=== PATIENT | male | born 1935 | race Caucasian/White ===

== ENCOUNTER 2016-07-07 08:45 | Inpatient (IN) ==
[2016-07-07] MEDS ORDERED: *HR* Morphine 2 MG/ML SYRINGE IVP ONE ×2 (09:14→23:54)
[2016-07-07] MEDS ORDERED: Ondansetron ODT 4 MG TAB.RAPDIS SL ONE (09:14)
[2016-07-07] MEDS ORDERED: 0.9 % Sodium Chloride 1,000 ML IVC ONE (09:14)
--- NOTE | 2016-07-07 09:22 | Emergency Department Note ---
Disposition Clinical Impression: Small bowel obstruction Disposition: Admitted As Inpatient Condition: Good Abdominal Pain HPI - General Chief Complaint: ED Abdominal Pain Stated Complaint: ABD pain Time Seen by Provider: 07/07/16 09:03 Source: patient Nursing Notes Reviewed: Yes Vital Signs Reviewed: Yes - History of Present Illness HPI Narrative: 81-year-old male history of coronary artery disease presents to emergency department with ongoing abdominal pain. He was discharged from the hospital 2 days ago after spending 2 days in the hospital for small bowel obstruction ileitis. This was his first bout of small bowel obstruction and denies any abdominal surgeries in the past. Over the last 24 hours he has eaten a small amount of food, pizza last night. He has been passing gas occasionally but has not had a bowel movement or the urge to have a bowel movement. He has had some nausea without vomiting. No fevers or chills. Pain is diffusely in the abdomen described as crampy and intermittent but does not radiate into his back. Denies any chest pain, lightheadedness, syncope, cough or shortness of breath Pain Scale: 6 - Related Data Home Medications Medication Instructions Recorded Confirmed Amlodipine Besylate [Norvasc] 10 mg PO DAILY 02/20/15 07/03/16 Aspirin Enteric Coated [Aspirin EC] 81 mg PO DAILY 02/20/15 07/03/16 Carvedilol [Coreg] 25 mg PO BID 02/20/15 07/03/16 Clopidogrel [Plavix] 75 mg PO DAILY 02/20/15 07/03/16 Lisinopril [Zestril] 20 mg PO DAILY 02/20/15 07/03/16 Pravastatin Sodium 20 mg PO DAILY 02/20/15 07/03/16 Tramadol HCl/Acetaminophen 1 tab PO Q6H PRN 02/20/15 07/03/16 [Tramadol-Acetaminophn 37.5-325] Zolpidem Tartrate [Edluar] 5 mg PO HS 06/25/16 07/03/16 Previous Rx's Medication Instructions Recorded Omeprazole [PriLOSEC] 20 mg PO BIDAC #30 cap 06/25/16 Ciprofloxacin [Cipro] 500 mg PO BID #16 tablet 07/05/16 Hydrocodone/Acetaminophen 1 each PO Q6H PRN #15 tablet 07/05/16 [Hydrocodon-Acetaminophen 5-325] MetroNIDAZOLE [Flagyl] 500 mg PO TID #24 tablet 07/05/16 Sennosides/Docusate Sodium [Senna 1 each PO BID #20 tablet 07/05/16 Plus] Allergies Allergy/AdvReac Type Severity Reaction Status Date / Time No Known Allergies Allergy Verified 07/03/16 11:34 All systems ED: reviewed and negative except as stated. Constitutional: Denies: fever Cardiovascular: Denies: chest pain, dyspnea on exertion Respiratory: Denies: cough, dyspnea Gastrointestinal: Reports: abdominal pain, nausea. Denies: vomiting, diarrhea, hematemesis, melena, hematochezia Genitourinary: Denies: dysuria Musculoskeletal: Denies: back pain Integumentary: Denies: rash Neurological: Denies: headache Abdominal Pain PMH - Past Medical History Medical history: Reports: cardiomyopathy, coronary artery disease, hypertension , myocardial infarction, other Male Surgical History: Reports: carotid endarterectomy Psychiatric history: Reports: no psych history - Social History Smoking status: Former smoker Alcohol use: Reports: none Drug use: Reports: none, other Physical Exam General: He appears comfortable, occasionally have an abdominal cramping, talkative, alert and oriented and appropriate Cardiovascular: Regular rate and rhythm. S1, S2. No murmurs, rubs or gallops. Respiratory: Mild expiratory rhonchi bilaterally without any respiratory distress, wheezing or rales. No coughing, speaking in full sentences. Abdomen: Soft with voluntary guarding throughout. Most of his tenderness is localized in the suprapubic area. No overlying signs of injury. Hyperactive bowel sounds. No palpable organomegaly. No hernias palpated. Eyes: Conjunctiva clear without scleral icterus HENT: No oral mucosal lesions, moist mucous membranes Neuro: Alert and oriented 3, moving all extremities appropriately Musculoskeletal: No joint tenderness or swelling Skin: No redness, swelling, edema or signs of DVT. No signs of infection. Psych: Appropriate - General Limitations: no limitations General appearance: alert, in no apparent distress Course Course Narrative: Presents to the emergency department with lower abdominal pain and nausea. He was admitted on 07/03/16 due to small bowel obstruction with ileitis. He spent 2 days in the hospital, was NPO, began tolerating fluids and was DC'd home. At home he had little appetite and ongoing nausea with no bowel movement. He is however passing gas still. No history of surgeries on the abdomen or previous bowel obstructions. On exam today his abdomen is tender mostly in the lower area, he is afebrile and appears well without any peritoneal signs. He was given pain medicine in the ER with good pain control. Repeat imaging today was performed and CAT scan shows ongoing small bowel obstruction with similar transition point with similar inflammatory changes of the bowel wall. It does demonstrate a mass in the same area that is concerning for malignancy. He also has a stable aortic dilation. We did not use contrast this patient bc he had reported history of renal insufficiency and last time he was here his creatinine was slightly elevated. Plan to admit for small bowel obstruction, partial versus complete an NG tube was not placed at this time but may be required during his stay. Discussed with the deposition reporter hospitalist Dr. Wayne who accepts for admission, no further orders at this time Vital Signs Temperature 99.3 F 07/07/16 08:48 Pulse Rate 79 07/07/16 08:48 Respiratory Rate 16 07/07/16 08:48 Blood Pressure 167/51 07/07/16 08:48 O2 Sat by Pulse Oximetry 97 07/07/16 08:48 Temperature 99.3 F 07/07/16 08:48 Pulse Rate 73 07/07/16 11:09 Respiratory Rate 15 07/07/16 11:09 Blood Pressure 134/90 07/07/16 11:09 O2 Sat by Pulse Oximetry 99 07/07/16 11:09 Oxygen Delivery Oxygen Delivery Room Air Abdominal Pain - Lab Data Result diagrams: 07/07/16 09:36 07/07/16 09:36 Lab Results 07/07/16 07/07/16 Range/Units 09:36 09:36 WBC 8.7 (4.3-11.1) K/mcL RBC 4.61 (4.19-5.50) M/mcL Hgb 13.0 D (12.9-16.9) g/dL Hct 39.6 (37.5-50.1) % MCV 85.9 (83.0-100.0) fL MCH 28.2 (28.0-33.3) pg MCHC 32.8 (31.6-35.5) g/dL RDW 12.9 (11.5-14.5) % Plt Count 208 (140-400) K/mcL MPV 10.4 (9.4-12.4) fL Immature Gran % 0.3 (0-4) % Seg Neutrophils % 81.3 % Lymphocytes % 8.6 % Monocytes % 8.9 % Eosinophils % 0.7 % Basophils % 0.2 % Neutrophils # 7.1 (1.6-8.9) K/mcL Lymphocytes # 0.8 (0.6-4.6) K/mcL Monocytes # 0.8 (0.0-1.3) K/mcL Eosinophils # 0.1 (0.0-0.6) K/mcL Basophils # 0.0 (0.0-0.2) K/mcL Sodium 142 (136-145) mEq/L Potassium 3.6 (3.5-4.5) mEq/L Chloride 108 (98-109) mEq/L Carbon Dioxide 27 (19-29) mEq/L BUN 14 D (8-26) mg/dL Creatinine 1.24 (0.72-1.25) mg/dL Est GFR ( Amer) > 60 (> 60) Est GFR (Non-Af Amer) 56 L (> 60) BUN/Creatinine Ratio 11 (6-26) Glucose 134 H (70-99) mg/dL Calculated Osmolality 296 (280-300) Calcium 8.9 (8.6-10.8) mg/dL
[2016-07-07 09:41] LABS: Basophils % 0.2 %; Eosinophils # 0.1 K/mcL (0.0-0.6); Eosinophils % 0.7 %; Hematocrit 39.6 % (37.5-50.1); Immature Granulocytes % 0.3 % (0-4); Lymphocytes # 0.8 K/mcL (0.6-4.6); Lymphocytes % 8.6 %; Mean Corpuscular HGB Conc 32.8 g/dL (31.6-35.5); Mean Corpuscular Hemoglobin 28.2 pg (28.0-33.3); Mean Corpuscular Volume 85.9 fL (83.0-100.0); Mean Platelet Volume 10.4 fL (9.4-12.4); Monocytes # 0.8 K/mcL (0.0-1.3); Monocytes % 8.9 %; Neutrophils # 7.1 K/mcL (1.6-8.9); Platelet Count 208 K/mcL (140-400); Red Blood Count 4.61 M/mcL (4.19-5.50); Red Cell Distribution Width 12.9 % (11.5-14.5); Segmented Neutrophils % 81.3 %
[2016-07-07 09:53] LABS: BUN/Creatinine Ratio 11 (6-26); Blood Urea Nitrogen 14 mg/dL (8-26); Calcium 8.9 mg/dL (8.6-10.8); Carbon Dioxide 27 mEq/L (19-29); Chloride 108 mEq/L (98-109); Glucose 134 mg/dL (70-99); Osmolality,Calculated 296 (280-300); Potassium 3.6 mEq/L (3.5-4.5); Sodium 142 mEq/L (136-145); eGFR For African Americans > 60 (> 60); eGFR For Non-African Americans 56 (> 60)
[2016-07-07] MEDS ORDERED: *HR* Morphine 2 MG/ML SYRINGE IV ONE (10:53)
--- NOTE | 2016-07-07 11:25 | Internal Med History&Physical ---
<Ketty Banuelos - Last Filed: 07/07/16 13:38> Date of Encounter: 07/07/16 Time of Encounter: 10:50 Assessment and Plan (1) Partial small bowel obstruction Current visit: No Status: Acute - Recurrent partial small bowel obstruction likely secondary to the 3 cm x 2.7 cm x 2.9 cm RLQ mass as seen on CT A/P. - NPO, IV NS and supportive care. - Will hold antibiotics for now given no sign of infection (leukocytosis or fever). - Pain control with prn IV morphine. - Will consider NG tube if it persists or aggravates. - Given the finding of mass likely causing recurrent SBO, general surgery is consulted for further evaluation and management. Appreciate surgery input. - Continue to monitor. (2) Abdominal aortic aneurysm Current visit: No Status: Chronic - CT A/P showed unchanged 4.6 cm x 4.6 cm infrarenal abdominal aneurysm. - Will have patient follow up with his PCP regarding monitoring. Qualifiers: Presence of rupture: without rupture Qualified Code(s): I71.4 - Abdominal aortic aneurysm, without rupture (3) Coronary artery disease Current visit: No Status: Chronic - History of CAD status s/p PCI to the LAD and right coronary arteries (2011 / [facility]) Qualifiers: Coronary Disease-Associated Artery/Lesion type: [place] artery [place] vs. transplanted heart: [place] heart Associated angina: angina presence unspecified Qualified Code(s): I25.10 - Atherosclerotic heart disease of [place] coronary artery without angina pectoris (4) Hypertension Current visit: No Status: Chronic - Given patient's SBO, will hold PO medications for now. Qualifiers: Hypertension type: essential hypertension Qualified Code(s): I10 - Essential (primary) hypertension (5) DVT prophylaxis Current visit: Yes Status: Acute - SQ heparin. Internal Medicine - H&P: HPI Chief complaint: Abdominal pain Admitted From: Home Plans for Post Hospital Care: Home History of present illness: Mr. Rivas is a 81 year old male with PMH of PUD, HTN, HLD, CAD s/p PCI to the LAD and right coronary arteries (2011 / [facility]), ischemic cardiomyopathy (Echo from 02/2014: EF 45%. Mildly dilated left ventricle. Moderate diastolic dysfunction). Patient was admitted four days ago for partial small bowel obstruction and possible ielitis and discharged two days ago with Cipro and Flagyl. Patient presented to ED today with abdominal pain starting last night. Patient describes it as intermittent sharp pain. Patient admits having some pizza after discharge. Patient still pass gas but last bowel movement was 3-4 days ago. Patient denies nausea, vomiting, fever, chills, dysuria, hematuria, chest pain, shortness of breath. Patient reports no known abdominal surgery or diagnosis of cancer. Patient states he never has EGD or colonoscopy before. Past Med Surg Social Fam HX - Past Medical History Medical history: cardiomyopathy, coronary artery disease, hypertension, myocardial infarction, other Psychiatric history: no psych history - Past Surgical History Surgical History: carotid endarterectomy - Social History Smoking Status: Former smoker Packs per day: 1 pack/day for 50 years. Quitted 14 years ago. Smokeless Tobacco Status: No Alcohol use: none Drug use: none, other - Family History Father Living Status: Hx Family Genitourinary Disorders: Yes (Kidney problem) Hx Family Medical Disorders: Yes (TB) Brother Hx Family Cardiac Disorders: Yes (heart disease) Hx Family Endocrine Disorder: Yes (DM) Internal Medicine - H&P: Meds Amlodipine Besylate [Norvasc] 10 mg PO DAILY 02/20/15 [History] Aspirin Enteric Coated [Aspirin EC] 81 mg PO DAILY 02/20/15 [History] Carvedilol [Coreg] 25 mg PO BID 02/20/15 [History] Clopidogrel [Plavix] 75 mg PO DAILY 02/20/15 [History] Lisinopril [Zestril] 20 mg PO DAILY 02/20/15 [History] Pravastatin Sodium 20 mg PO DAILY 02/20/15 [History] Tramadol HCl/Acetaminophen [Tramadol-Acetaminophn 37.5-325] 1 tab PO Q6H PRN [History] Zolpidem Tartrate [Edluar] 5 mg PO HS 06/25/16 [History] Sennosides/Docusate Sodium [Senna Plus] 1 each PO BID #20 tablet 07/05/16 [Rx] Omeprazole [PriLOSEC] 40 mg PO DAILY 07/07/16 [History] Allergies No Known Allergies Allergy (Verified 07/03/16 11:34) All Systems PM: A 10-system review of systems was performed and is negative for pertinent findings except as documented above in the HPI. - Constitutional Constitutional: no chills, no fever(s), no weight gain - EENT Eyes: no loss of vision Ears: no decreased hearing Nose, mouth and throat: no dysphagia, no odynophagia - Cardiovascular Cardiovascular ROS IM: no chest pain, no edema, no syncope - Respiratory Respiratory: no cough, no dyspnea, no hemoptysis - Gastrointestinal Gastrointestinal: as per HPI - Genitourinary Genitourinary ROS male: no difficulty urinating, no dysuria, no hematuria - Musculoskeletal Musculoskeletal ROS IM: no arthralgias, no myalgias - Integumentary Integumentary IM: no pruritus, no rash - Neurological Neurological ROS: no focal weakness, no numbness, no tingling - Hematologic/Lymphatic Hematologic/Lymphatic: no easy bleeding, no easy bruising - Constitutional Vitals: Temp Pulse Resp BP Pulse Ox 99.3 F 73 15 134/90 99 07/07/16 08:48 07/07/16 11:09 07/07/16 11:09 07/07/16 11:09 07/07/16 11:09 General appearance: Present: cooperative, A&O X 3, no acute distress, answers questions appropriately - Head Head exam: Present: atraumatic, normocephalic - Eye Eye exam: Present: PERRL, conjuntiva pink, sclera anicteric Pupils: Present: PERRL - Neck Neck exam general surgery: Present: supple, trachea midline. Absent: lymphadenopathy - Respiratory Respiratory exam: Present: CTAB. Absent: accessory muscle use, rales, rhonchi, wheezes - Cardiovascular Cardiovascular exam: Present: RRR, +S1, +S2. Absent: diastolic murmur, gallop, rubs, systolic murmur - GI/Abdominal GI/Abdominal exam: Present: normal bowel sounds, soft, tenderness (Some bilateral lower quadrant discomfort on deep palpation.), no peritoneal signs. Absent: distended, guarding - Extremities Exam Extremities exam: Present: warm, radial pulses palpable and symetrical. Absent : calf tenderness, cyanotic, pedal edema - Neurological Exam Neurological exam: Present: CN II-XII intact, oriented X3, no focal deficits. Absent: pronater drift, facial droop, speech deficit - Skin Skin exam: Present: dry, intact, warm Internal Med - H&P Results - Labs CBC & Chem 7: 07/07/16 09:36 07/07/16 09:36 Labs: Short CBC 07/07/16 Range/Units 09:36 WBC 8.7 (4.3-11.1) K/mcL Hgb 13.0 D (12.9-16.9) g/dL Hct 39.6 (37.5-50.1) % Plt Count 208 (140-400) K/mcL Neutrophils # 7.1 (1.6-8.9) K/mcL BMP 07/07/16 09:36 Sodium 142 Potassium 3.6 Chloride 108 Carbon Dioxide 27 BUN 14 D Creatinine 1.24 Glucose 134 H Calcium 8.9 - Impressions ITS Impressions Abdomen/Pelvis CT 07/07/16 09:15 IMPRESSION: 1. Persistent partial small bowel obstruction in the right lower quadrant. An unchanged transition point is associated with a subtle 3.0 cm x 2.8 cm x 2.9 cm mass with associated mesenteric tethering, suspicious for primary or secondary malignancy. Aggressive fibromatosis (desmoid) is an additional consideration. Tiny adjacent mesenteric lymph nodes may be metastatic or reactive. 2. Edematous small bowel with associated mesenteric edema proximal to the obstruction. Persistent trace free fluid is likely reactive. 3. Moderate gallbladder dilation with suggestion of layering hyperdensity, potentially biliary sludge or noncalcified gallstones. There are no associated findings of cholecystitis or biliary obstruction. No further evaluation is suggested in the absence of clinical findings of cholecystitis or cholestasis. 4. Moderate colonic diverticulosis without findings of acute diverticulitis. 5. Unchanged 4.6 cm x 4.6 cm infrarenal abdominal aortic aneurysm. 6. At least moderate coronary atherosclerotic calcifications. D/ / Teo Andersen MD / Teo Andersen MD Interpreting Provider: Teo Andersen MD <Sanjay Wayne - Last Filed: 07/07/16 14:01> Date of Encounter: 07/07/16 Internal Medicine - H&P: HPI History of present illness: Mr. Rivas is a 81 year old male All Systems PM: A 10-system review of systems was performed and is negative for pertinent findings except as documented above in the HPI. - Constitutional Vitals: Temp Pulse Resp BP Pulse Ox 97.9 F 74 18 131/82 95 07/07/16 12:06 07/07/16 12:06 07/07/16 12:06 07/07/16 12:06 07/07/16 12:06 Internal Med - H&P Results - Labs CBC & Chem 7: 07/07/16 09:36 07/07/16 09:36 - Attending Attestation I have seen and examined this patient independently. I have discussed the case with the expert medical writer, Dr. Pablo Banuelos. I agree with the data gathering in the HPI, physical examination findings, assessment and plan as documented by the resident. Patient will continue with close monitoring, iv fluids, will consult surgery for further management. The plan of care was discussed in detail with the patient, he expressed understanding.
--- NOTE | 2016-07-07 11:30 | Emergency Department Note ---
Disposition Clinical Impression: Small bowel obstruction Disposition: Admitted As Inpatient Condition: Good General Adult HPI - General Chief complaint: ED Abdominal Pain Stated complaint: ABD pain Time Seen by Provider: 07/07/16 09:03 Source: patient Limitations: no limitations - History of Present Illness Pain Scale: 6 - Related Data Home Medications Medication Instructions Recorded Confirmed Amlodipine Besylate [Norvasc] 10 mg PO DAILY 02/20/15 07/03/16 Aspirin Enteric Coated [Aspirin EC] 81 mg PO DAILY 02/20/15 07/03/16 Carvedilol [Coreg] 25 mg PO BID 02/20/15 07/03/16 Clopidogrel [Plavix] 75 mg PO DAILY 02/20/15 07/03/16 Lisinopril [Zestril] 20 mg PO DAILY 02/20/15 07/03/16 Pravastatin Sodium 20 mg PO DAILY 02/20/15 07/03/16 Tramadol HCl/Acetaminophen 1 tab PO Q6H PRN 02/20/15 07/03/16 [Tramadol-Acetaminophn 37.5-325] Zolpidem Tartrate [Edluar] 5 mg PO HS 06/25/16 07/03/16 Previous Rx's Medication Instructions Recorded Omeprazole [PriLOSEC] 20 mg PO BIDAC #30 cap 06/25/16 Ciprofloxacin [Cipro] 500 mg PO BID #16 tablet 07/05/16 Hydrocodone/Acetaminophen 1 each PO Q6H PRN #15 tablet 07/05/16 [Hydrocodon-Acetaminophen 5-325] MetroNIDAZOLE [Flagyl] 500 mg PO TID #24 tablet 07/05/16 Sennosides/Docusate Sodium [Senna 1 each PO BID #20 tablet 07/05/16 Plus] Allergies Allergy/AdvReac Type Severity Reaction Status Date / Time No Known Allergies Allergy Verified 07/03/16 11:34 Constitutional: Denies: fever Cardiovascular: Denies: chest pain, dyspnea on exertion Respiratory: Denies: cough, dyspnea Gastrointestinal: Reports: abdominal pain, nausea. Denies: vomiting, diarrhea, hematemesis, melena, hematochezia Genitourinary: Denies: dysuria Musculoskeletal: Denies: back pain Integumentary: Denies: rash Neurological: Denies: headache Past Medical History - Past Medical History Medical history: Reports: cardiomyopathy, coronary artery disease, hypertension , myocardial infarction, other Surgical history: Reports: other Psychiatric history: Reports: no psych history - Social History Smoking Status: Former smoker Smokeless Tobacco Status: No Alcohol use: Reports: none Drug use: Reports: none, other Physical Exam - General Limitations: no limitations General appearance: alert, in no apparent distress Course - Reevaluation(s) Reevaluation #1: I saw the patient with the resident, Dr. Abel. Patient presents with abdominal discomfort and nausea and vomiting and no bowel movement for several days. He was recently discharged for a significant partial small bowel obstruction. Since being home all of his symptoms have returned. He has evidence of high-grade obstruction on the CAT scan. Patient is to be admitted to the hospital again. He is nontoxic in appearance. Time: 11:30 Vital Signs Temperature 99.3 F 07/07/16 08:48 Pulse Rate 79 07/07/16 08:48 Respiratory Rate 16 07/07/16 08:48 Blood Pressure 167/51 07/07/16 08:48 O2 Sat by Pulse Oximetry 97 07/07/16 08:48 Temperature 99.3 F 07/07/16 08:48 Pulse Rate 73 07/07/16 11:09 Respiratory Rate 15 07/07/16 11:09 Blood Pressure 134/90 07/07/16 11:09 O2 Sat by Pulse Oximetry 99 07/07/16 11:09 Oxygen Delivery Oxygen Delivery Room Air Medical Decision Making - Lab Data Result diagrams: 07/07/16 09:36 07/07/16 09:36 Lab Results 07/07/16 07/07/16 Range/Units 09:36 09:36 WBC 8.7 (4.3-11.1) K/mcL RBC 4.61 (4.19-5.50) M/mcL Hgb 13.0 D (12.9-16.9) g/dL Hct 39.6 (37.5-50.1) % MCV 85.9 (83.0-100.0) fL MCH 28.2 (28.0-33.3) pg MCHC 32.8 (31.6-35.5) g/dL RDW 12.9 (11.5-14.5) % Plt Count 208 (140-400) K/mcL MPV 10.4 (9.4-12.4) fL Immature Gran % 0.3 (0-4) % Seg Neutrophils % 81.3 % Lymphocytes % 8.6 % Monocytes % 8.9 % Eosinophils % 0.7 % Basophils % 0.2 % Neutrophils # 7.1 (1.6-8.9) K/mcL Lymphocytes # 0.8 (0.6-4.6) K/mcL Monocytes # 0.8 (0.0-1.3) K/mcL Eosinophils # 0.1 (0.0-0.6) K/mcL Basophils # 0.0 (0.0-0.2) K/mcL Sodium 142 (136-145) mEq/L Potassium 3.6 (3.5-4.5) mEq/L Chloride 108 (98-109) mEq/L Carbon Dioxide 27 (19-29) mEq/L BUN 14 D (8-26) mg/dL Creatinine 1.24 (0.72-1.25) mg/dL Est GFR ( Amer) > 60 (> 60) Est GFR (Non-Af Amer) 56 L (> 60) BUN/Creatinine Ratio 11 (6-26) Glucose 134 H (70-99) mg/dL Calculated Osmolality 296 (280-300) Calcium 8.9 (8.6-10.8) mg/dL Attestation Statement - Attestation Attestation: I, Dr. Valdes, examined this patient [id number] and my medical decision- making was reviewed with Dr. Abel, Resident Physician. I agree with the documented findings, disposition and treatment plan as described except to the extent set forth below. Please see my progress note for details.
[2016-07-07] MEDS ORDERED: Ondansetron 4 MG/2 ML VIAL IVP PRN (11:38)
[2016-07-07] MEDS ORDERED: Acetaminophen 325 MG TABLET PO PRN (11:38)
[2016-07-07] MEDS ORDERED: Naloxone 0.4 MG/ML INJ IVP PRN (11:38)
[2016-07-07] MEDS ORDERED: 0.9 % Sodium Chloride 1,000 ML IVC SCH (11:45)
--- NOTE | 2016-07-07 14:38 | General Surgery Consult Note ---
Date of Encounter: 07/07/16 Time of Encounter: 14:36 Assessment and Plan (1) Partial small bowel obstruction Current Visit: No Status: Acute recurrent partial small bowel obstruction most likely secondary to 3 x 2.7 x 2.9 cm right lower quadrant mass IV fluids Pain control colonoscopy tomorrow (2) Coronary artery disease Current Visit: No Status: Chronic nothing by mouth at this point in time Home meds include aspirin, Plavix, lisinopril, carvedilol, amlodipine, and pravastatin. Qualifiers: Coronary Disease-Associated Artery/Lesion type: [place] artery [place] vs. transplanted heart: [place] heart Associated angina: angina presence unspecified Qualified Code(s): I25.10 - Atherosclerotic heart disease of [place] coronary artery without angina pectoris (3) Hypertension Current Visit: No Status: Chronic see plan for coronary artery disease Management by medicine team Qualifiers: Hypertension type: essential hypertension Qualified Code(s): I10 - Essential (primary) hypertension (4) DVT prophylaxis Current Visit: Yes Status: Acute subcutaneous heparin Past Med Surg Social Fam HX - Past Medical History Medical history: cardiomyopathy, coronary artery disease, hypertension, myocardial infarction, other Psychiatric history: no psych history - Past Surgical History Surgical History: carotid endarterectomy - Social History Smoking Status: Former smoker Packs per day: 1 pack/day for 50 years. Quitted 14 years ago. Smokeless Tobacco Status: No Alcohol use: none Drug use: none, other - Family History Father Living Status: Hx Family Genitourinary Disorders: Yes (Kidney problem) Hx Family Medical Disorders: Yes (TB) Brother Hx Family Cardiac Disorders: Yes (heart disease) Hx Family Endocrine Disorder: Yes (DM) Medications and Allergies Amlodipine Besylate [Norvasc] 10 mg PO DAILY 02/20/15 [History] Aspirin Enteric Coated [Aspirin EC] 81 mg PO DAILY 02/20/15 [History] Carvedilol [Coreg] 25 mg PO BID 02/20/15 [History] Clopidogrel [Plavix] 75 mg PO DAILY 02/20/15 [History] Lisinopril [Zestril] 20 mg PO DAILY 02/20/15 [History] Pravastatin Sodium 20 mg PO DAILY 02/20/15 [History] Tramadol HCl/Acetaminophen [Tramadol-Acetaminophn 37.5-325] 1 tab PO Q6H PRN [History] Zolpidem Tartrate [Edluar] 5 mg PO HS 06/25/16 [History] Sennosides/Docusate Sodium [Senna Plus] 1 each PO BID #20 tablet 07/05/16 [Rx] Omeprazole [PriLOSEC] 40 mg PO DAILY 07/07/16 [History] Allergies No Known Allergies Allergy (Verified 07/03/16 11:34) Review of Systems All systems PM: A 10-system review of systems was performed and is negative for pertinent findings except as documented above in the HPI. - Constitutional weight loss, no anorexia, no chills, no fatigue, no fever(s) - Cardiovascular no chest pain - Respiratory no dyspnea - Gastrointestinal abdominal pain, change in bowel habits, constipation, no nausea, no vomiting - Genitourinary no dysuria, no urinary frequency, no urinary hesitancy, no urinary urgency General Surgery Exam Initial Vital Signs Temp Pulse Resp BP Pulse Ox 99.3 F 79 16 167/51 97 07/07/16 08:48 07/07/16 08:48 07/07/16 08:48 07/07/16 08:48 07/07/16 08:48 Exam Initial Vital Signs Temp Pulse Resp BP Pulse Ox 99.3 F 79 16 167/51 97 07/07/16 08:48 07/07/16 08:48 07/07/16 08:48 07/07/16 08:48 07/07/16 08:48 - General physical appearance well developed, well nourished, no distress - Eyes PERRL - ENT normal pinna, normal nares, normal mucosa - Neck trachea midline - Respiratory normal respiratory effort, clear to auscultation - Abdomen Abdomen: soft, tender, bowel sounds - Integumentary no rash - Neurologic CN 2-12 grossly intact - Psychiatric oriented to time, oriented to person, oriented to place, speech is normal Results - Labs 07/07/16 09:36 07/07/16 09:36 Abnormal lab results Est GFR (Non-Af Amer) 56 (> 60) L 07/07/16 09:36 Glucose 134 mg/dL (70-99) H 07/07/16 09:36 All other labs normal. Consult Discharge Plan - Plan Referrals: Tamera Portillo, MOBILE HOME SET UP PERSON [Primary Care Provider] -
[2016-07-07] MEDS ORDERED: Polyethylene Glycol 3350 255 GM POWDER PO ONE (15:48)
[2016-07-07] MEDS ORDERED: MetroNIDAZOLE 500 MG/100 ML 500 MG/100 ML BAG IVPB SCH (16:00)
[2016-07-07] MEDS: *HR* Heparin 5,000 UNIT/ML VIAL SQ SCH (17:26)
[2016-07-07] MEDS: *HR* Morphine 2 MG/ML SYRINGE IVP PRN ×2 (18:28→22:24)
[2016-07-07] MEDS: 0.9 % Sodium Chloride 1,000 ML IVC SCH (18:32)
[2016-07-07] MEDS: *HR* Metoprolol 5 MG/5 ML VIAL IVP SCH (20:26)
[2016-07-08] MEDS: *HR* Heparin 5,000 UNIT/ML VIAL SQ SCH ×4 (00:15→17:26)
[2016-07-08] MEDS: *HR* Morphine 2 MG/ML SYRINGE IVP PRN ×2 (02:38→08:17)
[2016-07-08] MEDS ORDERED: *HR* Morphine 2 MG/ML SYRINGE IVP ONE (04:39)
[2016-07-08 04:52] LABS: Basophils % 0.5 %; Eosinophils # 0.2 K/mcL (0.0-0.6); Eosinophils % 2.5 %; Hematocrit 34.8 % (37.5-50.1); Immature Granulocytes % 0.4 % (0-4); Lymphocytes # 0.8 K/mcL (0.6-4.6); Lymphocytes % 9.6 %; Mean Corpuscular HGB Conc 32.8 g/dL (31.6-35.5); Mean Corpuscular Hemoglobin 28.9 pg (28.0-33.3); Mean Corpuscular Volume 88.3 fL (83.0-100.0); Mean Platelet Volume 10.7 fL (9.4-12.4); Monocytes # 0.8 K/mcL (0.0-1.3); Monocytes % 10.2 %; Neutrophils # 6.1 K/mcL (1.6-8.9); Platelet Count 194 K/mcL (140-400); Red Blood Count 3.94 M/mcL (4.19-5.50); Segmented Neutrophils % 76.8 %
[2016-07-08] MEDS: 0.9 % Sodium Chloride 1,000 ML IVC SCH ×2 (04:55→17:24)
[2016-07-08 05:00] LABS: Hemoglobin 11.4 g/dL (12.9-16.9)
[2016-07-08 05:12] LABS: Alanine Aminotransferase 12 Units/L (0-55); Albumin 2.9 g/dL (3.5-5.0); Albumin/Globulin Ratio 0.9 (1.1-2.2); Alkaline Phosphatase 64 Units/L (38-126); Aspartate Amino Transferase 20 Units/L (5-34); BUN/Creatinine Ratio 10 (6-26); Bilirubin,Total 0.5 mg/dL (0.2-1.2); Blood Urea Nitrogen 11 mg/dL (8-26); Calcium 8.5 mg/dL (8.6-10.8); Carbon Dioxide 26 mEq/L (19-29); Chloride 109 mEq/L (98-109); Globulin 3.2 g/dL (2.4-3.5); Glucose 119 mg/dL (70-99); Osmolality,Calculated 293 (280-300); Potassium 3.6 mEq/L (3.5-4.5); Sodium 141 mEq/L (136-145); Total Protein 6.1 g/dL (6.0-8.3); eGFR For African Americans > 60 (> 60); eGFR For Non-African Americans > 60 (> 60)
[2016-07-08] MEDS: *HR* Metoprolol 5 MG/5 ML VIAL IVP SCH ×2 (08:05→21:31)
[2016-07-08] MEDS ORDERED: Ondansetron 4 MG/2 ML VIAL IVP PRN (08:44)
--- NOTE | 2016-07-08 09:33 | Event Note ---
Date of Encounter: 07/08/16 Time of Encounter: 08:45 I examined this patient and my medical decision-making was reviewed with Dr. Valle. I agree with the documented findings, disposition and treatment plan as described except to the extent set forth below. 81 yo male presented with abdominal pain and found to have partial SBO. Has recurrent SBO. States he hasn't had a bowel movement since going home 4 days ago. Has been taking solid food. Past medical, surgical, social, family and review of systems reviewed from admission document 07/07/16 and no change. Exam reveals patient in a chair in mild to moderate distress. Clear to auscultation bilaterally. Posterior second heart sounds are present. Regular rate and rhythm. Feeble bowel sounds present. Tenderness to palpation diffusely over the abdomen. 1. Partial small bowel obstruction-admit to inpatient status. High risk due to risk of possible need for surgical intervention if he does not resolved with conservative measures. Nothing by mouth. Surgery consulted. Will follow recommendations. Intravenous fluids. Proton inhibitor IV. Expect the patient to stay in the hospital at least 2 midnights. Expected discharge disposition is to home. 2. Abdominal aortic aneurysm 3. Coronary artery disease 4. Hypertension Abner Blanton MD
[2016-07-08] MEDS: Pantoprazole 40 MG VIAL IVP SCH (09:51)
--- NOTE | 2016-07-08 10:41 | Internal Med Progress Note ---
Date of Encounter: 07/08/16 Time of Encounter: 09:00 - Assessment and plan (1) Abdominal mass, RLQ (right lower quadrant) Current Visit: Yes Status: Acute Assessment and plan: Surgery is on board. He is planned for exploratory laparoscopy with possible conversion to exploratory laparotomy. ZOfran PRN nausea. IV protonix for GI prophylaxis. (2) DVT prophylaxis Current Visit: Yes Status: Acute Assessment and plan: Heparin SQ (3) Small bowel obstruction Current Visit: Yes Status: Acute Assessment and plan: Patient tried gatorade bowel prep and miralax without success. Plan as above. (4) Coronary artery disease Current Visit: No Status: Chronic Assessment and plan: hx of CAD. s/p PCi with 3 stents. Plavix and aspirin with held due to surgery. Continue statin and b-aury. Qualifiers: Coronary Disease-Associated Artery/Lesion type: [place] artery [place] vs. transplanted heart: [place] heart Associated angina: angina presence unspecified Qualified Code(s): I25.10 - Atherosclerotic heart disease of [place] coronary artery without angina pectoris (5) Hypertension Current Visit: No Status: Chronic Assessment and plan: BP elevated at 150/80s. Start home lisinopril. Qualifiers: Hypertension type: essential hypertension Qualified Code(s): I10 - Essential (primary) hypertension - Subjective Interval history: 81y/o M hx of CAD s/p PCi x3 stents, HTN, GERd, stable AAA presented with cc of band like lower abdominal pain. He denies BM for last four days. CT Scan indicated an obstructive mass in RLQ. Surgery was on board and prepped pateint for colonsocopy. However, after prep patient did not have bowel movement. He then under went CT with iv and oral contrast which found acute sbo in RLQ due to mesenteric mass. Patient continues to have RLQ sharp pains intermittently. He denies CP, SOB, vomiting. He admits to passing gas. - Constitutional Vitals: Temp Pulse Resp BP Pulse Ox 99.0 F 76 15 160/85 94 L 07/08/16 06:57 07/08/16 06:57 07/08/16 06:57 07/08/16 06:57 07/08/16 06:57 General appearance: Present: cooperative, A&O X 3, no acute distress, answers questions appropriately - Eye Eye exam: Present: sclera anicteric - Respiratory Respiratory exam: Present: CTAB. Absent: rales, rhonchi, wheezes - GI/Abdominal GI/Abdominal exam: Present: normal bowel sounds, soft, tenderness (mild RLQ). Absent: distended - Extremities Exam Extremities exam: Present: warm, radial pulses palpable and symetrical. Absent : pedal edema, tenderness - Neurological Exam Neurological exam: Present: CN II-XII intact, oriented X3, no focal deficits. Absent: pronater drift, facial droop, speech deficit - Skin Skin exam: Present: dry, intact Internal Medicine: Result - Labs CBC & Chem 7: 07/08/16 04:15 07/08/16 04:15 - Diagnostic Studies CT scan - abdomen Status: image reviewed by me Consult Discharge Plan - Plan Referrals: Tamera Portillo, DIRECTOR SMB SALES [Primary Care Provider] -
--- NOTE | 2016-07-08 10:43 | General Surgery Progress Note ---
<Sandi Taylor - Last Filed: 07/08/16 10:41> Date of Encounter: 07/08/16 Time of Encounter: 08:15 Subjective Patient reports: still having pain, voiding w/o difficulty, no flatus, no bowel movement, nausea (did have nausea with the bowel prep last night but none currently), afebrile, other (Patient completed the Miralax and Gatorade bowel prep and did not have a bowel movement) Objective - General physical appearance well developed, well nourished, no distress, moderate pain - Eyes normal ocular movement - ENT normal mucosa, atraumatic, normocephalic - Neck Neck exam: trachea midline - Respiratory normal respiratory effort, clear to auscultation - Cardiovascular Cardiovascular exam: Present: RRR - Abdomen Abdomen: Present: bowel sounds present (minimal, hypoactive), soft, distended ( mildly) - Integumentary no rash - Neurologic CN 2-12 grossly intact - Musculoskeletal normal gait, normal posture - Psychiatric oriented to time, oriented to person, oriented to place, speech is normal, memory intact - Labs 07/08/16 04:15 07/08/16 04:15 Consult Discharge Plan - Plan Referrals: Tamera Portillo, DIRECTOR OF PROGRAMMING [Primary Care Provider] - <Curt Becker E - Last Filed: 07/08/16 12:29> Date of Encounter: 07/08/16 Time of Encounter: 12:28 - Assessment and Plan (1) Small bowel obstruction Current Visit: Yes Status: Acute I had a discussion with the patient regarding the right lower quadrant mass. This could be related to a GIST tumor or lymphadenopathy. There could also be other types of tumors associated in this area. However, he will require some sort of exploration. In going to attempt this with laparoscopy, if unsuccessful we will plan for exploratory laparotomy and resection of the affected area. Objective - Labs 07/08/16 04:15 07/08/16 04:15
[2016-07-08] MEDS: *HR* HYDROmorphone (PF) 1 MG/ML SYRINGE IVP PRN ×2 (13:41→19:39)
[2016-07-09] MEDS: *HR* Heparin 5,000 UNIT/ML VIAL SQ SCH ×3 (00:51→15:18)
[2016-07-09 06:38] LABS: Basophils # 0.1 K/mcL (0.0-0.2); Basophils % 0.8 %; Eosinophils # 0.4 K/mcL (0.0-0.6); Eosinophils % 4.9 %; Hematocrit 38.6 % (37.5-50.1); Hemoglobin 12.5 g/dL (12.9-16.9); Immature Granulocytes % 0.5 % (0-4); Lymphocytes # 0.9 K/mcL (0.6-4.6); Lymphocytes % 10.7 %; Mean Corpuscular HGB Conc 32.4 g/dL (31.6-35.5); Mean Corpuscular Hemoglobin 28.8 pg (28.0-33.3); Mean Corpuscular Volume 88.9 fL (83.0-100.0); Mean Platelet Volume 10.9 fL (9.4-12.4); Monocytes # 0.9 K/mcL (0.0-1.3); Monocytes % 9.8 %; Neutrophils # 6.5 K/mcL (1.6-8.9); Platelet Count 215 K/mcL (140-400); Red Blood Count 4.34 M/mcL (4.19-5.50); Segmented Neutrophils % 73.3 %
[2016-07-09 06:44] LABS: BUN/Creatinine Ratio 10 (6-26); Blood Urea Nitrogen 11 mg/dL (8-26); Calcium 8.7 mg/dL (8.6-10.8); Carbon Dioxide 23 mEq/L (19-29); Chloride 108 mEq/L (98-109); Glucose 90 mg/dL (70-99); Magnesium 1.7 mg/dL (1.6-2.6); Osmolality,Calculated 287 (280-300); Potassium 3.7 mEq/L (3.5-4.5); Sodium 139 mEq/L (136-145); eGFR For African Americans > 60 (> 60); eGFR For Non-African Americans > 60 (> 60)
[2016-07-09] MEDS ORDERED: cefOXitin 2,000 MG in D5% in Water (Mini-Bag+) 100 ML IVPB ONE (08:00)
[2016-07-09] MEDS: 0.9 % Sodium Chloride 1,000 ML IVC SCH ×2 (08:07→20:43)
[2016-07-09] MEDS: Pantoprazole 40 MG VIAL IVP SCH (08:07)
[2016-07-09] MEDS: *HR* Metoprolol 5 MG/5 ML VIAL IVP SCH ×2 (08:08→20:43)
[2016-07-09] MEDS: *HR* HYDROmorphone (PF) 1 MG/ML SYRINGE IVP PRN ×5 (08:08→22:18)
[2016-07-09] MEDS ORDERED: Lisinopril 20 MG TABLET PO SCH (09:00)
--- NOTE | 2016-07-09 10:11 | Event Note ---
Date of Encounter: 07/09/16 Time of Encounter: 10:00 I examined this patient and my medical decision-making was reviewed with Dr. Carbajal. I agree with the documented findings, disposition and treatment plan as described except to the extent set forth below. Patient had a massive BM today AM. Feels much better. BS + on exam and not tender to palpation. 1. SBO - Resolved with Bowel movement today. For exploratory laparoscopy with possible laparotomy today @ 1900. Willl follow up results. Appreciate surgery input and assistance. High risk due to need for surgical intervention. Abner Blanton MD
--- NOTE | 2016-07-09 10:16 | ECHO - Doppler Report ---
Echocardiogram Name: Delbert Rivas Date of Study: 07/08/2016 Date: 1935 Ht: 74.0 in Medical Record#: [id number] Age: 81 Wt: 220.0 lb Gender: Male BSA: 2.26 Order #: [id number] Location: [facility] Room #: [facility] Reading Physician: Denton Rolon DO, MIGUEL, ОЛЬГА VALLE Heel Seat Pounder: Chloe Grajeda Ordering Physician: Abner Blanton MD Primary Physician: Tamera Portillo CNP Indications: Coronary artery disease Impressions: LVEF 60%. Normal LV chamber size, wall thickness and function. Asymmetric hypertrophy of the basal septum. No LVOT obstruction identified. Mild left ventricular diastolic dysfunction. Atypical septal motion consistent with paced rhythm. Normal right ventricular structure and function. Unable to estimate RVSP due to lack of TR jet. A device lead was visualized in the right atrium and right ventricle. No obvious significant valvular dysfunction. Compared to prior report from 2014, LVEF appears improved. Left Ventricular Wall Motion: Rest Echo Findings All wall segments showed normal motion. Findings: Study Quality * Technically sub-optimal due to poor echocardiographic windows. ECG Findings * Paced rhythm. Left Ventricle * LVEF 60%. * Normal LV chamber size, wall thickness and function. * Asymmetric hypertrophy of the basal septum. No LVOT obstruction identified. * Mild left ventricular diastolic dysfunction. * Atypical septal motion consistent with paced rhythm. Right Ventricle * Normal right ventricular structure and function. Left Atrium * Mildly dilated left atrium. Right Atrium * Normal right atrial size. Interatrial Septum * Interatrial septum not well evaluated. Aortic Valve * Aortic valve not well visualized. * Grossly, there is calcification of the aortic valve leaflets. * No aortic regurgitation. * No aortic stenosis. Mitral Valve * Normal mitral valve structure and function. * No mitral stenosis. * No mitral regurgitation. Tricuspid Valve * Normal tricuspid valve structure and function. * No tricuspid regurgitation. * Unable to estimate RVSP due to lack of TR jet. Pulmonic Valve * Pulmonic valve not well visualized. Aorta * Normally sized aortic root. Pericardium * The pericardium appears normal. IVC * The IVC is not well evaluated. Device lead * A device lead was visualized in the right atrium and right ventricle. Pulmonary Artery * Normal visualized portions of the main pulmonary artery. History Hypertension Hypercholesteremia History of CAD/PTCA Myocardial Infarction Pacer/ICD Implant 02/08/2014 a Previous Echo was performed. Measurements: BP: 129/ 72 2D Normal Values RVIDd: 3.30 cm <2.7 cm IVSd: 1.70 cm 0.6 - 1.0 cm LVIDd: 4.80 cm 3.7 - 5.6 cm LVPWd: 1.30 cm 0.6 - 1.1 cm LVIDs: 2.80 cm 1.5 - 3.6 cm AO: 3.00 cm < 4.0 cm LA: 5.10 cm 2.0 - 4.0cm %FS: 41.70 cm >25 % LA volume: 47 Mitral Valve Peak E:.62 m/sec Peak A:.97 m/sec E/A Ratio:0.6 Peak E' Lat [place]:11.2 cm/s Peak E' Med [place]:6.34 cm/s E/E' Lat Ratio:5.6 E/E' Med Ratio:9.8 Tricuspid Valve TV Regurg Peak Grad: 7.00mmHg TV Regurg Peak Nem[place]: 1.28m/sec Updated by Denton Rolon DO, FACC, LEONARD, ОЛЬГА on 07/09/2016 10:03:40 AM electronically signed on 07/09/2016 10:11:09 AM with status of Final Wall Motion [place]: 1=Normal, 2=Hypokinesis, 3=Akinesis, 4=Dyskinesis, 5=Aneurysmal, 6=Hyperkinetic, X=Not Visualized (Blank)=Missing
--- NOTE | 2016-07-09 11:37 | Electrocardiograph Report ---
[facility] Test Date: 2016-07-08 Pat Name: JANIS FELICIANO Department: 114 Room: [facility] Gender: M Fly Fishing Guide: [place] : 1935 Requested By: Abner Blanton Order Number: [id number] Reading MD: Cricket Loomis Measurements Intervals [place] Rate: 78 P: 54 MO: 151 QRS: -66 QRSD: 158 T: 92 QT: 435 QTc: 468 Interpretive Statements ELECTRONIC VENTRICULAR PACEMAKER Electronically Signed On 07-09-16 11:36:04 EST by Cricket Loomis
--- NOTE | 2016-07-09 12:22 | Internal Med Progress Note ---
Date of Encounter: 07/09/16 Time of Encounter: 09:00 - Assessment and plan (1) Abdominal mass, RLQ (right lower quadrant) Current Visit: Yes Status: Acute Assessment and plan: Surgery is on board. He is planned for exploratory laparoscopy with possible conversion to exploratory laparotomy. ZOfran PRN nausea. IV protonix for GI prophylaxis. NPO diet (2) DVT prophylaxis Current Visit: Yes Status: Acute Assessment and plan: Heparin SQ (3) Small bowel obstruction Current Visit: Yes Status: Acute Assessment and plan: Resolved. (4) Coronary artery disease Current Visit: No Status: Chronic Assessment and plan: hx of CAD. s/p PCi with 3 stents. Denies CP. Plavix and aspirin with held due to surgery. Continue statin and b-aury. Qualifiers: Coronary Disease-Associated Artery/Lesion type: [place] artery [place] vs. transplanted heart: [place] heart Associated angina: angina presence unspecified Qualified Code(s): I25.10 - Atherosclerotic heart disease of [place] coronary artery without angina pectoris (5) Hypertension Current Visit: No Status: Chronic Assessment and plan: Controlled. Start home lisinopril. Qualifiers: Hypertension type: essential hypertension Qualified Code(s): I10 - Essential (primary) hypertension - Subjective Interval history: Patient had BM today. His RLQ abdominal pain is reduced from yesterday. He denies any overnight issues. Patient will undergo exploratory laparotomy. - Constitutional Vitals: Temp Pulse Resp BP Pulse Ox 98.3 F 74 16 142/73 96 07/09/16 11:25 07/09/16 11:25 07/09/16 11:25 07/09/16 11:25 07/09/16 11:25 General appearance: Present: cooperative, A&O X 3, no acute distress, answers questions appropriately - Respiratory Respiratory exam: Present: CTAB. Absent: rales, rhonchi, wheezes - Cardiovascular Cardiovascular exam: Present: RRR, +S1, +S2 - GI/Abdominal GI/Abdominal exam: Present: normal bowel sounds (RLQ), soft, tenderness. Absent : distended Internal Medicine: Result - Labs CBC & Chem 7: 07/09/16 05:59 07/09/16 05:59 Labs: Short CBC 07/09/16 Range/Units 05:59 WBC 8.8 (4.3-11.1) K/mcL Hgb 12.5 L (12.9-16.9) g/dL Hct 38.6 (37.5-50.1) % Plt Count 215 (140-400) K/mcL Neutrophils # 6.5 (1.6-8.9) K/mcL BMP 07/09/16 05:59 Sodium 139 Potassium 3.7 Chloride 108 Carbon Dioxide 23 BUN 11 Creatinine 1.15 Glucose 90 Calcium 8.7 Consult Discharge Plan - Plan Referrals: Tamera Portillo, GROUNDS MANAGER [Primary Care Provider] -
[2016-07-09] MEDS ORDERED: *HR* Propofol 200 MG/20 ML VIAL IVP ONE (14:54)
[2016-07-09] MEDS ORDERED: Ondansetron 4 MG/2 ML VIAL ONE (14:55)
[2016-07-09] MEDS ORDERED: *HR* FentaNYL (PF) 100 MCG/2 ML VIAL ONE ×3 (14:55→16:40)
[2016-07-09] MEDS ORDERED: *HR* Rocuronium Bromide 50 MG/5 ML VIAL ONE (14:55)
[2016-07-09] MEDS ORDERED: *HR* Succinylcholine 200 MG/10 ML VIAL IVP ONE (14:55)
[2016-07-09] MEDS ORDERED: Lidocaine -MPF 2% 2 ML VIAL ONE (14:55)
[2016-07-09] MEDS ORDERED: Dexamethasone 4 MG/ML VIAL ONE (14:55)
[2016-07-09] MEDS ORDERED: Lidocaine -MPF 4% 5 ML AMPUL ONE (15:17)
--- NOTE | 2016-07-09 15:22 | Anesthesia Evaluation PreOp ---
Date of Encounter: 07/09/16 Time of Encounter: 15:22 - Past History Planned Operation: Dx Laparoscopy re: SBO Cardiac History: CT, CHF, HTN (maintained on Norvasc, Coreg, Zestril), Hyperlipidemia (maintained on Pravastatin), Cardiac Stent (maintained on Plavix , ASA), Pacemaker/ICD (SR w'complete Heart Block, Pacemaker dependent, DDDR. Requires magnet for surgery), Other (PVD. ECHO 07/08/2016 - LVEF 60%, cardiomyopathy, hypertrophic basal septum without LVOT.) Pulmonary History: Former smoker (1ppd x 50yrs, quit 14 years ago) Other Medical History: Renal (CRI), GERD (maintained on Prilosec), Other ( REcurrent partial small bowel obstruction re: RLQ mass 3 x 2.7cm x 2.9cm) Anesthesia History: No Prior Anesthetic Complications, Past Anesthesia (CEA 2014) Alcohol Use: none Drug use: none, other Medications and Allergies Amlodipine Besylate [Norvasc] 10 mg PO DAILY 02/20/15 [History] Aspirin Enteric Coated [Aspirin EC] 81 mg PO DAILY 02/20/15 [History] Carvedilol [Coreg] 25 mg PO BID 02/20/15 [History] Clopidogrel [Plavix] 75 mg PO DAILY 02/20/15 [History] Lisinopril [Zestril] 20 mg PO DAILY 02/20/15 [History] Pravastatin Sodium 20 mg PO DAILY 02/20/15 [History] Tramadol HCl/Acetaminophen [Tramadol-Acetaminophn 37.5-325] 1 tab PO Q6H PRN [History] Zolpidem Tartrate [Edluar] 5 mg PO HS 06/25/16 [History] Sennosides/Docusate Sodium [Senna Plus] 1 each PO BID #20 tablet 07/05/16 [Rx] Omeprazole [PriLOSEC] 40 mg PO DAILY 07/07/16 [History] Allergies No Known Allergies Allergy (Verified 07/03/16 11:34) - Meds/Allergy Pre-op Review Medications Reviewed: Yes Allergies Reviewed: Yes Beta Blockers on Current Med List: Yes (Metoprolol) If Beta Blockers taken, Date/Time (Last Dose taken): 07/09/16 @ 0808 Anesthesia Results - Labs 07/09/16 05:59 07/09/16 05:59 Laboratory Results Impressions Abdomen/Pelvis CT 07/08/16 10:00 IMPRESSION: Findings of acute small bowel obstruction. Transition point is seen in the right lower quadrant where a. Dominant mesenteric mass is seen with additional smaller masses, most likely enlarged mesenteric nodes. Abdominal aortic aneurysm with dilatation of the iliac arteries Diverticulosis D/ / Cong Neves MD / Cong Neves MD Interpreting Provider: Cong Neves MD - Imaging EKG: image reviewed Anesthesia Exam Vital Signs Temp Pulse Resp BP Pulse Ox 07/09/16 11:25 98.3 F 74 16 142/73 96 07/09/16 08:04 77 16 114/72 96 07/09/16 06:56 98.4 F 98 16 101/63 96 07/09/16 04:00 98.2 F 71 18 121/74 97 07/09/16 00:00 98.1 F 66 16 124/74 97 07/08/16 20:00 98.7 F 68 18 129/72 96 07/08/16 19:44 71 132/69 07/08/16 16:41 98.7 F 68 18 134/77 96 Intake and Output 07/08/16 07/09/16 07/09/16 23:59 07:59 15:59 Intake Total 0 / 0 1000 / 1000 0 / 0 Output Total 600 / 600 Balance -600 / -600 1000 / 1000 0 / 0 Intake: IV Fluids 1000 / 1000 0.9 % Sodium Chloride 1, 1000 / 1000 000 ML @ 100 mls/hr IVC . Q10H [facility] Rx#:[id number] Oral 0 / 0 0 / 0 0 / 0 Output: Urine 600 / 600 Other: Meal NPO Percent of Meal Consumed 0% Stool Size Small Stool Consistency loose Stool Color Brown # Voids 1 Blood Glucose* 82 Height: 6'2" Weight: 220# NPO (# of Hours): MNOC - HEENT Pupil (Motor): Pupils equal, EOMI Mallampati: II Teeth: Poor dentition Oral Opening: Greater than 3 - TEACHER SELECTION SPECIALIST LOC: Oriented TEACHER SELECTION SPECIALIST Motor: Normal RUE, Normal LUE, Normal RLE, Normal LLE, Normal Face TEACHER SELECTION SPECIALIST Sensory: Normal: RUE, LUE, RLE, LLE, Face - Cardiac Rhythm: Regular Murmur: None - Pulmonary Breath Sounds: bilateral Clear Respiratory Effort: Symmetrical Anesthesia Assess/Plan ASA Score: 3 (CAD, PVD, HTN, Pacemaker/AICD, GERD) Anes Supervising Prov Stmt: PT seen/evaluated, R&B Discussed, questions answered and consent obtained. Johnny Leung MD
[2016-07-09] MEDS ORDERED: Albumin Human 5% 0 GM/0 ML VIAL ONE (15:36)
[2016-07-09] MEDS ORDERED: Acetaminophen IV 1,000 MG/100 ML INFUS..BTL ONE (15:36)
[2016-07-09] MEDS ORDERED: CefOXitin 2,000 MG VIAL IVPB ONE (15:57)
[2016-07-09] MEDS ORDERED: Neostigmine Methylsulfate 3 MG/3 ML SYRINGE ONE (17:07)
--- NOTE | 2016-07-09 17:14 | Operative Note ---
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 After adequate sedation anesthesia that was prepped and draped. Midline incision was made by approximately 15 cm. Dissection is carried down to the linea Jenna and the abdomen was entered. Palpation right lower quadrant revealed a mass that incorporated several loops of small bowel as well as the mesentery. Once this area was brought into view it was apparent that this was in the terminal ileum. This area was skeletonized the ileum was transected with the JELENA 75 mm stapler. Then the right colon was delivered in the field after the white line of T[place]t was taken down with blunt dissection electrocautery. The transverse colon was transected with a JELENA 75 mm stapler. The ileum and transverse colon were anastomosed in a side to side functional end in fashion with a JELENA 75 mm stapler followed by a TA 60 stapler. The anastomosis was oversewn with 2 individual 3-0 silk sutures. All the mesentery was secured with Izabella clamps and 0 silk suture proximally and distally. The abdomen was palpated and there are multiple stones identified throughout the mesenteric peritoneal surface. I did not palpate any lesions in the right or left lobe of the liver. Stomach appeared to be normal. The spleen appeared to be normal. The abdomen was closed with loop PDS suture. Skin was closed cuong.
[2016-07-09] MEDS ORDERED: *HR* HYDROmorphone 2 MG/ML SYRINGE ONE ×2 (17:23→17:45)
[2016-07-09] MEDS: *HR* Labetalol 100 MG/20 ML MDV IVP PRN ×2 (17:48→17:58)
[2016-07-09] MEDS ORDERED: CloNIDine Patch 0.1 MG PATCH (WEEKLY) TD STA (18:20)
[2016-07-09] MEDS ORDERED: Ketorolac 30 MG/ML VIAL IVP ONE (18:48)
--- NOTE | 2016-07-09 19:08 | Anesthesia Evaluation Post Op ---
Date of Encounter: 07/09/16 Time of Encounter: 19:06 - Vital Signs Vital Signs: Vital Signs Temp Pulse Resp BP Pulse Ox 07/09/16 18:57 97.9 F 62 13 116/52 96 07/09/16 18:47 63 16 118/65 98 07/09/16 18:37 62 20 150/66 97 07/09/16 18:27 97.7 F 63 18 153/84 97 07/09/16 18:17 60 10 176/79 98 07/09/16 18:07 60 10 185/93 99 07/09/16 17:57 97.9 F 66 12 182/110 97 07/09/16 17:47 71 20 188/99 96 07/09/16 17:37 69 20 180/112 99 07/09/16 17:27 98.6 F 64 20 162/87 100 07/09/16 11:25 98.3 F 74 16 142/73 96 07/09/16 08:04 77 16 114/72 96 07/09/16 06:56 98.4 F 98 16 101/63 96 07/09/16 04:00 98.2 F 71 18 121/74 97 07/09/16 00:00 98.1 F 66 16 124/74 97 07/08/16 20:00 98.7 F 68 18 129/72 96 07/08/16 19:44 71 132/69 Intake and Output 07/09/16 07/09/16 07/09/16 07:59 15:59 23:59 Intake Total 1000 / 1000 0 / 0 Balance 1000 / 1000 0 / 0 Intake: IV Fluids 1000 / 1000 0.9 % Sodium Chloride 1, 1000 / 1000 000 ML @ 100 mls/hr IVC . Q10H [facility] Rx#:[id number] Oral 0 / 0 0 / 0 Other: Meal NPO Percent of Meal Consumed 0% # Voids 1 Blood Glucose* 82 - Lungs Lungs: Clear Ascult./Percussion - Airway Airway: Non-obstructed - Cardiovascular Regular Rate - Mental Status Mental Status: Alert & Oriented, Answers Appropriately - Pain Pain Scale: 8 (sleeping but) Pain Scale used: Numeric (1 - 10) - Nausea Vomiting Nausea Vomiting: Not Present - Hydration Hydration: NPO, Espinal catheter - Discharge PostOp Status: Discharge Patient to home Anes Supervising Prov Stmt: Pt seen/evaluated, VSS and pt has met criteria for discharge to floor. Johnny Leung MD
[2016-07-09] MEDS ORDERED: Naloxone 0.4 MG/ML INJ IVP PRN (19:34)
[2016-07-09] MEDS ORDERED: Ondansetron 4 MG/2 ML VIAL IVP PRN (19:34)
[2016-07-10] MEDS: *HR* Heparin 5,000 UNIT/ML VIAL SQ SCH ×4 (00:40→23:51)
[2016-07-10] MEDS: *HR* HYDROmorphone (PF) 1 MG/ML SYRINGE IVP PRN ×4 (01:18→12:07)
[2016-07-10 05:12] LABS: Basophils % 0.2 %; Hematocrit 37.3 % (37.5-50.1); Hemoglobin 11.7 g/dL (12.9-16.9); Immature Granulocytes % 0.4 % (0-4); Lymphocytes # 0.4 K/mcL (0.6-4.6); Lymphocytes % 1.8 %; Mean Corpuscular HGB Conc 31.4 g/dL (31.6-35.5); Mean Corpuscular Hemoglobin 28.3 pg (28.0-33.3); Mean Corpuscular Volume 90.1 fL (83.0-100.0); Mean Platelet Volume 10.9 fL (9.4-12.4); Monocytes # 1.1 K/mcL (0.0-1.3); Monocytes % 5.2 %; Neutrophils # 19.6 K/mcL (1.6-8.9); Platelet Count 222 K/mcL (140-400); Red Blood Count 4.14 M/mcL (4.19-5.50); Segmented Neutrophils % 92.4 %
[2016-07-10 05:27] LABS: BUN/Creatinine Ratio 13 (6-26); Blood Urea Nitrogen 16 mg/dL (8-26); Calcium 8.3 mg/dL (8.6-10.8); Carbon Dioxide 17 mEq/L (19-29); Chloride 110 mEq/L (98-109); Glucose 124 mg/dL (70-99); Magnesium 1.7 mg/dL (1.6-2.6); Osmolality,Calculated 291 (280-300); Potassium 4.3 mEq/L (3.5-4.5); Sodium 139 mEq/L (136-145); eGFR For African Americans > 60 (> 60); eGFR For Non-African Americans 55 (> 60)
[2016-07-10] MEDS: *HR* Metoprolol 5 MG/5 ML VIAL IVP SCH ×2 (07:47→21:16)
[2016-07-10] MEDS: Pantoprazole 40 MG VIAL IVP SCH (07:47)
[2016-07-10] MEDS ORDERED: Lisinopril 20 MG TABLET PO SCH (09:00)
[2016-07-10] MEDS ORDERED: Chloraseptic Spray 177 ML BOTTLE MM PRN (09:41)
--- NOTE | 2016-07-10 09:45 | Internal Med Progress Note ---
Date of Encounter: 07/10/16 Time of Encounter: 09:43 - Assessment and plan (1) Abdominal mass, RLQ (right lower quadrant) Current Visit: Yes Status: Acute Assessment and plan: Surgery is on board. s/p expl. laparotomy with resection of the mass with anastomosis of small bowel to transverse colon NG to suction for now Diet when okay per surgery (2) Small bowel obstruction Current Visit: Yes Status: Acute Assessment and plan: NG suction now Diet when okay per surgery (3) Abdominal aortic aneurysm Current Visit: No Status: Chronic Assessment and plan: Out pt. follow up Qualifiers: Presence of rupture: without rupture Qualified Code(s): I71.4 - Abdominal aortic aneurysm, without rupture (4) Chronic kidney disease, stage 3 Current Visit: Yes Status: Chronic Assessment and plan: Pt. has [place] on CKD-3 today Continue IV fluids Avoid nephrotoxic agents and hypotension (5) Hypertension Current Visit: Yes Status: Chronic Assessment and plan: Controlled. Hold ACEI/ARB due to [place] Qualifiers: Hypertension type: essential hypertension Qualified Code(s): I10 - Essential (primary) hypertension - Subjective Interval history: Patient had surgery yesterday. States he has 5/10 pain in his abdomen but the pain medications are helping him. He is complaining of pain in his throat. No N/ V. No SOB or cough or CP. - Constitutional Vitals: Temp Pulse Resp BP Pulse Ox 98.3 F 83 16 137/74 97 07/10/16 07:58 07/10/16 07:58 07/10/16 07:58 07/10/16 07:58 07/10/16 07:59 General appearance: Present: cooperative, A&O X 3, no acute distress, answers questions appropriately Exam: Gen.: Lying in bed. No acute distress. NG tube in place connected to suction. Chest: Clear to auscultation bilaterally. No adventitious sounds present. CVS: First and second heart sounds present. No murmurs, rubs or gallops. Abdomen: Soft, Midline dressing present. Internal Medicine: Result - Labs CBC & Chem 7: 07/10/16 04:34 07/10/16 04:34 Labs: Short CBC 07/10/16 Range/Units 04:34 WBC 21.2 H D (4.3-11.1) K/mcL Hgb 11.7 L (12.9-16.9) g/dL Hct 37.3 L (37.5-50.1) % Plt Count 222 (140-400) K/mcL Neutrophils # 19.6 H (1.6-8.9) K/mcL BMP 07/10/16 04:34 Sodium 139 Potassium 4.3 Chloride 110 H Carbon Dioxide 17 L BUN 16 Creatinine 1.26 H Glucose 124 H Calcium 8.3 L - Diagnostic Studies Other Images Additional comments: ECHO - 60% EF - VTE Documentation of Mechanical Device: Intermittent pneumatic compression device Consult Discharge Plan - Plan Referrals: Tamera Portillo, SENIOR JAVA ENGINEER [Primary Care Provider] -
--- NOTE | 2016-07-10 10:02 | General Surgery Progress Note ---
<Joie Austin - Last Filed: 07/10/16 10:00> Date of Encounter: 07/10/16 Time of Encounter: 10:00 - Assessment and Plan (1) Abdominal mass, RLQ (right lower quadrant) Current Visit: Yes Status: Acute POD #1 exploratory laparotomy with small bowel resection/Right colectomy NPO, may have ice chips IVF pain control supportive care (2) Small bowel obstruction Current Visit: Yes Status: Resolved due to mass in RLQ - removed in surgery 07/08/2016 (3) Coronary artery disease Current Visit: No Status: Chronic nothing by mouth at this point in time Home meds include aspirin, Plavix, lisinopril, carvedilol, amlodipine, and pravastatin. Qualifiers: Coronary Disease-Associated Artery/Lesion type: [place] artery [place] vs. transplanted heart: [place] heart Associated angina: angina presence unspecified Qualified Code(s): I25.10 - Atherosclerotic heart disease of [place] coronary artery without angina pectoris (4) Hypertension Current Visit: Yes Status: Chronic nothing by mouth at this point in time Home meds include aspirin, Plavix, lisinopril, carvedilol, amlodipine, and pravastatin. Management by medicine team Qualifiers: Hypertension type: essential hypertension Qualified Code(s): I10 - Essential (primary) hypertension (5) DVT prophylaxis Current Visit: Yes Status: Acute subcutaneous heparin 5,000 units for DVT prophylaxis Subjective Patient reports: no flatus, no bowel movement, afebrile, other (patient was straight cathed this AM due to inability to void and bladder scan showing 655) Objective Vital Signs - Last 8 Hours Temp Pulse Resp BP Pulse Ox 07/10/16 07:59 97 07/10/16 07:58 98.3 F 83 16 137/74 96 07/10/16 03:36 98.0 F 81 14 135/75 97 Intake and Output 07/09/16 07/10/16 07/10/16 23:59 07:59 15:59 Output Total 800 / 800 Balance -800 / -800 Output: Urine 0 / 0 Straight Cath 800 / 800 Other: Blood Glucose* 125 - General physical appearance well developed, well nourished, no distress - Eyes PERRL, normal ocular movement - ENT normal pinna, normal nares, normal mucosa - Neck Neck exam: trachea midline - Respiratory normal respiratory effort, clear to auscultation - Cardiovascular Cardiovascular exam: Present: RRR - Abdomen Abdomen: Present: bowel sounds present, soft, tender (expected post-op) - Integumentary no rash - Neurologic CN 2-12 grossly intact - Psychiatric oriented to time, oriented to person, oriented to place, speech is normal - Labs 07/10/16 04:34 07/10/16 04:34 Diabetes panel 07/10/16 Range/Units 04:34 Sodium 139 (136-145) mEq/L Potassium 4.3 (3.5-4.5) mEq/L Chloride 110 H (98-109) mEq/L Carbon Dioxide 17 L (19-29) mEq/L BUN 16 (8-26) mg/dL Creatinine 1.26 H (0.72-1.25) mg/dL Glucose 124 H (70-99) mg/dL Calcium 8.3 L (8.6-10.8) mg/dL Calcium panel 07/10/16 Range/Units 04:34 Calcium 8.3 L (8.6-10.8) mg/dL Pituitary panel 07/10/16 Range/Units 04:34 Sodium 139 (136-145) mEq/L Potassium 4.3 (3.5-4.5) mEq/L Chloride 110 H (98-109) mEq/L Carbon Dioxide 17 L (19-29) mEq/L BUN 16 (8-26) mg/dL Creatinine 1.26 H (0.72-1.25) mg/dL Glucose 124 H (70-99) mg/dL Calcium 8.3 L (8.6-10.8) mg/dL Adrenal panel 07/10/16 Range/Units 04:34 Sodium 139 (136-145) mEq/L Potassium 4.3 (3.5-4.5) mEq/L Chloride 110 H (98-109) mEq/L Carbon Dioxide 17 L (19-29) mEq/L BUN 16 (8-26) mg/dL Creatinine 1.26 H (0.72-1.25) mg/dL Glucose 124 H (70-99) mg/dL Calcium 8.3 L (8.6-10.8) mg/dL - VTE Documentation of Mechanical Device: Intermittent pneumatic compression device Consult Discharge Plan - Plan Referrals: Tamera Portillo, FINE CHEMICALS OPERATOR [Primary Care Provider] - <Karolyn Vang - Last Filed: 07/10/16 13:39> Time of Encounter: 11:00 - Assessment and Plan (1) S/P right colectomy Current Visit: Yes Status: Acute continue npo, ngt decompression, no bowel sounds ok ice chips OOB to chair was straight cathed overnight, may need delvalle if cannot urinate will start OPEN HEARTH WORKER for pain control gi/dvt prophylaxis (2) Carcinomatosis Current Visit: Yes Status: Acute (3) Leukocytosis Current Visit: Yes Status: Acute likely due to surgery, no bandemia, no tacchycardia, will follow Qualifiers: Leukocytosis type: unspecified Qualified Code(s): D72.829 - Elevated white blood cell count, unspecified (4) Abdominal mass, RLQ (right lower quadrant) Current Visit: Yes Status: Acute (5) DVT prophylaxis Current Visit: Yes Status: Acute (6) Chronic kidney disease, stage 3 Current Visit: Yes Status: Chronic (7) Hypertension Current Visit: Yes Status: Chronic normotensive, will monitor Qualifiers: Hypertension type: essential hypertension Qualified Code(s): I10 - Essential (primary) hypertension (8) Urinary retention Current Visit: Yes Status: Acute place delvalle Subjective Narrative: complaining his pain isnt controlled no flatus or bm has been OOB to chair already Objective Vital Signs - Last 8 Hours Temp Pulse Resp BP Pulse Ox 07/10/16 11:33 98.7 F 76 17 135/70 96 07/10/16 07:59 97 07/10/16 07:58 98.3 F 83 16 137/74 96 Intake and Output 07/09/16 07/10/16 07/10/16 23:59 07:59 15:59 Intake Total 500 / 500 Output Total 800 / 800 0 / 0 Balance -800 / -800 500 / 500 Intake: IV Fluids 500 / 500 0.9 % Sodium Chloride 1, 500 / 500 000 ML @ 100 mls/hr IVC . Q10H [facility] Rx#:[id number] Output: Urine 0 / 0 0 / 0 Straight Cath 800 / 800 Other: Blood Glucose* 125 121 - General physical appearance well developed, well nourished, moderate distress - Eyes PERRL, normal ocular movement - ENT dry mucosa, atraumatic, normocephalic - Neck Neck exam: trachea midline - Respiratory normal expansion, clear to auscultation - Cardiovascular Cardiovascular exam: Present: RRR - Abdomen Abdomen: Present: soft, tender. Absent: bowel sounds present - Integumentary no rash, no growths - Neurologic CN 2-12 grossly intact - Musculoskeletal normal posture - Psychiatric oriented to time, oriented to person, oriented to place, speech is normal, memory intact - Labs 07/10/16 04:34 07/10/16 04:34 Vital Signs Temp Pulse Resp BP Pulse Ox 07/10/16 11:33 98.7 F 76 17 135/70 96 07/10/16 07:59 97 07/10/16 07:58 98.3 F 83 16 137/74 96 07/10/16 03:36 98.0 F 81 14 135/75 97 07/09/16 22:45 97.9 F 73 12 151/83 94 L 07/09/16 21:45 97.9 F 64 14 158/74 98 07/09/16 20:45 97.8 F 71 12 153/83 97 07/09/16 20:15 97.7 F 73 14 136/74 97 07/09/16 19:45 98.4 F 69 12 127/72 97 07/09/16 19:12 98.2 F 64 14 118/59 95 07/09/16 18:57 97.9 F 62 13 116/52 96 07/09/16 18:47 63 16 118/65 98 07/09/16 18:37 62 20 150/66 97 07/09/16 18:27 97.7 F 63 18 153/84 97 07/09/16 18:17 60 10 176/79 98 07/09/16 18:07 60 10 185/93 99 07/09/16 17:57 97.9 F 66 12 182/110 97 07/09/16 17:47 71 20 188/99 96 07/09/16 17:37 69 20 180/112 99 07/09/16 17:27 98.6 F 64 20 162/87 100 Intake and Output 07/09/16 07/10/16 07/10/16 23:59 07:59 15:59 Intake Total 500 / 500 Output Total 800 / 800 0 / 0 Balance -800 / -800 500 / 500 Intake: IV Fluids 500 / 500 0.9 % Sodium Chloride 1, 500 / 500 000 ML @ 100 mls/hr IVC . Q10H [facility] Rx#:[id number] Output: Urine 0 / 0 0 / 0 Straight Cath 800 / 800 Other: Blood Glucose* 125 121 All Lab Results (24 Hours) 07/10/16 07/10/16 07/10/16 Range/Units 00:47 04:34 04:34 WBC 21.2 H D (4.3-11.1) K/mcL RBC 4.14 L (4.19-5.50) M/mcL Hgb 11.7 L (12.9-16.9) g/dL Hct 37.3 L (37.5-50.1) % MCV 90.1 (83.0-100.0) fL MCH 28.3 (28.0-33.3) pg MCHC 31.4 L (31.6-35.5) g/dL RDW 13.0 (11.5-14.5) % Plt Count 222 (140-400) K/mcL MPV 10.9 (9.4-12.4) fL Immature Gran % 0.4 (0-4) % Seg Neutrophils % 92.4 % Lymphocytes % 1.8 % Monocytes % 5.2 % Eosinophils % 0.0 % Basophils % 0.2 % Neutrophils # 19.6 H (1.6-8.9) K/mcL Lymphocytes # 0.4 L (0.6-4.6) K/mcL Monocytes # 1.1 (0.0-1.3) K/mcL Eosinophils # 0.0 (0.0-0.6) K/mcL Basophils # 0.0 (0.0-0.2) K/mcL Sodium 139 (136-145) mEq/L Potassium 4.3 (3.5-4.5) mEq/L Chloride 110 H (98-109) mEq/L Carbon Dioxide 17 L (19-29) mEq/L BUN 16 (8-26) mg/dL Creatinine 1.26 H (0.72-1.25) mg/dL Est GFR ( Amer) > 60 (> 60) Est GFR (Non-Af Amer) 55 L (> 60) BUN/Creatinine Ratio 13 (6-26) Glucose 124 H (70-99) mg/dL POC Glucose 110 H (58-89) Calculated Osmolality 291 (280-300) Calcium 8.3 L (8.6-10.8) mg/dL Magnesium 1.7 (1.6-2.6) mg/dL 07/10/16 07/10/16 Range/Units 05:12 11:31 WBC (4.3-11.1) K/mcL RBC (4.19-5.50) M/mcL Hgb (12.9-16.9) g/dL Hct (37.5-50.1) % MCV (83.0-100.0) fL MCH (28.0-33.3) pg MCHC (31.6-35.5) g/dL RDW (11.5-14.5) % Plt Count (140-400) K/mcL MPV (9.4-12.4) fL Immature Gran % (0-4) % Seg Neutrophils % % Lymphocytes % % Monocytes % % Eosinophils % % Basophils % % Neutrophils # (1.6-8.9) K/mcL Lymphocytes # (0.6-4.6) K/mcL Monocytes # (0.0-1.3) K/mcL Eosinophils # (0.0-0.6) K/mcL Basophils # (0.0-0.2) K/mcL Sodium (136-145) mEq/L Potassium (3.5-4.5) mEq/L Chloride (98-109) mEq/L Carbon Dioxide (19-29) mEq/L BUN (8-26) mg/dL Creatinine (0.72-1.25) mg/dL Est GFR ( Amer) (> 60) Est GFR (Non-Af Amer) (> 60) BUN/Creatinine Ratio (6-26) Glucose (70-99) mg/dL POC Glucose 125 H 121 H (58-89) Calculated Osmolality (280-300) Calcium (8.6-10.8) mg/dL Magnesium (1.6-2.6) mg/dL
[2016-07-10] MEDS: *HR* HYDROmorphone 20 MG/20 ML PCA IVC PRN (13:56)
[2016-07-10] MEDS: 0.9 % Sodium Chloride 1,000 ML IVC SCH (15:23)
[2016-07-11] MEDS: 0.9 % Sodium Chloride 1,000 ML IVC SCH ×6 (02:21→23:48)
[2016-07-11 03:54] LABS: Basophils % 0.2 %; Eosinophils % 0.2 %; Hematocrit 33.1 % (37.5-50.1); Hemoglobin 10.5 g/dL (12.9-16.9); Immature Granulocytes % 0.6 % (0-4); Lymphocytes # 0.7 K/mcL (0.6-4.6); Lymphocytes % 5.3 %; Mean Corpuscular HGB Conc 31.7 g/dL (31.6-35.5); Mean Corpuscular Hemoglobin 28.1 pg (28.0-33.3); Mean Corpuscular Volume 88.5 fL (83.0-100.0); Mean Platelet Volume 11.8 fL (9.4-12.4); Monocytes # 1.2 K/mcL (0.0-1.3); Monocytes % 9.3 %; Platelet Count 155 K/mcL (140-400); Red Blood Count 3.74 M/mcL (4.19-5.50); Red Cell Distribution Width 13.2 % (11.5-14.5); Segmented Neutrophils % 84.4 %
[2016-07-11 04:09] LABS: BUN/Creatinine Ratio 17 (6-26); Blood Urea Nitrogen 18 mg/dL (8-26); Carbon Dioxide 20 mEq/L (19-29); Chloride 113 mEq/L (98-109); Glucose 95 mg/dL (70-99); Magnesium 2.3 mg/dL (1.6-2.6); Osmolality,Calculated 296 (280-300); Sodium 142 mEq/L (136-145); eGFR For African Americans > 60 (> 60); eGFR For Non-African Americans > 60 (> 60)
[2016-07-11 04:12] LABS: Potassium 4.6 mEq/L (3.5-4.5)
[2016-07-11 05:40] LABS: Platelet Estimate Normal (Normal)
[2016-07-11] MEDS: Pantoprazole 40 MG VIAL IVP SCH (07:22)
[2016-07-11] MEDS: *HR* Heparin 5,000 UNIT/ML VIAL SQ SCH ×2 (07:22→16:12)
[2016-07-11] MEDS: *HR* Metoprolol 5 MG/5 ML VIAL IVP SCH ×3 (07:22→19:53)
--- NOTE | 2016-07-11 07:30 | General Surgery Progress Note ---
<Joie Austin - Last Filed: 07/11/16 07:27> Date of Encounter: 07/11/16 Time of Encounter: 07:28 - Assessment and Plan (1) Abdominal mass, RLQ (right lower quadrant) Current Visit: Yes Status: Acute POD #2 exploratory laparotomy with small bowel resection/Right colectomy NPO, may have ice chips IVF pain control supportive care (2) Small bowel obstruction Current Visit: Yes Status: Resolved due to mass in RLQ - removed in surgery 07/08/2016 (3) Coronary artery disease Current Visit: No Status: Chronic nothing by mouth at this point in time Home meds include aspirin, Plavix, lisinopril, carvedilol, amlodipine, and pravastatin. Qualifiers: Coronary Disease-Associated Artery/Lesion type: [place] artery [place] vs. transplanted heart: [place] heart Associated angina: angina presence unspecified Qualified Code(s): I25.10 - Atherosclerotic heart disease of [place] coronary artery without angina pectoris (4) Hypertension Current Visit: Yes Status: Chronic nothing by mouth at this point in time Home meds include aspirin, Plavix, lisinopril, carvedilol, amlodipine, and pravastatin. Management by medicine team lopressor 2.5 mg IV q12 Qualifiers: Hypertension type: essential hypertension Qualified Code(s): I10 - Essential (primary) hypertension (5) DVT prophylaxis Current Visit: Yes Status: Acute subcutaneous heparin 5,000 units for DVT prophylaxis Subjective Patient reports: feels better, pain is less, flatus, no bowel movement, afebrile , other (delvalle was placed yesterday evening due to patient inability to void; he was straight cathed in the AM and had no urine in 8 hrs) Objective Vital Signs - Last 8 Hours Temp Pulse Resp BP Pulse Ox 07/11/16 04:41 98.3 F 101 18 158/83 91 L 07/10/16 23:52 99.8 F H 91 16 160/83 95 Intake and Output 07/10/16 07/10/16 07/11/16 15:59 23:59 07:59 Intake Total 1000 / 1000 196 / 196 1254 / 1254 Output Total 300 / 300 800 / 800 500 / 500 Balance 700 / 700 -604 / -604 754 / 754 Intake: IV Fluids 1000 / 1000 196 / 196 1254 / 1254 0.9 % Sodium Chloride 1, 1000 / 1000 1254 / 1254 000 ML @ 100 mls/hr IVC . Q10H [facility] Rx#:[id number] Oral 0 / 0 0 / 0 Output: Urine 300 / 300 Urethral (Delvalle) 300 / 300 Catheter 400 / 400 500 / 500 Gastric Drainage 400 / 400 0 / 0 Other: Blood Glucose* 121 105 85 - General physical appearance well developed, well nourished, no distress - Eyes PERRL, normal ocular movement - ENT atraumatic, normocephalic - Neck Neck exam: trachea midline - Respiratory normal respiratory effort, clear to auscultation - Cardiovascular Cardiovascular exam: Present: RRR - Abdomen Abdomen: Present: bowel sounds present, soft, tender (mild, diffuse) - Incision Incision: Present: clean and dry, intact - Genitourinary other (delvalle catheter (uop 500 ml since midnight)) - Labs 07/11/16 03:36 07/11/16 03:36 Diabetes panel 07/11/16 Range/Units 03:36 Sodium 142 (136-145) mEq/L Potassium 4.6 H (3.5-4.5) mEq/L Chloride 113 H (98-109) mEq/L Carbon Dioxide 20 (19-29) mEq/L BUN 18 (8-26) mg/dL Creatinine 1.09 (0.72-1.25) mg/dL Glucose 95 (70-99) mg/dL Calcium 8.0 L (8.6-10.8) mg/dL Calcium panel 07/11/16 Range/Units 03:36 Calcium 8.0 L (8.6-10.8) mg/dL Pituitary panel 07/11/16 Range/Units 03:36 Sodium 142 (136-145) mEq/L Potassium 4.6 H (3.5-4.5) mEq/L Chloride 113 H (98-109) mEq/L Carbon Dioxide 20 (19-29) mEq/L BUN 18 (8-26) mg/dL Creatinine 1.09 (0.72-1.25) mg/dL Glucose 95 (70-99) mg/dL Calcium 8.0 L (8.6-10.8) mg/dL Adrenal panel 07/11/16 Range/Units 03:36 Sodium 142 (136-145) mEq/L Potassium 4.6 H (3.5-4.5) mEq/L Chloride 113 H (98-109) mEq/L Carbon Dioxide 20 (19-29) mEq/L BUN 18 (8-26) mg/dL Creatinine 1.09 (0.72-1.25) mg/dL Glucose 95 (70-99) mg/dL Calcium 8.0 L (8.6-10.8) mg/dL - VTE Documentation of Mechanical Device: Intermittent pneumatic compression device Consult Discharge Plan - Plan Referrals: Tamera Portillo, THIRD GRADE TEACHER [Primary Care Provider] - <Karolyn Vang - Last Filed: 07/11/16 10:43> - Assessment and Plan (1) S/P right colectomy Current Visit: Yes Status: Acute patient currently w/o any bowel sounds, no flatus ok ice chips and popcicles OOB to chair, ok to clamp ngt to walk in halls (2) Carcinomatosis Current Visit: Yes Status: Acute pathology pending (3) Leukocytosis Current Visit: Yes Status: Acute significantly improved overnight, continue to monitor most likely secondary to surgery Qualifiers: Leukocytosis type: unspecified Qualified Code(s): D72.829 - Elevated white blood cell count, unspecified (4) Abdominal mass, RLQ (right lower quadrant) Current Visit: Yes Status: Acute (5) DVT prophylaxis Current Visit: Yes Status: Acute (6) Chronic kidney disease, stage 3 Current Visit: Yes Status: Chronic (7) Hypertension Current Visit: Yes Status: Chronic BP's a little elevated, will change lopressor to 5 mg IV q 12 Qualifiers: Hypertension type: essential hypertension Qualified Code(s): I10 - Essential (primary) hypertension (8) Urinary retention Current Visit: Yes Status: Acute continue delvalle, once taking po intake will start flomax Subjective Narrative: pain better controlled on cnc manager denies nausea except for yday no flatus or bm was oob into chair yday per patient, states would like to walk Objective Vital Signs - Last 8 Hours Temp Pulse Resp BP Pulse Ox 07/11/16 10:12 98.5 F 88 15 155/81 93 L 07/11/16 08:06 98.9 F 86 16 156/69 93 L 07/11/16 04:41 98.3 F 101 18 158/83 91 L Intake and Output 07/10/16 07/11/16 07/11/16 23:59 07:59 15:59 Intake Total 1254 / 1254 Output Total 800 / 800 1000 / 1000 450 / 450 Balance -604 / -604 254 / 254 -450 / -450 Intake: IV Fluids 1254 / 1254 0.9 % Sodium Chloride 1, 1254 / 1254 000 ML @ 100 mls/hr IVC . Q10H [facility] Rx#:[id number] Oral 0 / 0 0 / 0 Output: Catheter 400 / 400 500 / 500 450 / 450 Gastric Drainage 400 / 400 500 / 500 Right Nare 500 / 500 Other: Meal NPO for Breakfast Blood Glucose* 105 85 - General physical appearance well developed, well nourished, no distress - Eyes PERRL, normal ocular movement - ENT dry mucosa, atraumatic, normocephalic - Neck Neck exam: trachea midline - Respiratory normal expansion, clear to auscultation - Cardiovascular Cardiovascular exam: Present: RRR, no murmurs/rubs/gallops - Abdomen Abdomen: Present: soft, tender (appropriate postop tenderness, incision C/D/I). Absent: bowel sounds present - Genitourinary other - Integumentary no rash, no growths - Neurologic CN 2-12 grossly intact - Musculoskeletal normal posture - Psychiatric oriented to time, oriented to person, memory intact - Labs 07/11/16 03:36 07/11/16 03:36 All Lab Results (24 Hours) 07/10/16 07/10/16 07/10/16 Range/Units 11:31 17:19 23:50 WBC (4.3-11.1) K/mcL RBC (4.19-5.50) M/mcL Hgb (12.9-16.9) g/dL Hct (37.5-50.1) % MCV (83.0-100.0) fL MCH (28.0-33.3) pg MCHC (31.6-35.5) g/dL RDW (11.5-14.5) % Plt Count (140-400) K/mcL MPV (9.4-12.4) fL Immature Gran % (0-4) % Seg Neutrophils % % Lymphocytes % % Monocytes % % Eosinophils % % Basophils % % Neutrophils # (1.6-8.9) K/mcL Lymphocytes # (0.6-4.6) K/mcL Monocytes # (0.0-1.3) K/mcL Eosinophils # (0.0-0.6) K/mcL Basophils # (0.0-0.2) K/mcL Platelet Estimate (Normal) Sodium (136-145) mEq/L Potassium (3.5-4.5) mEq/L Chloride (98-109) mEq/L Carbon Dioxide (19-29) mEq/L BUN (8-26) mg/dL Creatinine (0.72-1.25) mg/dL Est GFR ( Amer) (> 60) Est GFR (Non-Af Amer) (> 60) BUN/Creatinine Ratio (6-26) Glucose (70-99) mg/dL POC Glucose 121 H 114 H 105 H (58-89) Calculated Osmolality (280-300) Calcium (8.6-10.8) mg/dL Magnesium (1.6-2.6) mg/dL 07/11/16 07/11/16 07/11/16 Range/Units 03:36 03:36 05:29 WBC 13.1 H (4.3-11.1) K/mcL RBC 3.74 L (4.19-5.50) M/mcL Hgb 10.5 L (12.9-16.9) g/dL Hct 33.1 L (37.5-50.1) % MCV 88.5 (83.0-100.0) fL MCH 28.1 (28.0-33.3) pg MCHC 31.7 (31.6-35.5) g/dL RDW 13.2 (11.5-14.5) % Plt Count 155 (140-400) K/mcL MPV 11.8 (9.4-12.4) fL Immature Gran % 0.6 (0-4) % Seg Neutrophils % 84.4 % Lymphocytes % 5.3 % Monocytes % 9.3 % Eosinophils % 0.2 % Basophils % 0.2 % Neutrophils # 11.0 H (1.6-8.9) K/mcL Lymphocytes # 0.7 (0.6-4.6) K/mcL Monocytes # 1.2 (0.0-1.3) K/mcL Eosinophils # 0.0 (0.0-0.6) K/mcL Basophils # 0.0 (0.0-0.2) K/mcL Platelet Estimate Normal (Normal) Sodium 142 (136-145) mEq/L Potassium 4.6 H (3.5-4.5) mEq/L Chloride 113 H (98-109) mEq/L Carbon Dioxide 20 (19-29) mEq/L BUN 18 (8-26) mg/dL Creatinine 1.09 (0.72-1.25) mg/dL Est GFR ( Amer) > 60 (> 60) Est GFR (Non-Af Amer) > 60 (> 60) BUN/Creatinine Ratio 17 (6-26) Glucose 95 (70-99) mg/dL POC Glucose 85 (58-89) Calculated Osmolality 296 (280-300) Calcium 8.0 L (8.6-10.8) mg/dL Magnesium 2.3 (1.6-2.6) mg/dL Vital Signs Temp Pulse Resp BP Pulse Ox 07/11/16 10:12 98.5 F 88 15 155/81 93 L 07/11/16 08:06 98.9 F 86 16 156/69 93 L 07/11/16 04:41 98.3 F 101 18 158/83 91 L 07/10/16 23:52 99.8 F H 91 16 160/83 95 07/10/16 20:56 99.5 F 88 18 122/70 94 L 07/10/16 16:22 99.2 F 91 16 127/71 92 L 07/10/16 11:33 98.7 F 76 17 135/70 96 Intake and Output 07/10/16 07/11/16 07/11/16 23:59 07:59 15:59 Intake Total 1254 / 1254 Output Total 800 / 800 1000 / 1000 450 / 450 Balance -604 / -604 254 / 254 -450 / -450 Intake: IV Fluids 1254 / 1254 0.9 % Sodium Chloride 1 1254 / 1254 000 ML @ 100 mls/hr IVC . Q10H [facility] Rx#:[id number] Oral 0 / 0 0 / 0 Output: Catheter 400 / 400 500 / 500 450 / 450 Gastric Drainage 400 / 400 500 / 500 Right Nare 500 / 500 Other: Meal NPO for Breakfast Blood Glucose* 105 85 - Attending Attestation I examined this patient and my medical decision-making was reviewed with the DRAWBRIDGE TENDER/PA/Advanced Practice Nurse/Resident Physician. I agree with the documented findings, disposition and treatment plan as described except to the extent set forth below.
--- NOTE | 2016-07-11 14:16 | Internal Med Progress Note ---
Date of Encounter: 07/11/16 Time of Encounter: 09:00 - Assessment and plan (1) Abdominal mass, RLQ (right lower quadrant) Current Visit: Yes Status: Acute Assessment and plan: Surgery is on board. s/p expl. laparotomy with resection of the mass with anastomosis of small bowel to transverse colon NG to suction for now Diet when okay per surgery (2) Chronic kidney disease, stage 3 Current Visit: Yes Status: Chronic Assessment and plan: Pt. has [place] on CKD-3 Continue IV fluids Avoid nephrotoxic agents and hypotension Renal function improved (3) Hypertension Current Visit: Yes Status: Chronic Assessment and plan: Controlled. Hold ACEI/ARB due to [place] Qualifiers: Hypertension type: essential hypertension Qualified Code(s): I10 - Essential (primary) hypertension (4) Small bowel obstruction Current Visit: Yes Status: Resolved Assessment and plan: S/P surgery. NG suction now Diet when okay per surgery (5) Abdominal aortic aneurysm Current Visit: No Status: Chronic Assessment and plan: Out pt. follow up Qualifiers: Presence of rupture: without rupture Qualified Code(s): I71.4 - Abdominal aortic aneurysm, without rupture (6) Coronary artery disease Current Visit: No Status: Chronic Assessment and plan: hx of CAD. s/p PCi with 3 stents. Denies CP. Plavix and aspirin with held due to surgery. Will resume home medication when diet is started. Qualifiers: Coronary Disease-Associated Artery/Lesion type: [place] artery [place] vs. transplanted heart: [place] heart Associated angina: angina presence unspecified Qualified Code(s): I25.10 - Atherosclerotic heart disease of [place] coronary artery without angina pectoris (7) DVT prophylaxis Current Visit: Yes Status: Acute Assessment and plan: Heparin SQ - Subjective Interval history: Patient is a 81-year-old male admitted for abdominal mass and a partial small bowel obstruction. His past medical history is significant for cardiomyopathy, CAD, hypertension. Patient had the surgery on July 09, 2016. Patient was seen and examined. He is awake alert, oriented 3. No fever. Vitals are stable. Surgical follow-up appreciated. Recommendation will be followed. - Constitutional Vitals: Temp Pulse Resp BP Pulse Ox 98.5 F 88 15 155/81 93 L 07/11/16 10:12 07/11/16 10:12 07/11/16 10:12 07/11/16 10:12 07/11/16 10:12 General appearance: Present: cooperative, A&O X 3, no acute distress, answers questions appropriately - Head Head exam: Present: atraumatic, normocephalic - Eye Eye exam: Present: PERRL, conjuntiva pink, sclera anicteric Pupils: Present: PERRL - Neck Neck exam general surgery: Present: supple, trachea midline. Absent: lymphadenopathy - Respiratory Respiratory exam: Present: CTAB. Absent: accessory muscle use, rales, rhonchi, wheezes - Cardiovascular Cardiovascular exam: Present: RRR, +S1, +S2. Absent: diastolic murmur, gallop, rubs, systolic murmur - GI/Abdominal GI/Abdominal exam: Present: normal bowel sounds, soft, no peritoneal signs. Absent: distended, tenderness Additional comments: Abdominal incision is well-dressed, without infiltrate - Extremities Exam Extremities exam: Present: warm, radial pulses palpable and symetrical. Absent : calf tenderness, cyanotic, pedal edema - Neurological Exam Neurological exam: Present: CN II-XII intact, oriented X3, no focal deficits. Absent: pronater drift, facial droop, speech deficit - Skin Skin exam: Present: dry, intact Internal Medicine: Result - Labs CBC & Chem 7: 07/11/16 03:36 07/11/16 03:36 Labs: Short CBC 07/11/16 Range/Units 03:36 WBC 13.1 H (4.3-11.1) K/mcL Hgb 10.5 L (12.9-16.9) g/dL Hct 33.1 L (37.5-50.1) % Plt Count 155 (140-400) K/mcL Neutrophils # 11.0 H (1.6-8.9) K/mcL BMP 07/11/16 03:36 Sodium 142 Potassium 4.6 H Chloride 113 H Carbon Dioxide 20 BUN 18 Creatinine 1.09 Glucose 95 Calcium 8.0 L - VTE Documentation of Mechanical Device: Intermittent pneumatic compression device Consult Discharge Plan - Plan Referrals: Tamera Portillo, BANKING MANAGER [Primary Care Provider] -
[2016-07-12] MEDS: *HR* HYDROmorphone 20 MG/20 ML PCA IVC PRN (00:42)
[2016-07-12] MEDS: *HR* Heparin 5,000 UNIT/ML VIAL SQ SCH ×3 (00:46→15:44)
[2016-07-12 05:54] LABS: BUN/Creatinine Ratio 17 (6-26); Blood Urea Nitrogen 19 mg/dL (8-26); Calcium 8.1 mg/dL (8.6-10.8); Carbon Dioxide 17 mEq/L (19-29); Chloride 110 mEq/L (98-109); Glucose 79 mg/dL (70-99); Osmolality,Calculated 287 (280-300); Sodium 138 mEq/L (136-145); eGFR For African Americans > 60 (> 60); eGFR For Non-African Americans > 60 (> 60)
[2016-07-12 06:21] LABS: Basophils % 0.3 %; Eosinophils # 0.1 K/mcL (0.0-0.6); Eosinophils % 0.7 %; Hematocrit 28.4 % (37.5-50.1); Hemoglobin 9.2 g/dL (12.9-16.9); Immature Granulocytes % 0.4 % (0-4); Lymphocytes # 0.7 K/mcL (0.6-4.6); Lymphocytes % 7.7 %; Mean Corpuscular HGB Conc 32.4 g/dL (31.6-35.5); Mean Corpuscular Hemoglobin 28.9 pg (28.0-33.3); Mean Corpuscular Volume 89.3 fL (83.0-100.0); Mean Platelet Volume 11.9 fL (9.4-12.4); Monocytes # 0.9 K/mcL (0.0-1.3); Monocytes % 9.9 %; Neutrophils # 7.6 K/mcL (1.6-8.9); Platelet Count 175 K/mcL (140-400); Red Blood Count 3.18 M/mcL (4.19-5.50); Red Cell Distribution Width 13.3 % (11.5-14.5)
[2016-07-12 08:02] LABS: Platelet Estimate Normal (Normal)
[2016-07-12] MEDS: Pantoprazole 40 MG VIAL IVP SCH (08:12)
[2016-07-12] MEDS: *HR* Metoprolol 5 MG/5 ML VIAL IVP SCH ×2 (08:12→18:00)
--- NOTE | 2016-07-12 09:22 | General Surgery Progress Note ---
Date of Encounter: 07/12/16 Time of Encounter: 09:20 - Assessment and Plan (1) S/P right colectomy Current Visit: Yes Status: Acute POD #3 exploratory laparotomy with small bowel resection/Right colectomy ice chips, sips of clear fluids, and popsicles IVF pain control OOB to chair, encourage ambulation supportive care (2) Carcinomatosis Current Visit: Yes Status: Acute pathology pending (3) Abdominal mass, RLQ (right lower quadrant) Current Visit: Yes Status: Acute (4) Leukocytosis Current Visit: Yes Status: Acute resolved 21.2>13.1>9.4 Qualifiers: Leukocytosis type: unspecified Qualified Code(s): D72.829 - Elevated white blood cell count, unspecified (5) Small bowel obstruction Current Visit: Yes Status: Resolved due to mass in RLQ - removed in surgery 07/08/2016 (6) Urinary retention Current Visit: Yes Status: Acute d/c delvalle this AM start flomax (7) Hypertension Current Visit: Yes Status: Chronic lopressor 5 mg IV q12 Qualifiers: Hypertension type: essential hypertension Qualified Code(s): I10 - Essential (primary) hypertension (8) DVT prophylaxis Current Visit: Yes Status: Acute subcutaneous heparin 5,000 units for DVT prophylaxis (9) Chronic kidney disease, stage 3 Current Visit: Yes Status: Chronic (10) Coronary artery disease Current Visit: No Status: Chronic Qualifiers: Coronary Disease-Associated Artery/Lesion type: [place] artery [place] vs. transplanted heart: [place] heart Associated angina: angina presence unspecified Qualified Code(s): I25.10 - Atherosclerotic heart disease of [place] coronary artery without angina pectoris Subjective Patient reports: flatus, no bowel movement, afebrile, other (confused this morning) Objective Vital Signs - Last 8 Hours Temp Pulse Resp BP Pulse Ox 07/12/16 05:51 98.2 F 88 18 120/52 93 L Intake and Output 07/11/16 07/12/16 07/12/16 23:59 07:59 15:59 Intake Total 0 / 0 0 / 0 700 / 700 Output Total 450 / 450 450 / 450 200 / 200 Balance -450 / -450 -450 / -450 500 / 500 Intake: IV Fluids 700 / 700 0.9 % Sodium Chloride 1, 700 / 700 000 ML @ 100 mls/hr IVC . Q10H [facility] Rx#:[id number] Oral 0 / 0 0 / 0 Output: Urine 350 / 350 200 / 200 Urethral (Delvalle) 200 / 200 Catheter 100 / 100 450 / 450 Other: Meal NPO Percent of Meal Consumed 0% Blood Glucose* 86 86 - General physical appearance well developed, well nourished - Eyes normal ocular movement - ENT normal mucosa, atraumatic, normocephalic - Neck Neck exam: trachea midline - Respiratory normal respiratory effort, clear to auscultation - Cardiovascular Cardiovascular exam: Present: RRR - Abdomen Abdomen: Present: bowel sounds present, soft, tender (mild) - Integumentary no rash - Psychiatric other (confused, upset) - Labs 07/12/16 05:30 07/12/16 04:45 Diabetes panel 07/12/16 Range/Units 04:45 Sodium 138 (136-145) mEq/L Potassium 5.0 H (3.5-4.5) mEq/L Chloride 110 H (98-109) mEq/L Carbon Dioxide 17 L (19-29) mEq/L BUN 19 (8-26) mg/dL Creatinine 1.15 (0.72-1.25) mg/dL Glucose 79 (70-99) mg/dL Calcium 8.1 L (8.6-10.8) mg/dL Calcium panel 07/12/16 Range/Units 04:45 Calcium 8.1 L (8.6-10.8) mg/dL Pituitary panel 07/12/16 Range/Units 04:45 Sodium 138 (136-145) mEq/L Potassium 5.0 H (3.5-4.5) mEq/L Chloride 110 H (98-109) mEq/L Carbon Dioxide 17 L (19-29) mEq/L BUN 19 (8-26) mg/dL Creatinine 1.15 (0.72-1.25) mg/dL Glucose 79 (70-99) mg/dL Calcium 8.1 L (8.6-10.8) mg/dL Adrenal panel 07/12/16 Range/Units 04:45 Sodium 138 (136-145) mEq/L Potassium 5.0 H (3.5-4.5) mEq/L Chloride 110 H (98-109) mEq/L Carbon Dioxide 17 L (19-29) mEq/L BUN 19 (8-26) mg/dL Creatinine 1.15 (0.72-1.25) mg/dL Glucose 79 (70-99) mg/dL Calcium 8.1 L (8.6-10.8) mg/dL - VTE Documentation of Mechanical Device: Intermittent pneumatic compression device Consult Discharge Plan - Plan Referrals: Tamera Portillo, CREDIT PRODUCTS OFFICER [Primary Care Provider] -
--- NOTE | 2016-07-12 12:48 | Internal Med Progress Note ---
Date of Encounter: 07/12/16 Time of Encounter: 09:00 - Assessment and plan (1) Abdominal mass, RLQ (right lower quadrant) Current Visit: Yes Status: Acute Assessment and plan: Surgery is on board. s/p expl. laparotomy with resection of the mass with anastomosis of small bowel to transverse colon Diet advanced per surgery Patient is at high risk because he has abdominal mass and small bowel obstruction, which need surgical intervention. (2) Chronic kidney disease, stage 3 Current Visit: Yes Status: Chronic Assessment and plan: Pt. has [place] on CKD-3 Continue IV fluids Avoid nephrotoxic agents and hypotension Renal function improved (3) Hypertension Current Visit: Yes Status: Chronic Assessment and plan: Controlled. Hold ACEI/ARB due to [place] Qualifiers: Hypertension type: essential hypertension Qualified Code(s): I10 - Essential (primary) hypertension (4) Small bowel obstruction Current Visit: Yes Status: Resolved Assessment and plan: S/P surgery. Diet when okay per surgery (5) Abdominal aortic aneurysm Current Visit: No Status: Chronic Assessment and plan: Out pt. follow up Qualifiers: Presence of rupture: without rupture Qualified Code(s): I71.4 - Abdominal aortic aneurysm, without rupture (6) Coronary artery disease Current Visit: No Status: Chronic Assessment and plan: hx of CAD. s/p PCi with 3 stents. Denies CP. Plavix and aspirin with held due to surgery. Will resume home medication when diet is started. Qualifiers: Coronary Disease-Associated Artery/Lesion type: [place] artery [place] vs. transplanted heart: [place] heart Associated angina: angina presence unspecified Qualified Code(s): I25.10 - Atherosclerotic heart disease of [place] coronary artery without angina pectoris (7) DVT prophylaxis Current Visit: Yes Status: Acute Assessment and plan: Heparin SQ - Time Spent With Patient Greater than 35 minutes - Subjective Interval history: Patient is a 81-year-old male admitted for abdominal mass and a partial small bowel obstruction. His past medical history is significant for cardiomyopathy, CAD, hypertension. Patient had the surgery on July 09, 2016. Patient was seen and examined. He is awake alert, oriented 3. No fever. Vitals are stable. Mild pain. Surgical follow-up appreciated. Recommendation will be followed. - Constitutional Vitals: Temp Pulse Resp BP Pulse Ox 98.4 F 102 16 171/90 95 07/12/16 10:26 07/12/16 10:26 07/12/16 10:26 07/12/16 10:26 07/12/16 10:26 General appearance: Present: cooperative, A&O X 3, no acute distress, answers questions appropriately - Head Head exam: Present: atraumatic, normocephalic - Eye Eye exam: Present: PERRL, conjuntiva pink, sclera anicteric Pupils: Present: PERRL - Neck Neck exam general surgery: Present: supple, trachea midline. Absent: lymphadenopathy - Respiratory Respiratory exam: Present: CTAB. Absent: accessory muscle use, rales, rhonchi, wheezes - Cardiovascular Cardiovascular exam: Present: RRR, +S1, +S2. Absent: diastolic murmur, gallop, rubs, systolic murmur - GI/Abdominal GI/Abdominal exam: Present: normal bowel sounds, soft, tenderness (Mild incision tenderness), no peritoneal signs. Absent: distended - Extremities Exam Extremities exam: Present: warm, radial pulses palpable and symetrical. Absent : calf tenderness, cyanotic, pedal edema - Neurological Exam Neurological exam: Present: CN II-XII intact, oriented X3, no focal deficits. Absent: pronater drift, facial droop, speech deficit - Skin Skin exam: Present: dry, intact Internal Medicine: Result - Labs CBC & Chem 7: 07/12/16 05:30 07/12/16 04:45 Labs: Short CBC 07/12/16 Range/Units 05:30 WBC 9.4 (4.3-11.1) K/mcL Hgb 9.2 L (12.9-16.9) g/dL Hct 28.4 L (37.5-50.1) % Plt Count 175 (140-400) K/mcL Neutrophils # 7.6 (1.6-8.9) K/mcL BMP 07/12/16 04:45 Sodium 138 Potassium 5.0 H Chloride 110 H Carbon Dioxide 17 L BUN 19 Creatinine 1.15 Glucose 79 Calcium 8.1 L - Impressions Impressions KUB X-Ray 07/11/16 20:20 IMPRESSION: The nasogastric tube is not visualized. D/ / 07/11/2016 21:07:46 Cirilo Hill MD / Neeru Gaines Interpreting Provider: Cirilo Hill MD - VTE Documentation of Mechanical Device: Intermittent pneumatic compression device Consult Discharge Plan - Plan Referrals: Tamera Portillo, ASIC DESIGN ENGINEER [Primary Care Provider] -
[2016-07-12] MEDS: *HR* HYDROmorphone (PF) 1 MG/ML SYRINGE IVP PRN ×2 (13:17→15:43)
[2016-07-12] MEDS: Acetaminophen 325 MG TABLET PO PRN (20:28)
[2016-07-12] MEDS: 0.9 % Sodium Chloride 1,000 ML IVC SCH (21:10)
[2016-07-13] MEDS: *HR* Heparin 5,000 UNIT/ML VIAL SQ SCH ×3 (00:07→16:00)
[2016-07-13] MEDS: *HR* Metoprolol 5 MG/5 ML VIAL IVP SCH (05:15)
[2016-07-13 06:16] LABS: Basophils % 0.3 %; Eosinophils # 0.1 K/mcL (0.0-0.6); Eosinophils % 0.5 %; Hematocrit 32.5 % (37.5-50.1); Hemoglobin 10.5 g/dL (12.9-16.9); Immature Granulocytes % 0.6 % (0-4); Lymphocytes # 0.7 K/mcL (0.6-4.6); Lymphocytes % 6.3 %; Mean Corpuscular HGB Conc 32.3 g/dL (31.6-35.5); Mean Corpuscular Hemoglobin 28.3 pg (28.0-33.3); Mean Corpuscular Volume 87.6 fL (83.0-100.0); Mean Platelet Volume 11.1 fL (9.4-12.4); Monocytes # 1.4 K/mcL (0.0-1.3); Monocytes % 13.5 %; Neutrophils # 8.1 K/mcL (1.6-8.9); Platelet Count 243 K/mcL (140-400); Red Blood Count 3.71 M/mcL (4.19-5.50); Red Cell Distribution Width 13.3 % (11.5-14.5); Segmented Neutrophils % 78.8 %
[2016-07-13 06:28] LABS: BUN/Creatinine Ratio 20 (6-26); Blood Urea Nitrogen 24 mg/dL (8-26); Calcium 8.2 mg/dL (8.6-10.8); Carbon Dioxide 19 mEq/L (19-29); Chloride 110 mEq/L (98-109); Glucose 102 mg/dL (70-99); Osmolality,Calculated 294 (280-300); Sodium 140 mEq/L (136-145); eGFR For African Americans > 60 (> 60); eGFR For Non-African Americans 58 (> 60)
[2016-07-13 06:34] LABS: Potassium 3.4 mEq/L (3.5-4.5)
[2016-07-13 06:50] LABS: Carcinoembryonic Antigen 1.3 ng/mL (0-5.0)
[2016-07-13] MEDS: Pantoprazole 40 MG VIAL IVP SCH (08:14)
[2016-07-13] MEDS: *HR* HYDROmorphone (PF) 1 MG/ML SYRINGE IVP PRN ×2 (09:38→16:00)
--- NOTE | 2016-07-13 11:42 | General Surgery Progress Note ---
Date of Encounter: 07/13/16 Time of Encounter: 11:40 - Assessment and Plan (1) S/P right colectomy Current Visit: Yes Status: Acute POD #4 exploratory laparotomy with small bowel resection/Right colectomy clear fluids IVF pain control encourage ambulation supportive care (2) Carcinomatosis Current Visit: Yes Status: Acute pathology pending (3) Abdominal mass, RLQ (right lower quadrant) Current Visit: Yes Status: Acute (4) Leukocytosis Current Visit: Yes Status: Acute resolved Qualifiers: Leukocytosis type: unspecified Qualified Code(s): D72.829 - Elevated white blood cell count, unspecified (5) Small bowel obstruction Current Visit: Yes Status: Resolved due to mass in RLQ - removed in surgery 07/08/2016 (6) Urinary retention Current Visit: Yes Status: Acute delvalle due to inability to urinate flomax (7) Hypertension Current Visit: Yes Status: Chronic controlled lopressor 5 mg IV q12 Qualifiers: Hypertension type: essential hypertension Qualified Code(s): I10 - Essential (primary) hypertension (8) DVT prophylaxis Current Visit: Yes Status: Acute subcutaneous heparin 5,000 units for DVT prophylaxis (9) Chronic kidney disease, stage 3 Current Visit: Yes Status: Chronic (10) Coronary artery disease Current Visit: No Status: Chronic Qualifiers: Coronary Disease-Associated Artery/Lesion type: [place] artery [place] vs. transplanted heart: [place] heart Associated angina: angina presence unspecified Qualified Code(s): I25.10 - Atherosclerotic heart disease of [place] coronary artery without angina pectoris Subjective Patient reports: no new complaints, flatus, bowel movement, afebrile Objective Vital Signs - Last 8 Hours Temp Pulse Resp BP Pulse Ox 07/13/16 10:00 97.5 F L 86 14 134/72 94 L 07/13/16 07:04 97.8 F 84 18 144/75 97 07/13/16 03:53 97.9 F 90 15 103/58 94 L Intake and Output 07/12/16 07/13/16 07/13/16 23:59 07:59 15:59 Intake Total 300 / 300 582 / 582 702 / 702 Output Total 900 / 900 250 / 250 300 / 300 Balance -600 / -600 332 / 332 402 / 402 Intake: IV Fluids 300 / 300 582 / 582 222 / 222 0.9 % Sodium Chloride 1, 300 / 300 582 / 582 222 / 222 000 ML @ 75 mls/hr IVC . [id number] [facility] Rx#: [id number] Oral 0 / 0 0 / 0 480 / 480 Output: Urine 350 / 350 100 / 100 Urethral ([place]) 350 / 350 Catheter 550 / 550 150 / 150 300 / 300 Other: Meal REFUSED Stool Size Moderate Stool Consistency loose Stool Color Brown # Bowel Movements 1 Weight 99.79 kg Patient Weight 07/13/16 23:59 Weight 99.79 kg - General physical appearance well developed, well nourished, no distress - Eyes normal ocular movement - ENT normal mucosa, atraumatic, normocephalic - Neck Neck exam: trachea midline - Respiratory normal respiratory effort, clear to auscultation - Cardiovascular Cardiovascular exam: Present: RRR - Abdomen Abdomen: Present: bowel sounds present, soft, tender (minimally) - Integumentary no rash - Neurologic CN 2-12 grossly intact - Psychiatric oriented to time, oriented to person, oriented to place, speech is normal - Labs 07/13/16 04:55 07/13/16 04:55 Diabetes panel 07/13/16 Range/Units 04:55 Sodium 140 (136-145) mEq/L Potassium 3.4 L D (3.5-4.5) mEq/L Chloride 110 H (98-109) mEq/L Carbon Dioxide 19 (19-29) mEq/L BUN 24 (8-26) mg/dL Creatinine 1.20 (0.72-1.25) mg/dL Glucose 102 H (70-99) mg/dL Calcium 8.2 L (8.6-10.8) mg/dL Calcium panel 07/13/16 Range/Units 04:55 Calcium 8.2 L (8.6-10.8) mg/dL Pituitary panel 07/13/16 Range/Units 04:55 Sodium 140 (136-145) mEq/L Potassium 3.4 L D (3.5-4.5) mEq/L Chloride 110 H (98-109) mEq/L Carbon Dioxide 19 (19-29) mEq/L BUN 24 (8-26) mg/dL Creatinine 1.20 (0.72-1.25) mg/dL Glucose 102 H (70-99) mg/dL Calcium 8.2 L (8.6-10.8) mg/dL Adrenal panel 07/13/16 Range/Units 04:55 Sodium 140 (136-145) mEq/L Potassium 3.4 L D (3.5-4.5) mEq/L Chloride 110 H (98-109) mEq/L Carbon Dioxide 19 (19-29) mEq/L BUN 24 (8-26) mg/dL Creatinine 1.20 (0.72-1.25) mg/dL Glucose 102 H (70-99) mg/dL Calcium 8.2 L (8.6-10.8) mg/dL - VTE Documentation of Mechanical Device: Intermittent pneumatic compression device Consult Discharge Plan - Plan Referrals: Tamera Portillo, CAUSTIC PLANT WORKER [Primary Care Provider] -
--- NOTE | 2016-07-13 14:41 | Internal Med Progress Note ---
Date of Encounter: 07/13/16 Time of Encounter: 11:45 - Assessment and plan (1) Abdominal mass, RLQ (right lower quadrant) Current Visit: Yes Status: Acute Assessment and plan: Patient doing well post-exploratory laparotomy with resection of mass with anastomosis of small bowel to transverse colon. On clear liquid diet. Diet being managed by surgery. (2) DVT prophylaxis Current Visit: Yes Status: Acute Assessment and plan: With subcutaneous heparin (3) Chronic kidney disease, stage 3 Current Visit: Yes Status: Chronic Assessment and plan: Acute kidney injury resolved. Patient's creatinine at baseline. (4) Hypertension Current Visit: Yes Status: Chronic Assessment and plan: Well-controlled. Continue metoprolol. As patient is on a diet, will change medication back to oral meds. Qualifiers: Hypertension type: essential hypertension Qualified Code(s): I10 - Essential (primary) hypertension (5) Small bowel obstruction Current Visit: Yes Status: Resolved Assessment and plan: Status post exploratory laparotomy. (6) Coronary artery disease Current Visit: No Status: Chronic Assessment and plan: Resume home medications. Qualifiers: Coronary Disease-Associated Artery/Lesion type: [place] artery [place] vs. transplanted heart: tribe heart Associated angina: angina presence unspecified Qualified Code(s): I25.10 - Atherosclerotic heart disease of tribe coronary artery without angina pectoris - Subjective Interval history: Patient just received intravenous narcotic pain medication and is resting. Denies any new complaints at this time. Pain has improved after his received IV pain medication. Tolerating clear liquid diet - Constitutional Vitals: Temp Pulse Resp BP Pulse Ox 97.5 F L 86 14 134/72 94 L 07/13/16 10:00 07/13/16 10:00 07/13/16 10:00 07/13/16 10:07/13/16 10:00 General appearance: Present: cooperative, A&O X 3, no acute distress, answers questions appropriately - Respiratory Respiratory exam: Present: CTAB. Absent: accessory muscle use, rales, rhonchi, wheezes - Cardiovascular Cardiovascular exam: Present: RRR, +S1, +S2. Absent: diastolic murmur, gallop, rubs, systolic murmur - GI/Abdominal GI/Abdominal exam: Present: normal bowel sounds, soft, no peritoneal signs. Absent: distended, tenderness - Extremities Exam Extremities exam: Present: warm, radial pulses palpable and symetrical. Absent : calf tenderness, cyanotic, pedal edema - Neurological Exam Neurological exam: Present: oriented X3, no focal deficits. Absent: facial droop, speech deficit - Skin Skin exam: Present: dry, intact Internal Medicine: Result - Labs CBC & Chem 7: 07/13/16 04:55 07/13/16 04:55 Labs: Short CBC 07/13/16 Range/Units 04:55 WBC 10.3 (4.3-11.1) K/mcL Hgb 10.5 L (12.9-16.9) g/dL Hct 32.5 L (37.5-50.1) % Plt Count 243 (140-400) K/mcL Neutrophils # 8.1 (1.6-8.9) K/mcL BMP 07/13/16 04:55 Sodium 140 Potassium 3.4 L D Chloride 110 H Carbon Dioxide 19 BUN 24 Creatinine 1.20 Glucose 102 H Calcium 8.2 L - VTE Documentation of Mechanical Device: Intermittent pneumatic compression device Consult Discharge Plan - Plan Referrals: Tamera Portillo, REGIONAL PROGRAM MANAGER [Primary Care Provider] - - Attending Attestation This document has been at least partially created by [employer] recognition technology by Dr. Rouse. Errors in grammar, wording or other phrases may exist. If errors are found after the documentation is signed, they will be addressed individually in the addendum section of this document when appropriate. Medical Decision Making - MDM Narrative Medical decision making narrative: Moderate risk for complications - Medical Records Medical records reviewed: Yes I reviewed the patient's medical records. - Lab Data Lab results reviewed: Yes I reviewed the patient's lab results. Result diagrams: 07/13/16 04:55 07/13/16 04:55 Lab Results 07/09/16 07/09/16 07/09/16 Range/Units 04:08 05:59 05:59 WBC 8.8 (4.3-11.1) K/mcL RBC 4.34 (4.19-5.50) M/mcL Hgb 12.5 L (12.9-16.9) g/dL Hct 38.6 (37.5-50.1) % MCV 88.9 (83.0-100.0) fL MCH 28.8 (28.0-33.3) pg MCHC 32.4 (31.6-35.5) g/dL RDW 13.0 (11.5-14.5) % Plt Count 215 (140-400) K/mcL MPV 10.9 (9.4-12.4) fL Immature Gran % 0.5 (0-4) % Seg Neutrophils % 73.3 % Lymphocytes % 10.7 % Monocytes % 9.8 % Eosinophils % 4.9 % Basophils % 0.8 % Neutrophils # 6.5 (1.6-8.9) K/mcL Lymphocytes # 0.9 (0.6-4.6) K/mcL Monocytes # 0.9 (0.0-1.3) K/mcL Eosinophils # 0.4 (0.0-0.6) K/mcL Basophils # 0.1 (0.0-0.2) K/mcL Platelet Estimate (Normal) Sodium 139 (136-145) mEq/L Potassium 3.7 (3.5-4.5) mEq/L Chloride 108 (98-109) mEq/L Carbon Dioxide 23 (19-29) mEq/L BUN 11 (8-26) mg/dL Creatinine 1.15 (0.72-1.25) mg/dL Est GFR ( Amer) > 60 (> 60) Est GFR (Non-Af Amer) > 60 (> 60) BUN/Creatinine Ratio 10 (6-26) Glucose 90 (70-99) mg/dL POC Glucose 82 (58-89) Calculated Osmolality 287 (280-300) Calcium 8.7 (8.6-10.8) mg/dL Magnesium 1.7 (1.6-2.6) mg/dL Carcinoembryonic Ag (0-5.0) ng/mL 07/10/16 07/10/16 07/10/16 Range/Units 00:47 04:34 04:34 WBC 21.2 H D (4.3-11.1) K/mcL RBC 4.14 L (4.19-5.50) M/mcL Hgb 11.7 L (12.9-16.9) g/dL Hct 37.3 L (37.5-50.1) % MCV 90.1 (83.0-100.0) fL MCH 28.3 (28.0-33.3) pg MCHC 31.4 L (31.6-35.5) g/dL RDW 13.0 (11.5-14.5) % Plt Count 222 (140-400) K/mcL MPV 10.9 (9.4-12.4) fL Immature Gran % 0.4 (0-4) % Seg Neutrophils % 92.4 % Lymphocytes % 1.8 % Monocytes % 5.2 % Eosinophils % 0.0 % Basophils % 0.2 % Neutrophils # 19.6 H (1.6-8.9) K/mcL Lymphocytes # 0.4 L (0.6-4.6) K/mcL Monocytes # 1.1 (0.0-1.3) K/mcL Eosinophils # 0.0 (0.0-0.6) K/mcL Basophils # 0.0 (0.0-0.2) K/mcL Platelet Estimate (Normal) Sodium 139 (136-145) mEq/L Potassium 4.3 (3.5-4.5) mEq/L Chloride 110 H (98-109) mEq/L Carbon Dioxide 17 L (19-29) mEq/L BUN 16 (8-26) mg/dL Creatinine 1.26 H (0.72-1.25) mg/dL Est GFR ( Amer) > 60 (> 60) Est GFR (Non-Af Amer) 55 L (> 60) BUN/Creatinine Ratio 13 (6-26) Glucose 124 H (70-99) mg/dL POC Glucose 110 H (58-89) Calculated Osmolality 291 (280-300) Calcium 8.3 L (8.6-10.8) mg/dL Magnesium 1.7 (1.6-2.6) mg/dL Carcinoembryonic Ag (0-5.0) ng/mL 07/10/16 07/10/16 07/10/16 Range/Units 05:12 11:31 17:19 WBC (4.3-11.1) K/mcL RBC (4.19-5.50) M/mcL Hgb (12.9-16.9) g/dL Hct (37.5-50.1) % MCV (83.0-100.0) fL MCH (28.0-33.3) pg MCHC (31.6-35.5) g/dL RDW (11.5-14.5) % Plt Count (140-400) K/mcL MPV (9.4-12.4) fL Immature Gran % (0-4) % Seg Neutrophils % % Lymphocytes % % Monocytes % % Eosinophils % % Basophils % % Neutrophils # (1.6-8.9) K/mcL Lymphocytes # (0.6-4.6) K/mcL Monocytes # (0.0-1.3) K/mcL Eosinophils # (0.0-0.6) K/mcL Basophils # (0.0-0.2) K/mcL Platelet Estimate (Normal) Sodium (136-145) mEq/L Potassium (3.5-4.5) mEq/L Chloride (98-109) mEq/L Carbon Dioxide (19-29) mEq/L BUN (8-26) mg/dL Creatinine (0.72-1.25) mg/dL Est GFR ( Amer) (> 60) Est GFR (Non-Af Amer) (> 60) BUN/Creatinine Ratio (6-26) Glucose (70-99) mg/dL POC Glucose 125 H 121 H 114 H (58-89) Calculated Osmolality (280-300) Calcium (8.6-10.8) mg/dL Magnesium (1.6-2.6) mg/dL Carcinoembryonic Ag (0-5.0) ng/mL 07/10/16 07/11/16 07/11/16 Range/Units 23:50 03:36 03:36 WBC 13.1 H (4.3-11.1) K/mcL RBC 3.74 L (4.19-5.50) M/mcL Hgb 10.5 L (12.9-16.9) g/dL Hct 33.1 L (37.5-50.1) % MCV 88.5 (83.0-100.0) fL MCH 28.1 (28.0-33.3) pg MCHC 31.7 (31.6-35.5) g/dL RDW 13.2 (11.5-14.5) % Plt Count 155 (140-400) K/mcL MPV 11.8 (9.4-12.4) fL Immature Gran % 0.6 (0-4) % Seg Neutrophils % 84.4 % Lymphocytes % 5.3 % Monocytes % 9.3 % Eosinophils % 0.2 % Basophils % 0.2 % Neutrophils # 11.0 H (1.6-8.9) K/mcL Lymphocytes # 0.7 (0.6-4.6) K/mcL Monocytes # 1.2 (0.0-1.3) K/mcL Eosinophils # 0.0 (0.0-0.6) K/mcL Basophils # 0.0 (0.0-0.2) K/mcL Platelet Estimate Normal (Normal) Sodium 142 (136-145) mEq/L Potassium 4.6 H (3.5-4.5) mEq/L Chloride 113 H (98-109) mEq/L Carbon Dioxide 20 (19-29) mEq/L BUN 18 (8-26) mg/dL Creatinine 1.09 (0.72-1.25) mg/dL Est GFR ( Amer) > 60 (> 60) Est GFR (Non-Af Amer) > 60 (> 60) BUN/Creatinine Ratio 17 (6-26) Glucose 95 (70-99) mg/dL POC Glucose 105 H (58-89) Calculated Osmolality 296 (280-300) Calcium 8.0 L (8.6-10.8) mg/dL Magnesium 2.3 (1.6-2.6) mg/dL Carcinoembryonic Ag (0-5.0) ng/mL 07/11/16 07/12/16 07/12/16 Range/Units 05:29 00:02 04:45 WBC (4.3-11.1) K/mcL RBC (4.19-5.50) M/mcL Hgb (12.9-16.9) g/dL Hct (37.5-50.1) % MCV (83.0-100.0) fL MCH (28.0-33.3) pg MCHC (31.6-35.5) g/dL RDW (11.5-14.5) % Plt Count (140-400) K/mcL MPV (9.4-12.4) fL Immature Gran % (0-4) % Seg Neutrophils % % Lymphocytes % % Monocytes % % Eosinophils % % Basophils % % Neutrophils # (1.6-8.9) K/mcL Lymphocytes # (0.6-4.6) K/mcL Monocytes # (0.0-1.3) K/mcL Eosinophils # (0.0-0.6) K/mcL Basophils # (0.0-0.2) K/mcL Platelet Estimate (Normal) Sodium 138 (136-145) mEq/L Potassium 5.0 H (3.5-4.5) mEq/L Chloride 110 H (98-109) mEq/L Carbon Dioxide 17 L (19-29) mEq/L BUN 19 (8-26) mg/dL Creatinine 1.15 (0.72-1.25) mg/dL Est GFR ( Amer) > 60 (> 60) Est GFR (Non-Af Amer) > 60 (> 60) BUN/Creatinine Ratio 17 (6-26) Glucose 79 (70-99) mg/dL POC Glucose 85 86 (58-89) Calculated Osmolality 287 (280-300) Calcium 8.1 L (8.6-10.8) mg/dL Magnesium (1.6-2.6) mg/dL Carcinoembryonic Ag (0-5.0) ng/mL 07/12/16 07/12/16 07/12/16 Range/Units 05:04 05:30 11:36 WBC 9.4 (4.3-11.1) K/mcL RBC 3.18 L (4.19-5.50) M/mcL Hgb 9.2 L (12.9-16.9) g/dL Hct 28.4 L (37.5-50.1) % MCV 89.3 (83.0-100.0) fL MCH 28.9 (28.0-33.3) pg MCHC 32.4 (31.6-35.5) g/dL RDW 13.3 (11.5-14.5) % Plt Count 175 (140-400) K/mcL MPV 11.9 (9.4-12.4) fL Immature Gran % 0.4 (0-4) % Seg Neutrophils % 81.0 % Lymphocytes % 7.7 % Monocytes % 9.9 % Eosinophils % 0.7 % Basophils % 0.3 % Neutrophils # 7.6 (1.6-8.9) K/mcL Lymphocytes # 0.7 (0.6-4.6) K/mcL Monocytes # 0.9 (0.0-1.3) K/mcL Eosinophils # 0.1 (0.0-0.6) K/mcL Basophils # 0.0 (0.0-0.2) K/mcL Platelet Estimate Normal (Normal) Sodium (136-145) mEq/L Potassium (3.5-4.5) mEq/L Chloride (98-109) mEq/L Carbon Dioxide (19-29) mEq/L BUN (8-26) mg/dL Creatinine (0.72-1.25) mg/dL Est GFR ( Amer) (> 60) Est GFR (Non-Af Amer) (> 60) BUN/Creatinine Ratio (6-26) Glucose (70-99) mg/dL POC Glucose 86 93 H (58-89) Calculated Osmolality (280-300) Calcium (8.6-10.8) mg/dL Magnesium (1.6-2.6) mg/dL Carcinoembryonic Ag (0-5.0) ng/mL 07/13/16 07/13/16 Range/Units 04:55 04:55 WBC 10.3 (4.3-11.1) K/mcL RBC 3.71 L (4.19-5.50) M/mcL Hgb 10.5 L (12.9-16.9) g/dL Hct 32.5 L (37.5-50.1) % MCV 87.6 (83.0-100.0) fL MCH 28.3 (28.0-33.3) pg MCHC 32.3 (31.6-35.5) g/dL RDW 13.3 (11.5-14.5) % Plt Count 243 (140-400) K/mcL MPV 11.1 (9.4-12.4) fL Immature Gran % 0.6 (0-4) % Seg Neutrophils % 78.8 % Lymphocytes % 6.3 % Monocytes % 13.5 % Eosinophils % 0.5 % Basophils % 0.3 % Neutrophils # 8.1 (1.6-8.9) K/mcL Lymphocytes # 0.7 (0.6-4.6) K/mcL Monocytes # 1.4 H (0.0-1.3) K/mcL Eosinophils # 0.1 (0.0-0.6) K/mcL Basophils # 0.0 (0.0-0.2) K/mcL Platelet Estimate (Normal) Sodium 140 (136-145) mEq/L Potassium 3.4 L D (3.5-4.5) mEq/L Chloride 110 H (98-109) mEq/L Carbon Dioxide 19 (19-29) mEq/L BUN 24 (8-26) mg/dL Creatinine 1.20 (0.72-1.25) mg/dL Est GFR ( Amer) > 60 (> 60) Est GFR (Non-Af Amer) 58 L (> 60) BUN/Creatinine Ratio 20 (6-26) Glucose 102 H (70-99) mg/dL POC Glucose (58-89) Calculated Osmolality 294 (280-300) Calcium 8.2 L (8.6-10.8) mg/dL Magnesium (1.6-2.6) mg/dL Carcinoembryonic Ag 1.3 (0-5.0) ng/mL
[2016-07-13] MEDS ORDERED: Sennosides/Docusate Sodium TABLET PO PRN (14:47)
[2016-07-13] MEDS: 0.9 % Sodium Chloride 1,000 ML IVC SCH (18:30)
[2016-07-13] MEDS: *HR* OxyCODONE/APAP 5/325 TABLET PO PRN (19:35)
[2016-07-14] MEDS: *HR* Heparin 5,000 UNIT/ML VIAL SQ SCH ×4 (00:26→23:27)
[2016-07-14 06:45] LABS: Basophils % 0.4 %; Eosinophils # 0.2 K/mcL (0.0-0.6); Eosinophils % 2.5 %; Hematocrit 28.4 % (37.5-50.1); Hemoglobin 9.2 g/dL (12.9-16.9); Immature Granulocytes % 0.8 % (0-4); Lymphocytes # 0.6 K/mcL (0.6-4.6); Lymphocytes % 7.5 %; Mean Corpuscular HGB Conc 32.4 g/dL (31.6-35.5); Mean Corpuscular Volume 86.6 fL (83.0-100.0); Mean Platelet Volume 10.9 fL (9.4-12.4); Monocytes % 12.9 %; Neutrophils # 6.1 K/mcL (1.6-8.9); Platelet Count 227 K/mcL (140-400); Red Blood Count 3.28 M/mcL (4.19-5.50); Red Cell Distribution Width 13.3 % (11.5-14.5); Segmented Neutrophils % 75.9 %
[2016-07-14 07:02] LABS: BUN/Creatinine Ratio 16 (6-26); Blood Urea Nitrogen 18 mg/dL (8-26); Calcium 8.1 mg/dL (8.6-10.8); Carbon Dioxide 24 mEq/L (19-29); Chloride 110 mEq/L (98-109); Glucose 110 mg/dL (70-99); Osmolality,Calculated 295 (280-300); Potassium 3.1 mEq/L (3.5-4.5); Sodium 141 mEq/L (136-145); eGFR For African Americans > 60 (> 60); eGFR For Non-African Americans > 60 (> 60)
[2016-07-14] MEDS: Aspirin Enteric Coated 81 MG Tablet PO SCH (08:41)
[2016-07-14] MEDS: Potassium Chloride Elixir 20 MEQ/15 ML UDC PO SCH (08:41)
[2016-07-14] MEDS: amLODIPine 5 MG TABLET PO SCH (08:41)
--- NOTE | 2016-07-14 11:14 | General Surgery Progress Note ---
Date of Encounter: 07/14/16 Time of Encounter: 11:12 - Assessment and Plan (1) S/P right colectomy Current Visit: Yes Status: Acute POD #5 exploratory laparotomy with small bowel resection/Right colectomy with Dr. Becker Advance to soft diet Pathology pending Supportive care and pain control Increase activity as tolerated (2) Carcinomatosis Current Visit: Yes Status: Acute POD #5 exploratory laparotomy with small bowel resection/Right colectomy Pathology pending (3) Hypokalemia Current Visit: Yes Status: Acute replaced per medicine service (4) DVT prophylaxis Current Visit: Yes Status: Acute Continue heparin 5,000 units SQ twice daily for DVT prophylaxis Subjective Patient reports: no new complaints, feels better, still having pain, pain is less, voiding w/o difficulty, flatus, bowel movement, afebrile Objective Vital Signs - Last 8 Hours Temp Pulse Resp BP Pulse Ox 07/14/16 11:04 97.9 F 70 14 122/68 97 07/14/16 06:32 98.0 F 73 14 134/73 96 Intake and Output 07/13/16 07/14/16 07/14/16 23:59 07:59 15:59 Intake Total 196 / 196 557 / 557 Output Total 0 / 0 0 / 0 0 / 0 Balance 196 / 196 0 / 0 557 / 557 Intake: IV Fluids 196 / 196 557 / 557 0.9 % Sodium Chloride 1, 196 / 196 557 / 557 000 ML @ 75 mls/hr IVC . [id number] [facility] Rx#: [id number] Oral 0 / 0 Output: Urine 0 / 0 0 / 0 0 / 0 Other: Meal Dinner Percent of Meal Consumed 0% Stool Size Large Stool Consistency loose Stool Color Brown # Voids 1 - General physical appearance well developed, well nourished, no distress - Eyes normal ocular movement - ENT normal mucosa, atraumatic, normocephalic - Neck Neck exam: trachea midline - Respiratory normal respiratory effort, clear to auscultation - Cardiovascular Cardiovascular exam: Present: RRR - Abdomen Abdomen: Present: bowel sounds present (hypoactive), soft, non tender - Incision Incision: Present: clean and dry, intact - Integumentary no rash - Neurologic CN 2-12 grossly intact - Psychiatric oriented to time, oriented to person, oriented to place, speech is normal, memory intact - Labs 01/04/17 06:04 07/14/16 06:04 Diabetes panel 07/14/16 Range/Units 06:04 Sodium 141 (136-145) mEq/L Potassium 3.1 L (3.5-4.5) mEq/L Chloride 110 H (98-109) mEq/L Carbon Dioxide 24 (19-29) mEq/L BUN 18 (8-26) mg/dL Creatinine 1.12 (0.72-1.25) mg/dL Glucose 110 H (70-99) mg/dL Calcium 8.1 L (8.6-10.8) mg/dL Calcium panel 07/14/16 Range/Units 06:04 Calcium 8.1 L (8.6-10.8) mg/dL Pituitary panel 07/14/16 Range/Units 06:04 Sodium 141 (136-145) mEq/L Potassium 3.1 L (3.5-4.5) mEq/L Chloride 110 H (98-109) mEq/L Carbon Dioxide 24 (19-29) mEq/L BUN 18 (8-26) mg/dL Creatinine 1.12 (0.72-1.25) mg/dL Glucose 110 H (70-99) mg/dL Calcium 8.1 L (8.6-10.8) mg/dL Adrenal panel 07/14/16 Range/Units 06:04 Sodium 141 (136-145) mEq/L Potassium 3.1 L (3.5-4.5) mEq/L Chloride 110 H (98-109) mEq/L Carbon Dioxide 24 (19-29) mEq/L BUN 18 (8-26) mg/dL Creatinine 1.12 (0.72-1.25) mg/dL Glucose 110 H (70-99) mg/dL Calcium 8.1 L (8.6-10.8) mg/dL - VTE Documentation of Mechanical Device: Intermittent pneumatic compression device Consult Discharge Plan - Plan Referrals: Tamera Portillo, RAMP FLIGHT ATTENDANT [Primary Care Provider] - - Attending Attestation I examined this patient and my medical decision-making was reviewed with the OCCUPANCY SPECIALIST/PA/Advanced Practice Nurse/Resident Physician. I agree with the documented findings, disposition and treatment plan as described except to the extent set forth below.
[2016-07-14] MEDS: *HR* OxyCODONE/APAP 5/325 TABLET PO PRN (12:06)
[2016-07-14] MEDS: *HR* HYDROmorphone (PF) 1 MG/ML SYRINGE IVP PRN ×3 (14:14→23:27)
[2016-07-14] MEDS ORDERED: D5% in 0.45% NACL 1,000 ML IVC SCH (16:30)
--- NOTE | 2016-07-14 16:33 | Internal Med Progress Note ---
Date of Encounter: 07/14/16 Time of Encounter: 16:31 - Assessment and plan (1) Abdominal mass, RLQ (right lower quadrant) Current Visit: Yes Status: Acute Assessment and plan: Status post exploratory laparotomy with resection of mass and anastomosis of small bowel to transverse colon. Advancing diet to soft per surgery recommendations. Tolerating well. We will also change IV fluids to D5 half and less. (2) Chronic kidney disease, stage 3 Current Visit: Yes Status: Chronic Assessment and plan: Stable. Hypokalemia persists. Will order oral potassium replacement. (3) Hypertension Current Visit: Yes Status: Chronic Assessment and plan: Well-controlled Qualifiers: Hypertension type: essential hypertension Qualified Code(s): I10 - Essential (primary) hypertension (4) Small bowel obstruction Current Visit: Yes Status: Resolved Assessment and plan: Resolved with surgery (5) Coronary artery disease Current Visit: No Status: Chronic Assessment and plan: On aspirin, Plavix, carvedilol Qualifiers: Coronary Disease-Associated Artery/Lesion type: [place] artery [place] vs. transplanted heart: [place] heart Associated angina: angina presence unspecified Qualified Code(s): I25.10 - Atherosclerotic heart disease of [place] coronary artery without angina pectoris (6) DVT prophylaxis Current Visit: Yes Status: Acute Assessment and plan: With subcutaneous heparin - Subjective Interval history: Patient feels better currently. Pain is well controlled and his abdomen. Denies any new complaints at this time. Tolerating oral diet. Has been transitioned to a soft diet today. - Constitutional Vitals: Temp Pulse Resp BP Pulse Ox 97.9 F 70 14 122/68 97 07/14/16 11:04 07/14/16 14:01 07/14/16 14:01 07/14/16 14:01 07/14/16 14:01 General appearance: Present: cooperative, A&O X 3, no acute distress, answers questions appropriately - Neck Neck exam general surgery: Present: supple, trachea midline. Absent: lymphadenopathy - Respiratory Respiratory exam: Present: CTAB. Absent: accessory muscle use, rales, rhonchi, wheezes - Cardiovascular Cardiovascular exam: Present: RRR, +S1, +S2. Absent: diastolic murmur, gallop, rubs, systolic murmur - GI/Abdominal GI/Abdominal exam: Present: normal bowel sounds, soft, no peritoneal signs. Absent: distended, tenderness - Extremities Exam Extremities exam: Present: pedal edema, warm, radial pulses palpable and symetrical. Absent: calf tenderness, cyanotic - Skin Skin exam: Present: dry, intact Internal Medicine: Result - Labs CBC & Chem 7: 07/14/16 06:04 07/14/16 06:04 Labs: Short CBC 07/14/16 Range/Units 06:04 WBC 8.0 (4.3-11.1) K/mcL Hgb 9.2 L (12.9-16.9) g/dL Hct 28.4 L (37.5-50.1) % Plt Count 227 (140-400) K/mcL Neutrophils # 6.1 (1.6-8.9) K/mcL BMP 07/14/16 06:04 Sodium 141 Potassium 3.1 L Chloride 110 H Carbon Dioxide 24 BUN 18 Creatinine 1.12 Glucose 110 H Calcium 8.1 L - VTE Documentation of Mechanical Device: Intermittent pneumatic compression device Consult Discharge Plan - Plan Referrals: Tamera Portillo, DELIVERY LEAD [Primary Care Provider] -
[2016-07-15] MEDS: *HR* HYDROmorphone (PF) 1 MG/ML SYRINGE IVP PRN (04:23)
[2016-07-15 05:21] LABS: BUN/Creatinine Ratio 16 (6-26); Blood Urea Nitrogen 17 mg/dL (8-26); Calcium 8.1 mg/dL (8.6-10.8); Carbon Dioxide 22 mEq/L (19-29); Chloride 112 mEq/L (98-109); Glucose 120 mg/dL (70-99); Osmolality,Calculated 297 (280-300); Potassium 3.2 mEq/L (3.5-4.5); Sodium 142 mEq/L (136-145); eGFR For African Americans > 60 (> 60); eGFR For Non-African Americans > 60 (> 60)
[2016-07-15] MEDS: *HR* OxyCODONE/APAP 5/325 TABLET PO PRN ×2 (06:17→12:13)
[2016-07-15] MEDS: amLODIPine 5 MG TABLET PO SCH (09:12)
[2016-07-15] MEDS: Aspirin Enteric Coated 81 MG Tablet PO SCH (09:12)
[2016-07-15] MEDS: Potassium Chloride Elixir 20 MEQ/15 ML UDC PO SCH (09:13)
[2016-07-15] MEDS: *HR* Heparin 5,000 UNIT/ML VIAL SQ SCH (09:13)
[2016-07-15] MEDS: Acetaminophen 325 MG TABLET PO PRN (09:18)
[2016-07-15 12:40] VITALS: BP 137/75
--- NOTE | 2016-07-15 12:41 | General Surgery Progress Note ---
Date of Encounter: 07/15/16 Time of Encounter: 12:41 - Assessment and Plan (1) S/P right colectomy Current Visit: Yes Status: Acute POD #6 exploratory laparotomy with small bowel resection/Right colectomy soft diet, advance to regular diet pain control encourage ambulation supportive care Surgery will sign off at this time, thank you for involving us in this patient s care, please feel free to contact us with any questions. 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 Bauer, oncology, to see patient today before discharge (3) Hypokalemia Current Visit: Yes Status: Acute replaced per medicine team (4) Urinary retention Current Visit: Yes Status: Acute bladder scan ordered, straight cath before discharge if residual (5) Abdominal mass, RLQ (right lower quadrant) Current Visit: Yes Status: Acute (6) Leukocytosis Current Visit: Yes Status: Resolved resolved Qualifiers: Leukocytosis type: unspecified Qualified Code(s): D72.829 - Elevated white blood cell count, unspecified (7) Small bowel obstruction Current Visit: Yes Status: Resolved due to mass in RLQ - removed in surgery 07/08/2016 (8) Hypertension Current Visit: Yes Status: Chronic controlled Qualifiers: Hypertension type: essential hypertension Qualified Code(s): I10 - Essential (primary) hypertension (9) DVT prophylaxis Current Visit: Yes Status: Acute subcutaneous heparin 5,000 units for DVT prophylaxis (10) Chronic kidney disease, stage 3 Current Visit: Yes Status: Chronic (11) Coronary artery disease Current Visit: No Status: Chronic Qualifiers: Coronary Disease-Associated Artery/Lesion type: [place] artery [place] vs. transplanted heart: [place] heart Associated angina: angina presence unspecified Qualified Code(s): I25.10 - Atherosclerotic heart disease of [place] coronary artery without angina pectoris Subjective Patient reports: no new complaints, tolerating a regular diet, flatus, bowel movement, afebrile, other (states only urinating a small amount) Objective Vital Signs - Last 8 Hours Temp Pulse Resp BP Pulse Ox 07/15/16 07:43 98 F 79 16 110/68 95 07/15/16 04:56 97.8 F 63 18 120/65 96 Intake and Output 01/04/17 01/05/17 01/05/17 23:59 07:59 15:59 Intake Total 0 / 0 0 / 0 240 / 240 Output Total 0 / 0 0 / 0 Balance 0 / 0 0 / 0 240 / 240 Intake: Oral 0 / 0 0 / 0 240 / 240 Output: Urine 0 / 0 0 / 0 Other: Meal Breakfast Percent of Meal Consumed 100% # Voids 1 - General physical appearance well developed, well nourished, no distress - Eyes normal ocular movement - ENT normal mucosa, atraumatic, normocephalic - Neck Neck exam: trachea midline - Respiratory normal respiratory effort, clear to auscultation - Cardiovascular Cardiovascular exam: Present: RRR - Abdomen Abdomen: Present: bowel sounds present, soft, non tender - Integumentary no rash - Neurologic CN 2-12 grossly intact - Psychiatric oriented to time, oriented to person, oriented to place, speech is normal, memory intact - Labs 07/14/16 06:04 07/15/16 04:02 Diabetes panel 07/15/16 Range/Units 04:02 Sodium 142 (136-145) mEq/L Potassium 3.2 L (3.5-4.5) mEq/L Chloride 112 H (98-109) mEq/L Carbon Dioxide 22 (19-29) mEq/L BUN 17 (8-26) mg/dL Creatinine 1.09 (0.72-1.25) mg/dL Glucose 120 H (70-99) mg/dL Calcium 8.1 L (8.6-10.8) mg/dL Calcium panel 07/15/16 Range/Units 04:02 Calcium 8.1 L (8.6-10.8) mg/dL Pituitary panel 07/15/16 Range/Units 04:02 Sodium 142 (136-145) mEq/L Potassium 3.2 L (3.5-4.5) mEq/L Chloride 112 H (98-109) mEq/L Carbon Dioxide 22 (19-29) mEq/L BUN 17 (8-26) mg/dL Creatinine 1.09 (0.72-1.25) mg/dL Glucose 120 H (70-99) mg/dL Calcium 8.1 L (8.6-10.8) mg/dL Adrenal panel 07/15/16 Range/Units 04:02 Sodium 142 (136-145) mEq/L Potassium 3.2 L (3.5-4.5) mEq/L Chloride 112 H (98-109) mEq/L Carbon Dioxide 22 (19-29) mEq/L BUN 17 (8-26) mg/dL Creatinine 1.09 (0.72-1.25) mg/dL Glucose 120 H (70-99) mg/dL Calcium 8.1 L (8.6-10.8) mg/dL - VTE Documentation of Mechanical Device: Intermittent pneumatic compression device Consult Discharge Plan - Plan Referrals: Tamera Portillo, CRISELDA [Primary Care Provider] - Curt Becker DO [Partnered Physician] - 07/27/16 1:50 pm
--- NOTE | 2016-07-15 13:09 | Discharge Summary ---
<Britt Rouse - Last Filed: 07/15/16 13:04> Date of Encounter: 07/15/16 Time of Encounter: 11:35 - Discharge Diagnosis (1) Abdominal mass, RLQ (right lower quadrant) Priority: Primary Status: Acute Comments: s/p colectomy with small bowel resection and right colectomy (2) Carcinoid tumor Priority: Secondary Status: Acute (3) Chronic kidney disease, stage 3 Priority: Secondary Status: Chronic (4) Hypertension Priority: Secondary Status: Chronic Qualifiers: Hypertension type: essential hypertension Qualified Code(s): I10 - Essential (primary) hypertension (5) Small bowel obstruction Priority: Secondary Status: Resolved (6) Coronary artery disease Priority: Secondary Status: Chronic Qualifiers: Coronary Disease-Associated Artery/Lesion type: [place] artery [place] vs. transplanted heart: [place] heart Associated angina: angina presence unspecified Qualified Code(s): I25.10 - Atherosclerotic heart disease of [place] coronary artery without angina pectoris (7) DVT prophylaxis Priority: Secondary Status: Acute - Discharge Medications Prescriptions: OxyCODONE/APAP 5/325 [Percocet 5/325 MG] 1 each PO Q6HR PRN #29 tablet PRN Reason: Pain Docusate [Colace] 100 mg PO BID #28 capsule Home Medications: Amlodipine Besylate [Norvasc] 10 mg PO DAILY 02/20/15 [History] Aspirin Enteric Coated [Aspirin EC] 81 mg PO DAILY 02/20/15 [History] Carvedilol [Coreg] 25 mg PO BID 02/20/15 [History] Clopidogrel [Plavix] 75 mg PO DAILY 02/20/15 [History] Lisinopril [Zestril] 20 mg PO DAILY 02/20/15 [History] Pravastatin Sodium 20 mg PO DAILY 02/20/15 [History] Zolpidem Tartrate [Edluar] 5 mg PO HS 06/25/16 [History] Sennosides/Docusate Sodium [Senna Plus] 1 each PO BID #20 tablet 07/05/16 [Rx] Omeprazole [PriLOSEC] 40 mg PO DAILY 07/07/16 [History] Docusate [Colace] 100 mg PO BID #28 capsule 07/15/16 [Rx] OxyCODONE/APAP 5/325 [Percocet 5/325 MG] 1 each PO Q6HR PRN #29 tablet 07/15/16 [Rx] Allergies/Adverse Reactions: Allergies No Known Allergies Allergy (Verified 07/03/16 11:34) Date of admission: 07/08/16 09:48 Primary care physician: Tamera Portillo CNP Consults: 07/13/16 07:39 Consult to Merchandise Marker [CONS] Routine Reason for SW Consult: discharge planning 07/13/16 13:18 Consult to Occupational Therapy [CONS] Routine Comment: Evaluate, develop and implement POC Consult to Physical Therapy [CONS] Routine Comment: Evaluate, develop and implement POC Discharging clinician: Britt Rouse Anticipated date of discharge: 07/15/16 - Patient Status Disposition: Home, Self-Care Condition: Good - Discharge Instructions Follow Up With: Curt Becker DO [Partnered Physician] - 07/27/16 1:50 pm Tamera Portillo CNP [Primary Care Provider] - Additional Instructions: #1 May shower, no tub bath X 2 weeks #2 Wash incisions with soap and water and pat dry daily #3 No lifting/pushing/pulling greater than 15 lb. X 4 weeks #4 No driving until off narcotics and able to safely react in the car #5 May climb stairs Hospital course: Mr. Rivas is a 81 year old male istory of hypertension, coronary artery disease, who was admitted here for small bowel obstruction. He was managed conservatively initially kept nothing by mouth, given intravenous fluids and surgery was consulted. Initial CT scan showed a possible mass causing his small bowel obstruction. Patient then underwent exploratory laparotomy with right colectomy times partial small bowel resection with anastomosis of small bowel and transverse colon. The patient was then placed on TPN and slowly transitioned to clear liquid diet. He is now tolerating regular diet well without any complaints. 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 Oncology was consulted. They will also follow up with the patient after discharge. Patient was recommended home health by physical therapy but patient does not wish for any home health or physical therapy. He just wants to go home and has his son to care for him. - Time Spent with Patient Total time spent providing and/or coordinating discharge services: Greater than 30 minutes (40 min) - Constitutional Vitals: Temp Pulse Resp BP Pulse Ox 97.6 F 74 16 137/75 97 07/15/16 12:38 07/15/16 12:38 07/15/16 12:38 07/15/16 12:38 07/15/16 12:38 General appearance: Present: cooperative, A&O X 3, no acute distress, answers questions appropriately - VTE Documentation of Mechanical Device: Intermittent pneumatic compression device <ClaudiaSandi Maritza - Last Filed: 07/15/16 14:11> - Discharge Diagnosis (1) S/P right colectomy Status: Acute (2) Carcinomatosis Status: Acute (3) Hypokalemia Status: Acute (4) DVT prophylaxis Status: Acute Date of admission: 07/08/16 09:48 Primary care physician: Tamera Portillo CNP Consults: 07/13/16 07:39 Consult to Merchandise Marker [CONS] Routine Reason for SW Consult: discharge planning 07/13/16 13:18 Consult to Occupational Therapy [CONS] Routine Comment: Evaluate, develop and implement POC Consult to Physical Therapy [CONS] Routine Comment: Evaluate, develop and implement POC Hospital course: Mr. Rivas is a 81 year old male - Time Spent with Patient Total time spent providing and/or coordinating discharge services: - Constitutional Vitals: Temp Pulse Resp BP Pulse Ox 97.6 F 74 16 137/75 97 07/15/16 12:38 07/15/16 12:38 07/15/16 12:38 07/15/16 12:38 07/15/16 12:38 <Joie Austin - Last Filed: 07/15/16 15:00> - Discharge Diagnosis (1) S/P right colectomy Status: Acute (2) Carcinomatosis Status: Acute (3) Hypokalemia Status: Acute (4) Urinary retention Status: Acute (5) Abdominal mass, RLQ (right lower quadrant) Status: Acute (6) Leukocytosis Status: Resolved Qualifiers: Leukocytosis type: unspecified Qualified Code(s): D72.829 - Elevated white blood cell count, unspecified (7) Small bowel obstruction Status: Resolved (8) Hypertension Status: Chronic Qualifiers: Hypertension type: essential hypertension Qualified Code(s): I10 - Essential (primary) hypertension (9) DVT prophylaxis Status: Acute (10) Chronic kidney disease, stage 3 Status: Chronic (11) Coronary artery disease Status: Chronic Qualifiers: Coronary Disease-Associated Artery/Lesion type: [place] artery [place] vs. transplanted heart: [place] heart Associated angina: angina presence unspecified Qualified Code(s): I25.10 - Atherosclerotic heart disease of [place] coronary artery without angina pectoris Date of admission: 07/08/16 09:48 Primary care physician: Tamera Portillo CNP Consults: 07/13/16 07:39 Consult to Merchandise Marker [CONS] Routine Reason for SW Consult: discharge planning 07/13/16 13:18 Consult to Occupational Therapy [CONS] Routine Comment: Evaluate, develop and implement POC Consult to Physical Therapy [CONS] Routine Comment: Evaluate, develop and implement POC Hospital course: Mr. Rivas is a 81 year old male - Time Spent with Patient Total time spent providing and/or coordinating discharge services: - Constitutional Vitals: Temp Pulse Resp BP Pulse Ox 97.6 F 74 16 137/75 97 07/15/16 12:38 07/15/16 12:38 07/15/16 12:38 07/15/16 12:38 07/15/16 12:38
--- NOTE | 2016-07-15 17:05 | Oncology Inp Consult Note ---
Date of Encounter: 07/15/16 Time of Encounter: 17:00 Assessment and Plan (1) Abdominal mass, RLQ (right lower quadrant) Status: Acute Assessment and plan: Patient developed small bowel obstruction status post resection off neuroendocrine tumor and small bowel patient underwent extremely laparotomy and resection of small bowel and appendix right hemicolectomy tumor size at least 2.5 cm multifocal N out of 17 lymph nodes were positive mitotic index low Ki-67 of 8% well-differentiated neuroendocrine tumor grade 2. I had discussed results with the patient that it is not typical colon cancer and Dr. Bedoya suggestive of carcinoid which can be managed without chemotherapy. Family concerned about the discharge and dressing change addressed by nurse. They further had questions about what I had stated-which were addressed with the nurse assigned to him Will plan sandostatin/octerotide scan as outpatient. He would benefit from octreotide injections as outpatient after f/u. All of the above were discussed with patient, family and son who arrived later bedside. - Data of Consult Requesting Physician: Britt Rouse MD Primary Care Provider: Tamera Portillo CNP - Consult Narrative Reason for consult: carcinoid small bowels History of present illness: Mr. Rivas is a 81 year old male with medical history significant for abdominal aortic aneurysm, coronary artery disease, hypertension, peptic ulcer disease ischemic cardiomyopathy, seen in the emergency room with partial small bowel obstruction with abdominal pain. He denied any nausea or vomiting or fever. He has never had a colonoscopy before. Patient was seen and evaluated by surgery after CT scan findings that showed a Small bowel obstruction with transition point in the right lower quadrant. Dominant mesenteric mass was seen additional smaller masses. Patient underwent a A laparotomy and small bowel resection, right colectomy by Dr. Becker. The transverse colon with anastomosis [id number] fashion he does have some discharge from the wound site. 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 A CT scan of the abdomen did not show any liver lesions are metastatic disease elsewhere. Past Med Surg Social Fam HX - Past Medical History Medical history: cardiomyopathy, coronary artery disease, hypertension, myocardial infarction, other Psychiatric history: no psych history - Past Surgical History Surgical History: carotid endarterectomy - Social History Smoking Status: Former smoker Packs per day: 1 pack/day for 50 years. Quitted 14 years ago. Smokeless Tobacco Status: No Alcohol use: none Drug use: none, other - Family History Father Living Status: Hx Family Genitourinary Disorders: Yes (Kidney problem) Hx Family Medical Disorders: Yes (TB) Brother Hx Family Cardiac Disorders: Yes (heart disease) Hx Family Endocrine Disorder: Yes (DM) Medications and Allergies Amlodipine Besylate [Norvasc] 10 mg PO DAILY 02/20/15 [History] Aspirin Enteric Coated [Aspirin EC] 81 mg PO DAILY 02/20/15 [History] Carvedilol [Coreg] 25 mg PO BID 02/20/15 [History] Clopidogrel [Plavix] 75 mg PO DAILY 02/20/15 [History] Lisinopril [Zestril] 20 mg PO DAILY 02/20/15 [History] Pravastatin Sodium 20 mg PO DAILY 02/20/15 [History] Zolpidem Tartrate [Edluar] 5 mg PO HS 06/25/16 [History] Sennosides/Docusate Sodium [Senna Plus] 1 each PO BID #20 tablet 07/05/16 [Rx] Omeprazole [PriLOSEC] 40 mg PO DAILY 07/07/16 [History] Docusate [Colace] 100 mg PO BID #28 capsule 07/15/16 [Rx] OxyCODONE/APAP 5/325 [Percocet 5/325 MG] 1 each PO Q6HR PRN #29 tablet 07/15/16 [Rx] Allergies No Known Allergies Allergy (Verified 07/03/16 11:34) Review of systems: discharge noted in the abd, otherwise none Oncology - Exam - Constitutional Vitals: Temp Pulse Resp BP Pulse Ox 97.6 F 74 16 137/75 97 07/15/16 12:38 07/15/16 12:38 07/15/16 12:38 07/15/16 12:38 07/15/16 12:38 General appearance: average body habitus - Head Head exam: Present: atraumatic, normal inspection - Eye Eye exam: Present: sclera anicteric - ENT ENT exam: Present: mucous membranes moist - Neck Neck exam: Present: full ROM, normal inspection - Respiratory Respiratory exam: Present: CTAB - Cardiovascular Cardiovascular exam: Present: +S1, +S2 - GI/Abdominal GI/Abdominal exam: Present: normal bowel sounds, soft Additional comments: surgical site with seous discharge in dressing - Extremities Exam Extremities exam: Present: normal inspection Oncology - Results - Labs Labs: [facility] 07/15/16 04:02 Sodium 142 Potassium 3.2 L Chloride 112 H Carbon Dioxide 22 BUN 17 Creatinine 1.09 Glucose 120 H Calcium 8.1 L Consult Discharge Plan - Plan Additional Instructions: #1 May shower, no tub bath X 2 weeks #2 Wash incisions with soap and water and pat dry daily #3 No lifting/pushing/pulling greater than 15 lb. X 4 weeks #4 No driving until off narcotics and able to safely react in the car #5 May climb stairs Referrals: Curt Becker DO [Partnered Physician] - 07/27/16 1:50 pm Elio Bauer MD [Partnered Physician] - 07/28/16 3:00 pm Prescriptions: OxyCODONE/APAP 5/325 [Percocet 5/325 MG] 1 each PO Q6HR PRN #29 tablet PRN Reason: Pain Docusate [Colace] 100 mg PO BID #28 capsule
== END 2016-07-15 17:04 | disposition home or self-care (01) | DRG 330 ==
LOC: 3NENU 08:45 → EMEROO 08:45 → SUATTDRO 11:01 → 3NENU 11:46 → SUATTDRO 07-08 09:48 → 3ANU 07-09 19:02
PROVIDERS: ADMIT Internal Medicine; ATTEND Internal Medicine

== ENCOUNTER 2021-01-15 01:43 | Inpatient (IN) ==
[2021-01-15] MEDS ORDERED: Perflutren Lipid Microsphere 1.3 ML in 0.9 % Sodium Chloride 8.7 ML IVP PRN (04:26)
[2021-01-15] MEDS ORDERED: 0.9 % Sodium Chloride 1,000 ML IVC SCH (04:30)
[2021-01-15] MEDS ORDERED: Aspirin 325 MG TABLET PO ONE (06:05)
[2021-01-15 06:34] LABS: Basophils % 0.1 %; Hematocrit 32.9 % (37.5-50.1); Hemoglobin 10.6 g/dL (12.9-16.9); Immature Granulocytes % 0.3 % (0-4); Lymphocytes # 0.7 K/mcL (0.6-4.6); Lymphocytes % 5.8 %; Mean Corpuscular HGB Conc 32.2 g/dL (31.6-35.5); Mean Corpuscular Hemoglobin 29.7 pg (28.0-33.3); Mean Corpuscular Volume 92.2 fL (83.0-100.0); Mean Platelet Volume 11.3 fL (9.4-12.4); Monocytes # 0.8 K/mcL (0.0-1.3); Neutrophils # 9.7 K/mcL (1.6-8.9); Platelet Count 128 K/mcL (140-400); Red Blood Count 3.57 M/mcL (4.19-5.50); Red Cell Distribution Width 14.4 % (11.5-14.5); Segmented Neutrophils % 86.8 %; White Blood Count 11.2 K/mcL (4.3-11.1)
[2021-01-15 06:47] LABS: Albumin 3.3 g/dL (3.5-5.7); Albumin/Globulin Ratio 1.1 (1.1-2.2); Bilirubin,Total 0.3 mg/dL (0.3-1.0); Calcium 7.7 mg/dL (8.6-10.3); Total Protein 6.3 g/dL (6.4-8.9)
[2021-01-15 06:52] LABS: Troponin I 0.05 ng/mL (< 0.04)
[2021-01-15] MEDS ORDERED: 0.9 % Sodium Chloride 1,000 ML IVC ONE ×2 (08:39→20:16)
[2021-01-15] MEDS ORDERED: 0.9 % Sodium Chloride 1,000 ML ONE (08:40)
[2021-01-15 08:57] LABS: Adenovirus Not Detected (Not Detect); Bordetella Pertussis Not Detected (Not Detect); Chlamydophila pneumoniae Not Detected (Not Detect); Coronavirus 229E Not Detected (Not Detect); Coronavirus HKU1 Not Detected (Not Detect); Coronavirus NL63 Not Detected (Not Detect); Coronavirus OC43 Not Detected (Not Detect); Human Metapneumovirus Not Detected (Not Detect); Human Rhinovirus/Enterovirus Not Detected (Not Detect); Influenza A Subtype 2009 H1 Not Detected (Not Detect); Influenza B Not Detected (Not Detect); Mycoplasma pneumoniae Not Detected (Not Detect); Parainfluenza Virus 1 Not Detected (Not Detect); Parainfluenza Virus 2 Not Detected (Not Detect); Parainfluenza Virus 3 Not Detected (Not Detect); Parainfluenza Virus 4 Not Detected (Not Detect); Respiratory Syncytial Virus Not Detected (Not Detect); SARS-CoV-2 Not Detected (Not Detect)
[2021-01-15] MEDS ORDERED: Morphine Sulfate 2 MG/ML SYRINGE IVP ONE (09:25)
[2021-01-15] MEDS ORDERED: Chloraseptic Spray 177 ML BOTTLE MM PRN (09:55)
[2021-01-15 10:48] LABS: Uric Acid 9.7 mg/dL (2.3-7.6)
[2021-01-15] MEDS: 0.9 % Sodium Chloride 1,000 ML IVC SCH ×2 (11:38→21:37)
[2021-01-15 15:56] LABS: Sodium, Urine 19.7 mEq/L
[2021-01-15 15:59] LABS: Bilirubin,Urine Negative (Negative); Blood,Urine Negative (Negative); Clarity,Urine Clear (Clear); Color,Urine Light-Yellow (Yellow); Glucose,Urine (UA) Normal (Normal); Hyaline Casts,Urine Few per lpf (None Seen); Ketones,Urine Negative (Negative); Leukocyte Esterase,Urine Negative (Negative); Mucus,Urine Few per lpf (None-Few); Nitrite,Urine Negative (Negative); PH,Urine 5.5 pH Units (5.0-8.0); Protein,Urine 50 mg/dL (Neg-Trace); RBC,Urine 0-3 per hpf (0-3); Specific Gravity,Urine 1.018 (1.010-1.025); Squamous Epithelial Cell,Urine Few per hpf (None-Few); Urobilinogen,Urine Normal (Normal); WBC,Urine 0-3 per hpf (0-3)
[2021-01-15] MEDS: *HR* Heparin 5,000 UNIT/ML VIAL SQ SCH (18:57)
[2021-01-16] MEDS ORDERED: Melatonin 3 MG TABLET PO PRN (01:06)
[2021-01-16] MEDS: QUEtiapine Fumarate 25 MG TABLET PO PRN ×2 (03:24→21:57)
[2021-01-16 05:29] LABS: INR 1.2; Prothrombin Time 13.5 Seconds (9.4-12.1)
[2021-01-16] MEDS: *HR* Heparin 5,000 UNIT/ML VIAL SQ SCH ×2 (05:41→17:07)
[2021-01-16 05:45] LABS: Albumin 3.1 g/dL (3.5-5.7); Albumin/Globulin Ratio 1.1 (1.1-2.2); Bilirubin,Total 0.3 mg/dL (0.3-1.0); Chol/HDL Ratio 3.5 (0-4.9); Globulin 2.7 g/dL (2.4-3.5); Potassium 5.3 mEq/L (3.5-5.1); Total Protein 5.8 g/dL (6.4-8.9); Troponin I 0.07 ng/mL (< 0.04)
[2021-01-16 06:07] LABS: Estimated Average Glucose 128 mg/dl; Hemoglobin A1C 6.1 %
[2021-01-16] MEDS ORDERED: CALCIUM CITRATE 200 MG PO SCH (09:00)
[2021-01-16] MEDS: Cholecalciferol (D-3) 1,000 UNIT (25MCG) TABLET PO SCH ×2 (09:40→09:58)
[2021-01-16] MEDS: Aspirin Enteric Coated 81 MG Tablet PO SCH ×2 (09:40→09:57)
[2021-01-16] MEDS: Hyoscyamine SL 0.125 MG TAB.SUBL PO SCH ×5 (09:40→20:49)
[2021-01-16] MEDS: 0.9 % Sodium Chloride 1,000 ML IVC SCH (09:41)
[2021-01-16] MEDS ORDERED: Dextrose Gel 15 GM/37.5 ML TUBE PO PRN ×2 (11:58)
[2021-01-16] MEDS ORDERED: D5% in Water 1,000 ML IVC PRN (11:58)
[2021-01-16] MEDS ORDERED: *HR* Dextrose 50 % in Water (Vial) 50 ML VIAL IVP PRN (11:58)
[2021-01-16] MEDS ORDERED: Sodium Bicarbonate 75 MEQ in 0.45 % Sodium Chloride 1,000 ML IVC SCH (13:30)
[2021-01-17] MEDS: *HR* Heparin 5,000 UNIT/ML VIAL SQ SCH ×2 (04:57→16:59)
[2021-01-17] MEDS: Aspirin Enteric Coated 81 MG Tablet PO SCH (08:15)
[2021-01-17] MEDS: Hyoscyamine SL 0.125 MG TAB.SUBL PO SCH ×4 (08:16→20:14)
[2021-01-17] MEDS: Cholecalciferol (D-3) 1,000 UNIT (25MCG) TABLET PO SCH (08:16)
[2021-01-17 08:20] LABS: Basophils % 0.4 %; Eosinophils % 0.5 %; Hematocrit 30.1 % (37.5-50.1); Hemoglobin 9.7 g/dL (12.9-16.9); Immature Granulocytes % 0.4 % (0-4); Lymphocytes # 0.7 K/mcL (0.6-4.6); Lymphocytes % 11.6 %; Mean Corpuscular HGB Conc 32.2 g/dL (31.6-35.5); Mean Corpuscular Volume 89.9 fL (83.0-100.0); Mean Platelet Volume 10.7 fL (9.4-12.4); Monocytes # 0.6 K/mcL (0.0-1.3); Monocytes % 10.2 %; Neutrophils # 4.4 K/mcL (1.6-8.9); Platelet Count 133 K/mcL (140-400); Red Blood Count 3.35 M/mcL (4.19-5.50); Red Cell Distribution Width 14.5 % (11.5-14.5); Segmented Neutrophils % 76.9 %; White Blood Count 5.7 K/mcL (4.3-11.1)
[2021-01-17 08:33] LABS: Calcium 8.2 mg/dL (8.6-10.3); Potassium 5.3 mEq/L (3.5-5.1)
[2021-01-17] MEDS ORDERED: Sodium Bicarbonate 75 MEQ in 0.45 % Sodium Chloride 1,000 ML IVC SCH (09:00)
[2021-01-17] MEDS ORDERED: Sodium Bicarbonate 150 MEQ in D5% in Water 1,000 ML IVC PRN (11:37)
[2021-01-17] MEDS ORDERED: Sodium Bicarbonate 150 MEQ in D5% in Water 1,000 ML IVC SCH (12:00)
[2021-01-17] MEDS ORDERED: Bisacodyl 10 MG RECTAL SUPPOSITORY RC ONE (18:12)
[2021-01-17] MEDS: Sennosides/Docusate Sodium TABLET PO SCH (20:13)
[2021-01-17] MEDS: QUEtiapine Fumarate 25 MG TABLET PO PRN (20:14)
[2021-01-18 02:39] LABS: Basophils % 0.1 %; Eosinophils % 0.3 %; Hematocrit 27.5 % (37.5-50.1); Immature Granulocytes % 0.4 % (0-4); Lymphocytes # 0.7 K/mcL (0.6-4.6); Lymphocytes % 10.2 %; Mean Corpuscular HGB Conc 32.7 g/dL (31.6-35.5); Mean Corpuscular Hemoglobin 29.1 pg (28.0-33.3); Mean Platelet Volume 10.5 fL (9.4-12.4); Monocytes # 0.6 K/mcL (0.0-1.3); Monocytes % 8.6 %; Neutrophils # 5.5 K/mcL (1.6-8.9); Platelet Count 138 K/mcL (140-400); Red Blood Count 3.09 M/mcL (4.19-5.50); Red Cell Distribution Width 14.5 % (11.5-14.5); Segmented Neutrophils % 80.4 %; White Blood Count 6.9 K/mcL (4.3-11.1)
[2021-01-18 03:03] LABS: Calcium 7.9 mg/dL (8.6-10.3); Potassium 4.9 mEq/L (3.5-5.1)
[2021-01-18] MEDS: *HR* Heparin 5,000 UNIT/ML VIAL SQ SCH ×2 (06:25→16:25)
[2021-01-18] MEDS: Sennosides/Docusate Sodium TABLET PO SCH ×2 (09:32→23:18)
[2021-01-18] MEDS: Hyoscyamine SL 0.125 MG TAB.SUBL PO SCH ×4 (09:32→23:19)
[2021-01-18] MEDS: Aspirin Enteric Coated 81 MG Tablet PO SCH (09:32)
[2021-01-18] MEDS: Cholecalciferol (D-3) 1,000 UNIT (25MCG) TABLET PO SCH (09:32)
[2021-01-18] MEDS ORDERED: Acetaminophen 325 MG TABLET PO PRN (16:43)
[2021-01-18] MEDS: *HR* HYDROcodone/Acet 5/325 mg TABLET PO PRN ×2 (17:05→23:16)
[2021-01-19] MEDS ORDERED: Sodium Bicarbonate 150 MEQ in D5% in Water 1,000 ML IVC SCH (05:00)
[2021-01-19 06:13] LABS: Basophils % 0.2 %; Eosinophils # 0.1 K/mcL (0.0-0.6); Eosinophils % 1.6 %; Hematocrit 27.9 % (37.5-50.1); Immature Granulocytes % 0.9 % (0-4); Lymphocytes # 0.9 K/mcL (0.6-4.6); Lymphocytes % 20.2 %; Mean Corpuscular HGB Conc 32.3 g/dL (31.6-35.5); Mean Corpuscular Hemoglobin 28.8 pg (28.0-33.3); Mean Corpuscular Volume 89.4 fL (83.0-100.0); Mean Platelet Volume 11.1 fL (9.4-12.4); Monocytes # 0.5 K/mcL (0.0-1.3); Monocytes % 12.7 %; Neutrophils # 2.7 K/mcL (1.6-8.9); Platelet Count 135 K/mcL (140-400); Red Blood Count 3.12 M/mcL (4.19-5.50); Red Cell Distribution Width 14.3 % (11.5-14.5); Segmented Neutrophils % 64.4 %; White Blood Count 4.3 K/mcL (4.3-11.1)
[2021-01-19 06:20] LABS: Calcium 7.7 mg/dL (8.6-10.3); Potassium 4.2 mEq/L (3.5-5.1)
[2021-01-19] MEDS: *HR* Heparin 5,000 UNIT/ML VIAL SQ SCH ×2 (06:44→23:23)
[2021-01-19] MEDS: Cholecalciferol (D-3) 1,000 UNIT (25MCG) TABLET PO SCH (09:24)
[2021-01-19] MEDS: Sennosides/Docusate Sodium TABLET PO SCH ×2 (09:24→23:20)
[2021-01-19] MEDS: Hyoscyamine SL 0.125 MG TAB.SUBL PO SCH ×4 (09:24→23:21)
[2021-01-19] MEDS: Aspirin Enteric Coated 81 MG Tablet PO SCH (09:24)
[2021-01-20] MEDS: *HR* Heparin 5,000 UNIT/ML VIAL SQ SCH (06:13)
[2021-01-20 07:34] VITALS: O2SAT 94
[2021-01-20 07:37] VITALS: BP 137/79; PULSE 85; TEMP 98.1
[2021-01-20 07:50] LABS: Basophils % 0.4 %; Eosinophils # 0.1 K/mcL (0.0-0.6); Eosinophils % 1.1 %; Hematocrit 28.7 % (37.5-50.1); Hemoglobin 9.4 g/dL (12.9-16.9); Immature Granulocytes % 1.1 % (0-4); Lymphocytes # 0.7 K/mcL (0.6-4.6); Lymphocytes % 12.4 %; Mean Corpuscular HGB Conc 32.8 g/dL (31.6-35.5); Mean Corpuscular Hemoglobin 29.7 pg (28.0-33.3); Mean Corpuscular Volume 90.8 fL (83.0-100.0); Mean Platelet Volume 11.1 fL (9.4-12.4); Monocytes # 0.6 K/mcL (0.0-1.3); Monocytes % 10.6 %; Neutrophils # 4.2 K/mcL (1.6-8.9); Platelet Count 152 K/mcL (140-400); Red Blood Count 3.16 M/mcL (4.19-5.50); Red Cell Distribution Width 14.5 % (11.5-14.5); Segmented Neutrophils % 74.4 %; White Blood Count 5.7 K/mcL (4.3-11.1)
[2021-01-20] MEDS: Aspirin Enteric Coated 81 MG Tablet PO SCH (08:05)
[2021-01-20] MEDS: Cholecalciferol (D-3) 1,000 UNIT (25MCG) TABLET PO SCH (08:05)
[2021-01-20] MEDS: Sennosides/Docusate Sodium TABLET PO SCH (08:05)
[2021-01-20] MEDS: Hyoscyamine SL 0.125 MG TAB.SUBL PO SCH (08:05)
[2021-01-20 08:17] LABS: Calcium 7.8 mg/dL (8.6-10.3); Potassium 3.7 mEq/L (3.5-5.1)
== END 2021-01-20 14:58 | disposition home or self-care (01) | DRG 682 ==
LOC: 2NENU → SUATTDRO 03:12 → 2NENU 01-17 11:17
PROVIDERS: ADMIT Family Medicine; ATTEND Internal Medicine

== ENCOUNTER 2021-02-24 18:53 | Inpatient (IN) ==
[2021-02-25] MEDS ORDERED: Povidone-Iodine 45 ML, Sodium Chloride IRRigation 1,000 ML IR ONE (07:45)
[2021-02-25] MEDS ORDERED: TOTAL JOINT MIXTURE (100ML) INTRAART ONE (07:45)
[2021-02-25] MEDS ORDERED: Naloxone 0.4 MG/ML INJ IVP PRN (07:51)
[2021-02-25] MEDS ORDERED: Acetaminophen 325 MG TABLET PO PRN (07:51)
[2021-02-25] MEDS ORDERED: Ondansetron 4 MG/2 ML VIAL IVP PRN (07:51)
[2021-02-25 09:06] LABS: Basophils % 0.3 %; Eosinophils % 0.4 %; Hematocrit 34.5 % (37.5-50.1); Hemoglobin 11.2 g/dL (12.9-16.9); Immature Granulocytes % 0.7 % (0-4); Mean Corpuscular HGB Conc 32.5 g/dL (31.6-35.5); Mean Corpuscular Hemoglobin 29.6 pg (28.0-33.3); Mean Platelet Volume 11.6 fL (9.4-12.4); Monocytes # 0.7 K/mcL (0.0-1.3); Monocytes % 7.2 %; Neutrophils # 8.1 K/mcL (1.6-8.9); Platelet Count 148 K/mcL (140-400); Red Blood Count 3.79 M/mcL (4.19-5.50); Red Cell Distribution Width 15.6 % (11.5-14.5); Segmented Neutrophils % 81.4 %; White Blood Count 9.9 K/mcL (4.3-11.1)
[2021-02-25 09:11] LABS: INR 1.1
[2021-02-25 09:25] LABS: Calcium 8.1 mg/dL (8.6-10.3); Potassium 4.1 mEq/L (3.5-5.1)
[2021-02-25] MEDS ORDERED: Hyoscyamine SL 0.125 MG TAB.SUBL PO PRN (16:18)
[2021-02-25] MEDS: Famotidine 20 MG TABLET PO SCH (20:58)
[2021-02-26 01:28] LABS: Basophils % 0.2 %; Eosinophils % 0.1 %; Hematocrit 32.6 % (37.5-50.1); Hemoglobin 10.4 g/dL (12.9-16.9); Immature Granulocytes % 0.7 % (0-4); Lymphocytes # 0.8 K/mcL (0.6-4.6); Lymphocytes % 8.3 %; Mean Corpuscular HGB Conc 31.9 g/dL (31.6-35.5); Mean Corpuscular Hemoglobin 29.1 pg (28.0-33.3); Mean Corpuscular Volume 91.3 fL (83.0-100.0); Mean Platelet Volume 11.8 fL (9.4-12.4); Monocytes # 0.6 K/mcL (0.0-1.3); Platelet Count 151 K/mcL (140-400); Red Blood Count 3.57 M/mcL (4.19-5.50); Red Cell Distribution Width 15.8 % (11.5-14.5); Segmented Neutrophils % 84.7 %; White Blood Count 9.5 K/mcL (4.3-11.1)
[2021-02-26 01:45] LABS: Calcium 7.9 mg/dL (8.6-10.3); Magnesium 1.7 mg/dL (1.6-2.6)
[2021-02-26] MEDS ORDERED: Aspirin Enteric Coated 81 MG Tablet PO SCH (09:00)
[2021-02-26] MEDS ORDERED: Vancomycin 1,000 MG VIAL ONE ×2 (10:58→14:07)
[2021-02-26] MEDS ORDERED: *HR* FentaNYL (PF) 100 MCG/2 ML VIAL ONE (11:13)
[2021-02-26] MEDS ORDERED: *HR* Propofol 200 MG/20 ML VIAL IVP ONE ×2 (11:38→11:39)
[2021-02-26] MEDS ORDERED: *HR* Rocuronium Bromide 50 MG/5 ML VIAL ONE (11:39)
[2021-02-26] MEDS ORDERED: Ondansetron 4 MG/2 ML VIAL ONE (11:39)
[2021-02-26] MEDS ORDERED: *HR* Succinylcholine 200 MG/10 ML VIAL IVP ONE (11:39)
[2021-02-26] MEDS ORDERED: Lidocaine HCL 4 ML Topical Solution (Laryng-O-Jet Kit Sterile Pak) TP ONE (11:39)
[2021-02-26] MEDS: amLODIPine 5 MG TABLET PO SCH (11:46)
[2021-02-26] MEDS: lisinopriL 20 MG TABLET PO SCH (11:46)
[2021-02-26] MEDS: Magnesium Oxide 400 MG TABLET PO SCH (11:46)
[2021-02-26] MEDS: Cholecalciferol (D-3) 1,000 UNIT (25MCG) TABLET PO SCH (11:46)
[2021-02-26] MEDS ORDERED: TOTAL JOINT MIXTURE (100ML) INTRAART ONE (12:00)
[2021-02-26] MEDS ORDERED: Povidone-Iodine 45 ML, Sodium Chloride IRRigation 1,000 ML IR ONE (12:00)
[2021-02-26] MEDS ORDERED: Acetaminophen IV 1,000 MG/100 ML BAG IVPB PRN (12:31)
[2021-02-26] MEDS ORDERED: *HR* FentaNYL (PF) 100 MCG/2 ML VIAL IVP PRN (12:31)
[2021-02-26] MEDS ORDERED: Ondansetron 4 MG/2 ML VIAL IVP PRN ×2 (12:31→20:14)
[2021-02-26] MEDS ORDERED: Tranexamic Acid 1,000 MG/10 ML VIAL ONE (12:36)
[2021-02-26] MEDS ORDERED: EPHEDrine 50 MG/ML VIAL ONE (12:55)
[2021-02-26] MEDS ORDERED: *HR* Vasopressin 20 UNIT/ML VIAL ONE (13:08)
[2021-02-26] MEDS ORDERED: Tobramycin Sulf (Sterile) 1.2 GM VIAL ONE (14:07)
[2021-02-26] MEDS ORDERED: Sugammadex Sodium 200 MG/2 ML VIAL IV ONE (15:12)
[2021-02-26] MEDS: Famotidine 20 MG TABLET PO SCH (19:59)
[2021-02-26] MEDS ORDERED: Sennosides 8.6 MG TABLET PO PRN (20:14)
[2021-02-26] MEDS ORDERED: Naloxone 0.4 MG/ML INJ IVP PRN (20:14)
[2021-02-26] MEDS ORDERED: *HR* Promethazine 25 MG/ML VIAL IM PRN (20:14)
[2021-02-26] MEDS ORDERED: MOM Conc 10 ML UD.LIQ PO PRN (20:14)
[2021-02-26] MEDS ORDERED: Ringers Solution, Lactated 1,000 ML IVC SCH (20:15)
[2021-02-27] MEDS: CeFAZolin 2 GM/120 ML BAG IVPB SCH ×2 (01:55→10:31)
[2021-02-27] MEDS: Multivit/Ca/Min/Fe/FA 1 TAB TABLET PO SCH (08:53)
[2021-02-27] MEDS: Magnesium Oxide 400 MG TABLET PO SCH (08:53)
[2021-02-27] MEDS: Cholecalciferol (D-3) 1,000 UNIT (25MCG) TABLET PO SCH (08:54)
[2021-02-27] MEDS: Ascorbic Acid 500 MG TABLET PO SCH ×2 (08:54→17:33)
[2021-02-27] MEDS: lisinopriL 20 MG TABLET PO SCH (08:54)
[2021-02-27] MEDS: amLODIPine 5 MG TABLET PO SCH (09:05)
[2021-02-27 09:57] LABS: Basophils % 0.1 %; Hematocrit 26.9 % (37.5-50.1); Hemoglobin 8.6 g/dL (12.9-16.9); Immature Granulocytes % 0.6 % (0-4); Lymphocytes # 0.9 K/mcL (0.6-4.6); Lymphocytes % 9.2 %; Mean Corpuscular Hemoglobin 29.6 pg (28.0-33.3); Mean Corpuscular Volume 92.4 fL (83.0-100.0); Mean Platelet Volume 11.2 fL (9.4-12.4); Monocytes # 0.9 K/mcL (0.0-1.3); Monocytes % 8.7 %; Neutrophils # 8.3 K/mcL (1.6-8.9); Platelet Count 143 K/mcL (140-400); Red Blood Count 2.91 M/mcL (4.19-5.50); Red Cell Distribution Width 15.6 % (11.5-14.5); Segmented Neutrophils % 81.4 %; White Blood Count 10.2 K/mcL (4.3-11.1)
[2021-02-27 10:43] LABS: Calcium 7.4 mg/dL (8.6-10.3); Magnesium 1.7 mg/dL (1.6-2.6); Phosphorous 4.2 mg/dL (2.7-4.5); Potassium 5.1 mEq/L (3.5-5.1)
[2021-02-27] MEDS ORDERED: lisinopriL 20 MG TABLET PO SCH (14:25)
[2021-02-27] MEDS ORDERED: amLODIPine 5 MG TABLET PO SCH (14:25)
[2021-02-27] MEDS: Famotidine 20 MG TABLET PO SCH (22:01)
[2021-02-27] MEDS: Aspirin Enteric Coated 81 MG Tablet PO SCH (22:01)
[2021-02-28] MEDS: Cholecalciferol (D-3) 1,000 UNIT (25MCG) TABLET PO SCH (08:40)
[2021-02-28] MEDS: Aspirin Enteric Coated 81 MG Tablet PO SCH (08:40)
[2021-02-28] MEDS: Magnesium Oxide 400 MG TABLET PO SCH (08:40)
[2021-02-28] MEDS: Multivit/Ca/Min/Fe/FA 1 TAB TABLET PO SCH (08:40)
[2021-02-28] MEDS: Ascorbic Acid 500 MG TABLET PO SCH ×2 (08:41→16:25)
[2021-02-28 13:24] LABS: Basophils % 0.1 %; Eosinophils % 0.1 %; Hemoglobin 8.6 g/dL (12.9-16.9); Immature Granulocytes % 0.7 % (0-4); Lymphocytes # 0.6 K/mcL (0.6-4.6); Lymphocytes % 7.2 %; Mean Corpuscular HGB Conc 31.9 g/dL (31.6-35.5); Mean Corpuscular Hemoglobin 29.2 pg (28.0-33.3); Mean Corpuscular Volume 91.5 fL (83.0-100.0); Mean Platelet Volume 11.4 fL (9.4-12.4); Monocytes # 0.7 K/mcL (0.0-1.3); Monocytes % 7.8 %; Neutrophils # 7.1 K/mcL (1.6-8.9); Platelet Count 131 K/mcL (140-400); Red Blood Count 2.95 M/mcL (4.19-5.50); Red Cell Distribution Width 15.5 % (11.5-14.5); Segmented Neutrophils % 84.1 %; White Blood Count 8.5 K/mcL (4.3-11.1)
[2021-02-28 13:35] LABS: Calcium 7.5 mg/dL (8.6-10.3); Magnesium 1.8 mg/dL (1.6-2.6); Phosphorous 2.9 mg/dL (2.7-4.5); Potassium 4.5 mEq/L (3.5-5.1)
[2021-02-28] MEDS: Famotidine 20 MG TABLET PO SCH (19:59)
[2021-03-01 02:31] LABS: Hematocrit 21.1 % (37.5-50.1); Hemoglobin 7.1 g/dL (12.9-16.9)
[2021-03-01 02:54] LABS: Phosphorous 2.6 mg/dL (2.7-4.5); Potassium 3.9 mEq/L (3.5-5.1)
[2021-03-01] MEDS: Aspirin Enteric Coated 81 MG Tablet PO SCH (07:36)
[2021-03-01] MEDS: Magnesium Oxide 400 MG TABLET PO SCH (07:38)
[2021-03-01] MEDS: Cholecalciferol (D-3) 1,000 UNIT (25MCG) TABLET PO SCH (07:38)
[2021-03-01] MEDS: Ascorbic Acid 500 MG TABLET PO SCH ×2 (07:39→17:45)
[2021-03-01] MEDS: Multivit/Ca/Min/Fe/FA 1 TAB TABLET PO SCH (07:39)
[2021-03-01] MEDS: amLODIPine 5 MG TABLET PO SCH (07:43)
[2021-03-01 09:46] LABS: Hematocrit 28.3 % (37.5-50.1)
[2021-03-01 09:47] LABS: Hemoglobin 8.9 g/dL (12.9-16.9)
[2021-03-01] MEDS: Famotidine 20 MG TABLET PO SCH (20:38)
[2021-03-01 23:10] LABS: Hematocrit 23.6 % (37.5-50.1); Hemoglobin 7.7 g/dL (12.9-16.9)
[2021-03-02 06:02] LABS: Eosinophils % 0.3 %; Hematocrit 21.2 % (37.5-50.1); Hemoglobin 7.1 g/dL (12.9-16.9); Immature Granulocytes % 0.5 % (0-4); Lymphocytes # 0.7 K/mcL (0.6-4.6); Lymphocytes % 7.6 %; Mean Corpuscular HGB Conc 33.5 g/dL (31.6-35.5); Mean Corpuscular Hemoglobin 29.6 pg (28.0-33.3); Mean Corpuscular Volume 88.3 fL (83.0-100.0); Mean Platelet Volume 11.2 fL (9.4-12.4); Monocytes # 0.7 K/mcL (0.0-1.3); Monocytes % 7.7 %; Neutrophils # 8.1 K/mcL (1.6-8.9); Platelet Count 132 K/mcL (140-400); Red Cell Distribution Width 15.1 % (11.5-14.5); Segmented Neutrophils % 83.9 %; White Blood Count 9.6 K/mcL (4.3-11.1)
[2021-03-02 06:25] LABS: Calcium 6.9 mg/dL (8.6-10.3); Magnesium 1.6 mg/dL (1.6-2.6); Potassium 3.9 mEq/L (3.5-5.1)
[2021-03-02] MEDS: Cholecalciferol (D-3) 1,000 UNIT (25MCG) TABLET PO SCH (09:04)
[2021-03-02] MEDS: amLODIPine 5 MG TABLET PO SCH (09:04)
[2021-03-02] MEDS: Ascorbic Acid 500 MG TABLET PO SCH ×2 (09:05→17:19)
[2021-03-02] MEDS: Multivit/Ca/Min/Fe/FA 1 TAB TABLET PO SCH (09:05)
[2021-03-02] MEDS: Aspirin Enteric Coated 81 MG Tablet PO SCH (09:05)
[2021-03-02] MEDS: Magnesium Oxide 400 MG TABLET PO SCH (09:53)
[2021-03-02 13:12] LABS: Hemoglobin 7.3 g/dL (12.9-16.9)
[2021-03-02] MEDS ORDERED: 0.9 % Sodium Chloride 250 ML IVC ONE (15:56)
[2021-03-02] MEDS ORDERED: 0.9 % Sodium Chloride 500 ML IVC SCH (16:00)
[2021-03-02 16:29] LABS: Hematocrit 22.1 % (37.5-50.1); Hemoglobin 7.1 g/dL (12.9-16.9)
[2021-03-02] MEDS ORDERED: 0.9 % Sodium Chloride 250 ML IVC SCH (17:45)
[2021-03-02] MEDS ORDERED: 0.9 % Sodium Chloride 250 ML ONE (20:24)
[2021-03-02] MEDS: Famotidine 20 MG TABLET PO SCH (21:15)
[2021-03-03 03:01] LABS: Basophils % 0.2 %; Eosinophils % 0.1 %; Hematocrit 22.6 % (37.5-50.1); Hemoglobin 7.6 g/dL (12.9-16.9); Lymphocytes # 0.9 K/mcL (0.6-4.6); Lymphocytes % 7.2 %; Mean Corpuscular HGB Conc 33.6 g/dL (31.6-35.5); Mean Corpuscular Hemoglobin 29.9 pg (28.0-33.3); Mean Platelet Volume 11.1 fL (9.4-12.4); Monocytes % 8.3 %; Neutrophils # 9.9 K/mcL (1.6-8.9); Platelet Count 128 K/mcL (140-400); Red Blood Count 2.54 M/mcL (4.19-5.50); Red Cell Distribution Width 14.9 % (11.5-14.5); Segmented Neutrophils % 83.2 %; White Blood Count 11.9 K/mcL (4.3-11.1)
[2021-03-03 03:27] LABS: Calcium 6.9 mg/dL (8.6-10.3); Magnesium 1.6 mg/dL (1.6-2.6); Phosphorous 2.6 mg/dL (2.7-4.5); Potassium 4.1 mEq/L (3.5-5.1)
[2021-03-03] MEDS: Aspirin Enteric Coated 81 MG Tablet PO SCH (07:53)
[2021-03-03] MEDS: Multivit/Ca/Min/Fe/FA 1 TAB TABLET PO SCH (07:54)
[2021-03-03] MEDS: Ascorbic Acid 500 MG TABLET PO SCH ×2 (07:54→17:00)
[2021-03-03] MEDS: Magnesium Oxide 400 MG TABLET PO SCH (07:54)
[2021-03-03] MEDS: Cholecalciferol (D-3) 1,000 UNIT (25MCG) TABLET PO SCH (07:54)
[2021-03-03] MEDS: amLODIPine 5 MG TABLET PO SCH (07:55)
[2021-03-03] MEDS ORDERED: 0.9 % Sodium Chloride 1,000 ML IVC SCH (10:00)
[2021-03-03 10:50] LABS: Hematocrit 22.7 % (37.5-50.1); Hemoglobin 7.4 g/dL (12.9-16.9)
[2021-03-03 16:32] LABS: Hematocrit 21.5 % (37.5-50.1); Hemoglobin 7.1 g/dL (12.9-16.9)
[2021-03-03] MEDS: Famotidine 20 MG TABLET PO SCH (22:16)
[2021-03-03 22:45] LABS: Hematocrit 20.9 % (37.5-50.1); Hemoglobin 6.8 g/dL (12.9-16.9)
[2021-03-04] MEDS: Cholecalciferol (D-3) 1,000 UNIT (25MCG) TABLET PO SCH (09:01)
[2021-03-04] MEDS: Magnesium Oxide 400 MG TABLET PO SCH (09:02)
[2021-03-04] MEDS: Multivit/Ca/Min/Fe/FA 1 TAB TABLET PO SCH (09:02)
[2021-03-04] MEDS: Aspirin Enteric Coated 81 MG Tablet PO SCH (09:02)
[2021-03-04] MEDS: Ascorbic Acid 500 MG TABLET PO SCH ×2 (09:02→16:57)
[2021-03-04 09:42] LABS: Basophils % 0.2 %; Eosinophils % 0.3 %; Hematocrit 30.9 % (37.5-50.1); Lymphocytes % 8.8 %; Mean Corpuscular HGB Conc 32.7 g/dL (31.6-35.5); Mean Corpuscular Hemoglobin 29.7 pg (28.0-33.3); Mean Corpuscular Volume 90.9 fL (83.0-100.0); Mean Platelet Volume 11.1 fL (9.4-12.4); Monocytes # 0.8 K/mcL (0.0-1.3); Monocytes % 6.8 %; Neutrophils # 9.3 K/mcL (1.6-8.9); Platelet Count 152 K/mcL (140-400); Red Cell Distribution Width 15.9 % (11.5-14.5); Segmented Neutrophils % 82.9 %; White Blood Count 11.2 K/mcL (4.3-11.1)
[2021-03-04 09:47] LABS: Hemoglobin 10.1 g/dL (12.9-16.9)
[2021-03-04 10:02] LABS: Calcium 7.3 mg/dL (8.6-10.3); Magnesium 1.7 mg/dL (1.6-2.6); Phosphorous 2.2 mg/dL (2.7-4.5)
[2021-03-04 10:08] LABS: Bilirubin,Urine Negative (Negative); Blood,Urine Negative (Negative); Clarity,Urine Clear (Clear); Color,Urine Yellow (Yellow); Glucose,Urine (UA) Normal (Normal); Ketones,Urine Negative (Negative); Leukocyte Esterase,Urine Negative (Negative); Mucus,Urine Few per lpf (None-Few); Nitrite,Urine Negative (Negative); PH,Urine 5.5 pH Units (5.0-8.0); Protein,Urine 30 mg/dL (Neg-Trace); RBC,Urine 0-3 per hpf (0-3); Specific Gravity,Urine 1.019 (1.010-1.025); Urobilinogen,Urine Normal (Normal); WBC,Urine 0-3 per hpf (0-3)
[2021-03-04] MEDS ORDERED: *HR* LORazepam 0.5 MG TABLET PO ONE (12:57)
[2021-03-04] MEDS: Pantoprazole 40 MG VIAL IVP SCH (16:57)
[2021-03-04] MEDS: MetroNIDAZOLE 500 MG/100 ML 500 MG/100 ML BAG IVPB SCH (16:58)
[2021-03-04] MEDS: 0.9 % Sodium Chloride 1,000 ML IVC SCH (16:58)
[2021-03-04] MEDS ORDERED: *HR* LORazepam 2 MG/ML VIAL IVP ONE (21:16)
[2021-03-05] MEDS: MetroNIDAZOLE 500 MG/100 ML 500 MG/100 ML BAG IVPB SCH ×3 (00:11→15:13)
[2021-03-05 05:17] LABS: Basophils % 0.1 %; Eosinophils % 0.4 %; Hematocrit 26.2 % (37.5-50.1); Hemoglobin 8.9 g/dL (12.9-16.9); Lymphocytes # 0.9 K/mcL (0.6-4.6); Lymphocytes % 11.3 %; Mean Corpuscular Hemoglobin 30.7 pg (28.0-33.3); Mean Corpuscular Volume 90.3 fL (83.0-100.0); Mean Platelet Volume 11.2 fL (9.4-12.4); Monocytes # 0.7 K/mcL (0.0-1.3); Monocytes % 9.5 %; Platelet Count 129 K/mcL (140-400); Red Cell Distribution Width 15.7 % (11.5-14.5); Segmented Neutrophils % 77.7 %; White Blood Count 7.7 K/mcL (4.3-11.1)
[2021-03-05 05:53] LABS: Bilirubin,Total 0.6 mg/dL (0.3-1.0); Calcium 7.2 mg/dL (8.6-10.3); Globulin 2.1 g/dL (2.4-3.5); Magnesium 1.7 mg/dL (1.6-2.6); Potassium 4.2 mEq/L (3.5-5.1); Total Protein 4.1 g/dL (6.4-8.9)
[2021-03-05] MEDS: Pantoprazole 40 MG VIAL IVP SCH ×2 (06:11→16:45)
[2021-03-05] MEDS: Multivit/Ca/Min/Fe/FA 1 TAB TABLET PO SCH (08:10)
[2021-03-05] MEDS: Cholecalciferol (D-3) 1,000 UNIT (25MCG) TABLET PO SCH (08:10)
[2021-03-05] MEDS: Ascorbic Acid 500 MG TABLET PO SCH ×2 (08:10→16:45)
[2021-03-05] MEDS: Magnesium Oxide 400 MG TABLET PO SCH (08:10)
[2021-03-05] MEDS: Aspirin Enteric Coated 81 MG Tablet PO SCH (08:10)
[2021-03-05] MEDS: Lactobacillus 1 EACH CAP.SPRINK PO SCH (15:12)
[2021-03-05] MEDS: 0.9 % Sodium Chloride 1,000 ML IVC SCH ×2 (16:33→16:44)
[2021-03-06] MEDS: MetroNIDAZOLE 500 MG/100 ML 500 MG/100 ML BAG IVPB SCH ×3 (00:45→19:44)
[2021-03-06] MEDS: 0.9 % Sodium Chloride 1,000 ML IVC SCH (05:24)
[2021-03-06] MEDS: Pantoprazole 40 MG VIAL IVP SCH ×2 (05:25→19:32)
[2021-03-06 05:45] LABS: Basophils % 0.3 %; Eosinophils % 0.5 %; Hemoglobin 9.3 g/dL (12.9-16.9); Lymphocytes # 0.7 K/mcL (0.6-4.6); Lymphocytes % 9.3 %; Mean Corpuscular HGB Conc 33.2 g/dL (31.6-35.5); Mean Corpuscular Hemoglobin 30.2 pg (28.0-33.3); Mean Corpuscular Volume 90.9 fL (83.0-100.0); Mean Platelet Volume 10.7 fL (9.4-12.4); Monocytes # 0.6 K/mcL (0.0-1.3); Monocytes % 8.4 %; Neutrophils # 5.9 K/mcL (1.6-8.9); Platelet Count 156 K/mcL (140-400); Red Blood Count 3.08 M/mcL (4.19-5.50); Red Cell Distribution Width 15.6 % (11.5-14.5); Segmented Neutrophils % 80.5 %; White Blood Count 7.4 K/mcL (4.3-11.1)
[2021-03-06 06:05] LABS: BUN/Creatinine Ratio 24 (6-26); Blood Urea Nitrogen 32 mg/dL (8-23); Calcium 7.3 mg/dL (8.6-10.3); Carbon Dioxide 24 mEq/L (23-29); Chloride 108 mEq/L (98-107); Glucose 89 mg/dL (70-105); Osmolality,Calculated 286 (280-300); Potassium 4.3 mEq/L (3.5-5.1); Sodium 135 mEq/L (136-145); eGFR For African Americans > 60 (> 60); eGFR For Non-African Americans 50 (> 60)
[2021-03-06] MEDS: Magnesium Oxide 400 MG TABLET PO SCH (08:51)
[2021-03-06] MEDS: Aspirin Enteric Coated 81 MG Tablet PO SCH (08:51)
[2021-03-06] MEDS: Cholecalciferol (D-3) 1,000 UNIT (25MCG) TABLET PO SCH (08:51)
[2021-03-06] MEDS: Lactobacillus 1 EACH CAP.SPRINK PO SCH (08:53)
[2021-03-06] MEDS: Ascorbic Acid 500 MG TABLET PO SCH ×2 (08:53→16:44)
[2021-03-06] MEDS: Multivit/Ca/Min/Fe/FA 1 TAB TABLET PO SCH (08:54)
[2021-03-06 15:11] LABS: Adenovirus Not Detected (Not Detect); Bordetella Pertussis Not Detected (Not Detect); Chlamydophila pneumoniae Not Detected (Not Detect); Coronavirus 229E Not Detected (Not Detect); Coronavirus HKU1 Not Detected (Not Detect); Coronavirus NL63 Not Detected (Not Detect); Coronavirus OC43 Not Detected (Not Detect); Human Metapneumovirus Not Detected (Not Detect); Human Rhinovirus/Enterovirus Not Detected (Not Detect); Influenza A Subtype 2009 H1 Not Detected (Not Detect); Influenza B Not Detected (Not Detect); Mycoplasma pneumoniae Not Detected (Not Detect); Parainfluenza Virus 1 Not Detected (Not Detect); Parainfluenza Virus 2 Not Detected (Not Detect); Parainfluenza Virus 3 Not Detected (Not Detect); Parainfluenza Virus 4 Not Detected (Not Detect); Respiratory Syncytial Virus Not Detected (Not Detect); SARS-CoV-2 Not Detected (Not Detect)
[2021-03-06 17:04] VITALS: BP 136/79; PULSE 74; TEMP 98; O2SAT 96
== END 2021-03-06 20:00 | disposition other institution (70) | DRG 522 ==
LOC: 3NENU → SUATTDRO 02-25 07:11
PROVIDERS: ADMIT Pharmacist; ATTEND General Practice

== ENCOUNTER 2021-03-23 13:06 | Observation (INO) ==
[2021-03-23] MEDS ORDERED: Naloxone 0.4 MG/ML INJ IVP PRN (19:39)
[2021-03-24 04:50] LABS: Basophils # 0.1 K/mcL (0.0-0.2); Eosinophils # 0.1 K/mcL (0.0-0.6); Eosinophils % 1.8 %; Hematocrit 28.1 % (37.5-50.1); Hemoglobin 8.9 g/dL (12.9-16.9); Immature Granulocytes % 0.8 % (0-4); Lymphocytes # 0.9 K/mcL (0.6-4.6); Lymphocytes % 18.7 %; Mean Corpuscular HGB Conc 31.7 g/dL (31.6-35.5); Mean Corpuscular Hemoglobin 30.2 pg (28.0-33.3); Mean Corpuscular Volume 95.3 fL (83.0-100.0); Mean Platelet Volume 10.7 fL (9.4-12.4); Monocytes # 0.5 K/mcL (0.0-1.3); Monocytes % 9.5 %; Neutrophils # 3.4 K/mcL (1.6-8.9); Platelet Count 170 K/mcL (140-400); Red Blood Count 2.95 M/mcL (4.19-5.50); Red Cell Distribution Width 15.8 % (11.5-14.5); Segmented Neutrophils % 68.2 %
[2021-03-24 04:56] LABS: BUN/Creatinine Ratio 18 (6-26); Blood Urea Nitrogen 29 mg/dL (8-23); Calcium 7.6 mg/dL (8.6-10.3); Carbon Dioxide 26 mEq/L (23-29); Chloride 113 mEq/L (98-107); Glucose 92 mg/dL (70-105); Osmolality,Calculated 305 (280-300); Sodium 145 mEq/L (136-145); eGFR For African Americans 49 (> 60); eGFR For Non-African Americans 41 (> 60)
[2021-03-24] MEDS ORDERED: Ondansetron 4 MG/2 ML VIAL IVP PRN (10:28)
[2021-03-24] MEDS ORDERED: Sennosides/Docusate Sodium TABLET PO PRN (10:30)
[2021-03-24 10:43] LABS: C-Reactive Protein < 5 mg/L (Less than 10)
[2021-03-24] MEDS ORDERED: Ondansetron ODT 4 MG TAB.RAPDIS PO PRN (10:43)
[2021-03-24] MEDS: Piperacillin/Tazobactam 3.375 GM in 0.9 % Sodium Chloride Mini Bag 100 ML IVPB SCH ×2 (12:52→21:43)
[2021-03-24] MEDS ORDERED: Famotidine 20 MG TABLET PO SCH (21:00)
[2021-03-24] MEDS: *HR* OxyCODONE/APAP 5/325 TABLET PO PRN (21:53)
[2021-03-25] MEDS: Piperacillin/Tazobactam 3.375 GM in 0.9 % Sodium Chloride Mini Bag 100 ML IVPB SCH ×3 (04:15→21:27)
[2021-03-25] MEDS ORDERED: Ondansetron 4 MG/2 ML VIAL IVP PRN (08:34)
[2021-03-25] MEDS ORDERED: *HR* HYDROmorphone PF 0.5 MG/0.5 ML SYRINGE IVP PRN (08:34)
[2021-03-25] MEDS ORDERED: *HR* FentaNYL (PF) 100 MCG/2 ML VIAL IVP PRN (08:34)
[2021-03-25] MEDS ORDERED: Lidocaine HCL 4 ML Topical Solution (Laryng-O-Jet Kit Sterile Pak) TP ONE (09:10)
[2021-03-25] MEDS ORDERED: *HR* Succinylcholine 200 MG/10 ML VIAL IVP ONE (09:10)
[2021-03-25] MEDS ORDERED: Lidocaine -MPF 2% 2 ML VIAL ONE ×2 (09:10→09:14)
[2021-03-25] MEDS ORDERED: *HR* FentaNYL (PF) 100 MCG/2 ML VIAL ONE (09:10)
[2021-03-25] MEDS ORDERED: *HR* Propofol 200 MG/20 ML VIAL IVP ONE (09:10)
[2021-03-25] MEDS ORDERED: 0.9 % Sodium Chloride 1,000 ML ONE (09:18)
[2021-03-25] MEDS ORDERED: CeFAZolin Syr 2,000MG/20 ML 2,000 MG/20 ML SYRINGE IVPB ONE (09:38)
[2021-03-25] MEDS ORDERED: Gentamicin 400 MG in 0.9 % Sodium Chloride 100 ML IVPB ONE (09:40)
[2021-03-25] MEDS ORDERED: Ethanol\\Acetic Acid\\Na Ace\\Ben 1,000 ML IRRIG.SOLN IR ONE (09:47)
[2021-03-25] MEDS ORDERED: Albumin Human 5% 12.5 GM/250 ML IV.SOLN ONE (10:04)
[2021-03-25] MEDS ORDERED: EPHEDrine 50 MG/ML VIAL ONE (10:11)
[2021-03-25] MEDS ORDERED: *HR* Etomidate 40 MG/20 ML VIAL IVP ONE (10:20)
[2021-03-25] MEDS ORDERED: Lacri-Lube 3.5 GM TUBE ONE (10:24)
[2021-03-25 11:00] LABS: Adenovirus Not Detected (Not Detect); Bordetella Pertussis Not Detected (Not Detect); Chlamydophila pneumoniae Not Detected (Not Detect); Coronavirus 229E Not Detected (Not Detect); Coronavirus HKU1 Not Detected (Not Detect); Coronavirus NL63 Not Detected (Not Detect); Coronavirus OC43 Not Detected (Not Detect); Human Metapneumovirus Not Detected (Not Detect); Human Rhinovirus/Enterovirus Not Detected (Not Detect); Influenza A Subtype 2009 H1 Not Detected (Not Detect); Influenza B Not Detected (Not Detect); Mycoplasma pneumoniae Not Detected (Not Detect); Parainfluenza Virus 1 Not Detected (Not Detect); Parainfluenza Virus 2 Not Detected (Not Detect); Parainfluenza Virus 3 Not Detected (Not Detect); Parainfluenza Virus 4 Not Detected (Not Detect); Respiratory Syncytial Virus Not Detected (Not Detect); SARS-CoV-2 Not Detected (Not Detect)
[2021-03-25] MEDS ORDERED: Ondansetron 4 MG/2 ML VIAL ONE (11:03)
[2021-03-25] MEDS ORDERED: Vancomycin 1,000 MG VIAL ONE (11:17)
[2021-03-25] MEDS: Cholecalciferol (D-3) 1,000 UNIT (25MCG) TABLET PO SCH (11:18)
[2021-03-25] MEDS: Magnesium Oxide 400 MG TABLET PO SCH (11:18)
[2021-03-25] MEDS: Lactobacillus 1 EACH CAP.SPRINK PO SCH (11:18)
[2021-03-25] MEDS ORDERED: Ropivacaine/PF 0.5% 30 ML VIAL ONE (11:25)
[2021-03-25] MEDS ORDERED: Povidone-Iodine 45 ML, Sodium Chloride IRRigation 1,000 ML IR ONE (12:15)
[2021-03-25] MEDS: *HR* OxyCODONE/APAP 5/325 TABLET PO PRN (16:31)
[2021-03-25] MEDS: Aspirin Enteric Coated 81 MG Tablet PO SCH (16:31)
[2021-03-25 19:24] LABS: Basophils % 0.3 %; Hematocrit 29.3 % (37.5-50.1); Hemoglobin 8.9 g/dL (12.9-16.9); Immature Granulocytes % 0.4 % (0-4); Lymphocytes # 0.5 K/mcL (0.6-4.6); Lymphocytes % 6.7 %; Mean Corpuscular HGB Conc 30.4 g/dL (31.6-35.5); Mean Corpuscular Hemoglobin 30.5 pg (28.0-33.3); Mean Corpuscular Volume 100.3 fL (83.0-100.0); Mean Platelet Volume 10.8 fL (9.4-12.4); Monocytes # 0.1 K/mcL (0.0-1.3); Monocytes % 1.9 %; Neutrophils # 6.2 K/mcL (1.6-8.9); Platelet Count 169 K/mcL (140-400); Red Blood Count 2.92 M/mcL (4.19-5.50); Red Cell Distribution Width 15.8 % (11.5-14.5); Segmented Neutrophils % 90.7 %; White Blood Count 6.9 K/mcL (4.3-11.1)
[2021-03-25 19:44] LABS: Calcium 7.9 mg/dL (8.6-10.3); Potassium 3.7 mEq/L (3.5-5.1)
[2021-03-25] MEDS: Famotidine 20 MG TABLET PO SCH (20:35)
[2021-03-25] MEDS: CeFAZolin 2 GM/120 ML BAG IVPB SCH (20:36)
[2021-03-26] MEDS: *HR* OxyCODONE/APAP 5/325 TABLET PO PRN (00:17)
[2021-03-26] MEDS: CeFAZolin 2 GM/120 ML BAG IVPB SCH ×2 (02:50→11:08)
[2021-03-26] MEDS: Piperacillin/Tazobactam 3.375 GM in 0.9 % Sodium Chloride Mini Bag 100 ML IVPB SCH ×3 (04:18→20:52)
[2021-03-26 05:08] LABS: Basophils # 0.1 K/mcL (0.0-0.2); Basophils % 0.8 %; Eosinophils % 0.2 %; Hematocrit 26.5 % (37.5-50.1); Immature Granulocytes % 0.5 % (0-4); Lymphocytes # 0.9 K/mcL (0.6-4.6); Lymphocytes % 14.5 %; Mean Corpuscular HGB Conc 30.2 g/dL (31.6-35.5); Mean Corpuscular Volume 99.3 fL (83.0-100.0); Mean Platelet Volume 10.9 fL (9.4-12.4); Monocytes # 0.5 K/mcL (0.0-1.3); Monocytes % 7.8 %; Neutrophils # 4.7 K/mcL (1.6-8.9); Platelet Count 160 K/mcL (140-400); Red Blood Count 2.67 M/mcL (4.19-5.50); Red Cell Distribution Width 15.9 % (11.5-14.5); Segmented Neutrophils % 76.2 %; White Blood Count 6.2 K/mcL (4.3-11.1)
[2021-03-26 05:19] LABS: Calcium 7.7 mg/dL (8.6-10.3); Potassium 3.9 mEq/L (3.5-5.1)
[2021-03-26] MEDS: Cholecalciferol (D-3) 1,000 UNIT (25MCG) TABLET PO SCH (09:36)
[2021-03-26] MEDS: Aspirin Enteric Coated 81 MG Tablet PO SCH (09:36)
[2021-03-26] MEDS: Lactobacillus 1 EACH CAP.SPRINK PO SCH (09:37)
[2021-03-26] MEDS: Magnesium Oxide 400 MG TABLET PO SCH (09:37)
[2021-03-26] MEDS: Famotidine 20 MG TABLET PO SCH (20:52)
[2021-03-27 02:27] LABS: Basophils % 0.4 %; Calcium 7.5 mg/dL (8.6-10.3); Eosinophils # 0.1 K/mcL (0.0-0.6); Hematocrit 24.3 % (37.5-50.1); Hemoglobin 7.6 g/dL (12.9-16.9); Immature Granulocytes % 0.4 % (0-4); Lymphocytes # 1.1 K/mcL (0.6-4.6); Lymphocytes % 15.6 %; Mean Corpuscular HGB Conc 31.3 g/dL (31.6-35.5); Mean Corpuscular Hemoglobin 30.4 pg (28.0-33.3); Mean Corpuscular Volume 97.2 fL (83.0-100.0); Mean Platelet Volume 10.9 fL (9.4-12.4); Monocytes # 0.6 K/mcL (0.0-1.3); Monocytes % 8.2 %; Neutrophils # 5.2 K/mcL (1.6-8.9); Platelet Count 137 K/mcL (140-400); Potassium 3.5 mEq/L (3.5-5.1); Red Cell Distribution Width 15.7 % (11.5-14.5); Segmented Neutrophils % 74.4 %; White Blood Count 6.9 K/mcL (4.3-11.1)
[2021-03-27] MEDS: Piperacillin/Tazobactam 3.375 GM in 0.9 % Sodium Chloride Mini Bag 100 ML IVPB SCH ×3 (04:03→22:55)
[2021-03-27] MEDS: Aspirin Enteric Coated 81 MG Tablet PO SCH (08:24)
[2021-03-27] MEDS: Cholecalciferol (D-3) 1,000 UNIT (25MCG) TABLET PO SCH (08:24)
[2021-03-27] MEDS: Magnesium Oxide 400 MG TABLET PO SCH (08:24)
[2021-03-27] MEDS: Lactobacillus 1 EACH CAP.SPRINK PO SCH (08:24)
[2021-03-27] MEDS: *HR* OxyCODONE/APAP 5/325 TABLET PO PRN ×2 (11:26→18:29)
[2021-03-27 15:57] LABS: Hematocrit 27.5 % (37.5-50.1); Hemoglobin 8.8 g/dL (12.9-16.9)
[2021-03-27 21:08] LABS: Hematocrit 25.5 % (37.5-50.1); Hemoglobin 8.1 g/dL (12.9-16.9)
[2021-03-27] MEDS: Famotidine 20 MG TABLET PO SCH (22:56)
[2021-03-28] MEDS: *HR* OxyCODONE/APAP 5/325 TABLET PO PRN ×3 (03:49→18:39)
[2021-03-28] MEDS: Piperacillin/Tazobactam 3.375 GM in 0.9 % Sodium Chloride Mini Bag 100 ML IVPB SCH ×3 (04:47→22:47)
[2021-03-28 04:52] LABS: Basophils # 0.1 K/mcL (0.0-0.2); Basophils % 0.7 %; Eosinophils # 0.1 K/mcL (0.0-0.6); Eosinophils % 1.2 %; Hematocrit 25.2 % (37.5-50.1); Hemoglobin 7.8 g/dL (12.9-16.9); Immature Granulocytes % 0.4 % (0-4); Lymphocytes % 12.7 %; Mean Corpuscular Hemoglobin 30.2 pg (28.0-33.3); Mean Corpuscular Volume 97.7 fL (83.0-100.0); Monocytes # 0.7 K/mcL (0.0-1.3); Monocytes % 8.7 %; Neutrophils # 5.8 K/mcL (1.6-8.9); Platelet Count 146 K/mcL (140-400); Red Blood Count 2.58 M/mcL (4.19-5.50); Red Cell Distribution Width 15.9 % (11.5-14.5); Segmented Neutrophils % 76.3 %; White Blood Count 7.6 K/mcL (4.3-11.1)
[2021-03-28 05:11] LABS: Calcium 7.8 mg/dL (8.6-10.3); Potassium 3.5 mEq/L (3.5-5.1)
[2021-03-28] MEDS: Cholecalciferol (D-3) 1,000 UNIT (25MCG) TABLET PO SCH (08:20)
[2021-03-28] MEDS: Magnesium Oxide 400 MG TABLET PO SCH (08:20)
[2021-03-28] MEDS: Aspirin Enteric Coated 81 MG Tablet PO SCH (08:20)
[2021-03-28] MEDS: Lactobacillus 1 EACH CAP.SPRINK PO SCH (08:20)
[2021-03-28] MEDS: Hyoscyamine SL 0.125 MG TAB.SUBL PO PRN ×2 (09:59→18:40)
[2021-03-28 15:23] LABS: Adenovirus Not Detected (Not Detect); Bordetella Pertussis Not Detected (Not Detect); Chlamydophila pneumoniae Not Detected (Not Detect); Coronavirus 229E Not Detected (Not Detect); Coronavirus HKU1 Not Detected (Not Detect); Coronavirus NL63 Not Detected (Not Detect); Coronavirus OC43 Not Detected (Not Detect); Human Metapneumovirus Not Detected (Not Detect); Human Rhinovirus/Enterovirus Not Detected (Not Detect); Influenza A Subtype 2009 H1 Not Detected (Not Detect); Influenza B Not Detected (Not Detect); Mycoplasma pneumoniae Not Detected (Not Detect); Parainfluenza Virus 1 Not Detected (Not Detect); Parainfluenza Virus 2 Not Detected (Not Detect); Parainfluenza Virus 3 Not Detected (Not Detect); Parainfluenza Virus 4 Not Detected (Not Detect); Respiratory Syncytial Virus Not Detected (Not Detect); SARS-CoV-2 Not Detected (Not Detect)
[2021-03-28] MEDS: Famotidine 20 MG TABLET PO SCH (22:47)
[2021-03-28 23:39] VITALS: BP 112/62; PULSE 73; TEMP 98; O2SAT 97
== END 2021-03-29 01:41 ==
LOC: 4WAOSI → SUATTDRO 18:18
PROVIDERS: ADMIT Internal Medicine; ATTEND Internal Medicine

== ENCOUNTER 2021-11-21 23:31 | Inpatient (IN) ==
[2021-11-22] MEDS ORDERED: Naloxone 0.4 MG/ML INJ IVP PRN (02:13)
[2021-11-22] MEDS ORDERED: Ondansetron 4 MG/2 ML VIAL IVP PRN (02:13)
[2021-11-22] MEDS ORDERED: D5% in Water 1,000 ML IVC PRN (02:15)
[2021-11-22] MEDS ORDERED: Dextrose 4 GM Chewable Tablets PO PRN ×2 (02:15)
[2021-11-22] MEDS ORDERED: 0.9 % Sodium Chloride 1,000 ML IVC ONE ×2 (02:29→09:03)
[2021-11-22] MEDS ORDERED: D5% in Water 1,000 ML IVC SCH (02:30)
[2021-11-22] MEDS ORDERED: 0.9 % Sodium Chloride 1,000 ML ONE (02:31)
[2021-11-22] MEDS: 0.9 % Sodium Chloride 1,000 ML IVC SCH ×2 (02:35→08:17)
[2021-11-22 04:06] LABS: Basophils % 0.1 %; Hematocrit 34.5 % (37.5-50.1); Hemoglobin 11.2 g/dL (12.9-16.9); Immature Granulocytes % 0.3 % (0-4); Lymphocytes # 0.6 K/mcL (0.6-4.6); Lymphocytes % 3.8 %; Mean Corpuscular HGB Conc 32.5 g/dL (31.6-35.5); Mean Corpuscular Hemoglobin 30.5 pg (28.0-33.3); Mean Platelet Volume 10.8 fL (9.4-12.4); Monocytes # 0.6 K/mcL (0.0-1.3); Monocytes % 4.3 %; Neutrophils # 13.4 K/mcL (1.6-8.9); Platelet Count 133 K/mcL (140-400); Red Blood Count 3.67 M/mcL (4.19-5.50); Red Cell Distribution Width 14.9 % (11.5-14.5); Segmented Neutrophils % 91.5 %; White Blood Count 14.6 K/mcL (4.3-11.1)
[2021-11-22 04:22] LABS: Alanine Aminotransferase 22 Units/L (7-52); Albumin 2.8 g/dL (3.5-5.7); Albumin/Globulin Ratio 0.9 (1.1-2.2); Alkaline Phosphatase 67 Units/L (34-104); Aspartate Amino Transferase 42 Units/L (13-39); BUN/Creatinine Ratio 29 (6-26); Bilirubin,Total 0.3 mg/dL (0.3-1.0); Blood Urea Nitrogen 129 mg/dL (8-23); Calcium 7.4 mg/dL (8.6-10.3); Carbon Dioxide 12 mEq/L (23-29); Chloride 114 mEq/L (98-107); Glucose 139 mg/dL (70-105); Magnesium 2.7 mg/dL (1.6-2.6); Osmolality,Calculated 332 (280-300); Phosphorous 6.7 mg/dL (2.7-4.5); Potassium 5.1 mEq/L (3.5-5.1); Sodium 139 mEq/L (136-145); Total Protein 5.8 g/dL (6.4-8.9); eGFR For African Americans 15 (> 60); eGFR For Non-African Americans 13 (> 60)
[2021-11-22 04:24] LABS: INR 1.6; Prothrombin Time 17.5 Seconds (9.4-12.1)
[2021-11-22 04:38] LABS: Troponin I 0.04 ng/mL (< 0.04)
[2021-11-22] MEDS ORDERED: 0.9 % Sodium Chloride 1,000 ML IVC SCH (05:00)
[2021-11-22] MEDS ORDERED: Ringers Solution, Lactated 1,000 ML IVC SCH (05:00)
[2021-11-22] MEDS ORDERED: Ringers Solution, Lactated 1,000 ML IVC ONE (05:03)
[2021-11-22 05:30] LABS: Creatine Kinase 965 Units/L (30-223)
[2021-11-22] MEDS ORDERED: Vancomycin 1,250 MG/262.5 ML IV.SOLN IVPB ONE (06:00)
[2021-11-22] MEDS ORDERED: Hydrocortisone Sodium Succ 100 MG/2 ML VIAL IVP ONE (06:00)
[2021-11-22 06:08] LABS: Sodium, Urine 36.5 mEq/L
[2021-11-22] MEDS: Cefepime HCl 2,000 MG in 0.9 % Sodium Chloride 10 ML IVP SCH (06:15)
[2021-11-22 06:35] LABS: Bacteria,Urine Few per hpf (None-Few); Bilirubin,Urine Negative (Negative); Blood,Urine Large (Negative); Clarity,Urine Turbid (Clear); Color,Urine Light-Yellow (Yellow); Glucose,Urine (UA) Normal (Normal); Hyaline Casts,Urine Few per lpf (None Seen); Ketones,Urine Negative (Negative); Leukocyte Esterase,Urine Negative (Negative); Mucus,Urine Few per lpf (None-Few); Nitrite,Urine Negative (Negative); PH,Urine 5.5 pH Units (5.0-8.0); Protein,Urine 50 mg/dL (Neg-Trace); RBC,Urine 0-3 per hpf (0-3); Specific Gravity,Urine 1.016 (1.010-1.025); Urobilinogen,Urine Normal (Normal); WBC,Urine 0-3 per hpf (0-3)
[2021-11-22] MEDS: Norepinephrine 4 MG/254 ML IV.SOLN IVC SCH ×2 (06:59→12:57)
[2021-11-22] MEDS: Sodium Bicarbonate 75 MEQ in 0.45 % Sodium Chloride 1,000 ML IVC SCH ×2 (11:07→23:51)
[2021-11-22 13:51] LABS: ABG Base Excess -16 mEq/L (-2 to 3); ABG HCO3 13 mEq/L (21-27); ABG Oxygen Saturation 88 % (95-98); ABG PCO2 39 mmHg (35-45); ABG PH 7.11 pH Units (7.32-7.45); ABG PO2 72 mmHg (85-104); ABG TCO2 14 mEq/L (20-26)
[2021-11-22] MEDS: *HR* Dextrose 50 % in Water (Syg) 50 ML SYRINGE IVP PRN (16:26)
[2021-11-22] MEDS: Norepinephrine 32 MG in 0.9 % Sodium Chloride 218 ML IVC SCH (18:00)
[2021-11-23 01:21] LABS: Basophils % 0.1 %; Hematocrit 34.2 % (37.5-50.1); Hemoglobin 11.2 g/dL (12.9-16.9); Immature Granulocytes % 0.4 % (0-4); Lymphocytes # 0.6 K/mcL (0.6-4.6); Lymphocytes % 3.8 %; Mean Corpuscular HGB Conc 32.7 g/dL (31.6-35.5); Mean Corpuscular Hemoglobin 29.8 pg (28.0-33.3); Mean Platelet Volume 10.2 fL (9.4-12.4); Monocytes # 0.7 K/mcL (0.0-1.3); Monocytes % 4.4 %; Neutrophils # 14.7 K/mcL (1.6-8.9); Platelet Count 147 K/mcL (140-400); Red Blood Count 3.76 M/mcL (4.19-5.50); Segmented Neutrophils % 91.3 %; White Blood Count 16.1 K/mcL (4.3-11.1)
[2021-11-23 01:41] LABS: Albumin 2.5 g/dL (3.5-5.7); Albumin/Globulin Ratio 0.9 (1.1-2.2); Bilirubin,Total 0.4 mg/dL (0.3-1.0); Calcium 7.5 mg/dL (8.6-10.3); Globulin 2.7 g/dL (2.4-3.5); Magnesium 2.7 mg/dL (1.6-2.6); Phosphorous 7.4 mg/dL (2.7-4.5); Potassium 5.2 mEq/L (3.5-5.1); Total Protein 5.2 g/dL (6.4-8.9)
[2021-11-23 02:26] LABS: Burr Cells 1+ (Not Present); Platelet Estimate Normal (Normal)
[2021-11-23] MEDS ORDERED: Vancomycin 1,250 MG/262.5 ML IV.SOLN IVPB ONE (03:00)
[2021-11-23 04:55] LABS: ABG Base Excess -12 mEq/L (-2 to 3); ABG HCO3 14 mEq/L (21-27); ABG Oxygen Saturation 90 % (95-98); ABG PCO2 31 mmHg (35-45); ABG PH 7.26 pH Units (7.32-7.45); ABG PO2 66 mmHg (85-104); ABG TCO2 15 mEq/L (20-26); Blood Gas Modality 4LPM
[2021-11-23] MEDS: Cefepime HCl 2,000 MG in 0.9 % Sodium Chloride 10 ML IVP SCH (05:41)
[2021-11-23] MEDS: *HR* Dextrose 50 % in Water (Syg) 50 ML SYRINGE IVP PRN ×2 (08:31→09:12)
[2021-11-23] MEDS: MetroNIDAZOLE 500 MG/100 ML 500 MG/100 ML BAG IVPB SCH ×3 (08:36→18:13)
[2021-11-23] MEDS ORDERED: D10% in Water 500 ML IVC SCH (09:45)
[2021-11-23] MEDS ORDERED: Morphine Sulfate 2 MG/ML SYRINGE IVP ONE (11:53)
[2021-11-23] MEDS: D10% in Water 500 ML IVC SCH ×2 (14:53→23:57)
[2021-11-23] MEDS: Sodium Bicarbonate 75 MEQ in 0.45 % Sodium Chloride 1,000 ML IVC SCH (14:59)
[2021-11-23] MEDS: Morphine Sulfate 2 MG/ML SYRINGE IVP PRN (18:57)
[2021-11-23] MEDS: Norepinephrine 32 MG in 0.9 % Sodium Chloride 218 ML IVC SCH (21:30)
[2021-11-23] MEDS: *HR* Heparin 5,000 UNIT/ML VIAL SQ SCH (21:52)
[2021-11-23] MEDS: Pantoprazole 40 MG VIAL IVP SCH (21:52)
[2021-11-24] MEDS: MetroNIDAZOLE 500 MG/100 ML 500 MG/100 ML BAG IVPB SCH ×5 (00:17→23:28)
[2021-11-24] MEDS: Morphine Sulfate 2 MG/ML SYRINGE IVP PRN ×2 (00:21→06:27)
[2021-11-24 03:43] LABS: VBG Ionized Calcium 1.09 mmol/L (1.15-1.35)
[2021-11-24 03:50] LABS: Basophils % 0.2 %; Hematocrit 32.2 % (37.5-50.1); Hemoglobin 10.7 g/dL (12.9-16.9); Immature Granulocytes % 1.3 % (0-4); Lymphocytes # 0.6 K/mcL (0.6-4.6); Lymphocytes % 4.4 %; Mean Corpuscular HGB Conc 33.2 g/dL (31.6-35.5); Mean Corpuscular Hemoglobin 30.5 pg (28.0-33.3); Mean Corpuscular Volume 91.7 fL (83.0-100.0); Mean Platelet Volume 10.5 fL (9.4-12.4); Monocytes # 0.6 K/mcL (0.0-1.3); Monocytes % 4.3 %; Neutrophils # 11.9 K/mcL (1.6-8.9); Platelet Count 101 K/mcL (140-400); Red Blood Count 3.51 M/mcL (4.19-5.50); Red Cell Distribution Width 15.7 % (11.5-14.5); Segmented Neutrophils % 89.8 %; White Blood Count 13.2 K/mcL (4.3-11.1)
[2021-11-24 04:11] LABS: Albumin 2.3 g/dL (3.5-5.7); Albumin/Globulin Ratio 0.9 (1.1-2.2); Bilirubin,Direct 0.1 mg/dL (0.0-0.2); Bilirubin,Indirect 0.3 mg/dL (0.0-1.0); Bilirubin,Total 0.4 mg/dL (0.3-1.0); Calcium 7.5 mg/dL (8.6-10.3); Globulin 2.5 g/dL (2.4-3.5); Magnesium 2.8 mg/dL (1.6-2.6); Phosphorous 7.1 mg/dL (2.7-4.5); Potassium 4.9 mEq/L (3.5-5.1); Total Protein 4.8 g/dL (6.4-8.9)
[2021-11-24] MEDS: Sodium Bicarbonate 75 MEQ in 0.45 % Sodium Chloride 1,000 ML IVC SCH ×2 (05:16→21:07)
[2021-11-24] MEDS: Cefepime HCl 2,000 MG in 0.9 % Sodium Chloride 10 ML IVP SCH (05:17)
[2021-11-24] MEDS: Pantoprazole 40 MG VIAL IVP SCH ×2 (05:17→17:23)
[2021-11-24] MEDS: *HR* Heparin 5,000 UNIT/ML VIAL SQ SCH ×2 (05:17→17:23)
[2021-11-24] MEDS: *HR* Dextrose 50 % in Water (Syg) 50 ML SYRINGE IVP PRN ×2 (07:17→17:54)
[2021-11-24] MEDS: D10% in Water 500 ML IVC SCH ×2 (08:16→18:26)
[2021-11-24 10:24] LABS: ABG Base Excess -12 mEq/L (-2 to 3); ABG HCO3 18 mEq/L (21-27); ABG Oxygen Saturation 90 % (95-98); ABG PCO2 62 mmHg (35-45); ABG PH 7.07 pH Units (7.32-7.45); ABG PO2 83 mmHg (85-104); ABG TCO2 20 mEq/L (20-26)
[2021-11-24] MEDS ORDERED: Artificial Tears SOLN 15 ML BOTTLE BOTH EYES PRN (11:38)
[2021-11-24] MEDS ORDERED: *HR* Midazolam HCl 5 MG/5 ML VIAL IVP ONE (11:45)
[2021-11-24] MEDS ORDERED: *HR* Etomidate 20 MG/10 ML AMPUL IVP ONE (11:45)
[2021-11-24] MEDS ORDERED: Albumin Human 5% 25.0 GM/500 ML IV.SOLN ONE (11:51)
[2021-11-24] MEDS: FentaNYL (PF) 1,000 MCG/100 ML IV.SOLN IVC SCH ×2 (12:02→22:49)
[2021-11-24] MEDS: Dexmedetomidine HCl 400 MCG/100 ML MLS IVC SCH (12:09)
[2021-11-24] MEDS: Artificial Tears SOLN 15 ML BOTTLE BOTH EYES SCH ×4 (12:36→23:29)
[2021-11-24] MEDS ORDERED: Vancomycin 1,250 MG/262.5 ML IV.SOLN IVPB ONE (13:04)
[2021-11-24 13:35] LABS: ABG Base Excess -7 mEq/L (-2 to 3); ABG HCO3 20 mEq/L (21-27); ABG Oxygen Saturation 100 % (95-98); ABG PCO2 47 mmHg (35-45); ABG PH 7.24 pH Units (7.32-7.45); ABG PO2 206 mmHg (85-104); ABG TCO2 21 mEq/L (20-26); Blood Gas VT 430 cc
[2021-11-24] MEDS ORDERED: Ipratropium/Albuterol Neb 3 ML IH PRN (15:24)
[2021-11-24] MEDS: Albumin Human 5% 12.5 GM/250 ML IV.SOLN IVPB SCH ×2 (15:35→16:52)
[2021-11-24] MEDS: Budesonide/Formoterol 160/4.5 1 PUFF INH IH SCH (20:12)
[2021-11-24] MEDS: Norepinephrine 32 MG in 0.9 % Sodium Chloride 218 ML IVC SCH (21:07)
[2021-11-24] MEDS: Chlorhexidine Rinse 15 ML MOUTHWASH MM SCH (21:12)
[2021-11-25] MEDS: Dexmedetomidine HCl 400 MCG/100 ML MLS IVC SCH ×2 (02:00→18:42)
[2021-11-25] MEDS: Artificial Tears SOLN 15 ML BOTTLE BOTH EYES SCH ×6 (03:24→23:44)
[2021-11-25 04:02] LABS: Basophils % 0.1 %; Eosinophils % 0.5 %; Immature Granulocytes % 1.3 % (0-4); Lymphocytes # 0.8 K/mcL (0.6-4.6); Lymphocytes % 10.7 %; Mean Corpuscular HGB Conc 33.3 g/dL (31.6-35.5); Mean Corpuscular Hemoglobin 29.8 pg (28.0-33.3); Mean Corpuscular Volume 89.4 fL (83.0-100.0); Mean Platelet Volume 10.9 fL (9.4-12.4); Monocytes # 0.3 K/mcL (0.0-1.3); Monocytes % 3.7 %; Neutrophils # 6.4 K/mcL (1.6-8.9); Platelet Count 68 K/mcL (140-400); Red Blood Count 3.02 M/mcL (4.19-5.50); Red Cell Distribution Width 15.5 % (11.5-14.5); Segmented Neutrophils % 83.7 %; White Blood Count 7.7 K/mcL (4.3-11.1)
[2021-11-25 04:07] LABS: VBG Ionized Calcium 1.14 mmol/L (1.15-1.35)
[2021-11-25] MEDS: D10% in Water 500 ML IVC SCH ×3 (04:11→14:23)
[2021-11-25 04:36] LABS: ABG Base Excess -4 mEq/L (-2 to 3); ABG HCO3 20 mEq/L (21-27); ABG Oxygen Saturation 97 % (95-98); ABG PCO2 35 mmHg (35-45); ABG PH 7.38 pH Units (7.32-7.45); ABG PO2 95 mmHg (85-104); ABG TCO2 21 mEq/L (20-26); Blood Gas Modality ASSIST CONTROL; Blood Gas VT 430 cc
[2021-11-25 04:48] LABS: Albumin 2.2 g/dL (3.5-5.7); Bilirubin,Direct 0.2 mg/dL (0.0-0.2); Bilirubin,Indirect 0.2 mg/dL (0.0-1.0); Bilirubin,Total 0.4 mg/dL (0.3-1.0); Calcium 7.4 mg/dL (8.6-10.3); Globulin 2.1 g/dL (2.4-3.5); Magnesium 2.5 mg/dL (1.6-2.6); Phosphorous 4.3 mg/dL (2.7-4.5); Potassium 3.5 mEq/L (3.5-5.1); Total Protein 4.3 g/dL (6.4-8.9)
[2021-11-25] MEDS: *HR* Heparin 5,000 UNIT/ML VIAL SQ SCH ×2 (06:07→17:14)
[2021-11-25] MEDS: Pantoprazole 40 MG VIAL IVP SCH ×2 (06:07→17:14)
[2021-11-25] MEDS: MetroNIDAZOLE 500 MG/100 ML 500 MG/100 ML BAG IVPB SCH ×4 (06:07→23:45)
[2021-11-25] MEDS: Cefepime HCl 2,000 MG in 0.9 % Sodium Chloride 10 ML IVP SCH (06:08)
[2021-11-25 06:55] LABS: ANA IgG by ELISA NONE DETECTED (None Detected)
[2021-11-25] MEDS: Budesonide/Formoterol 160/4.5 1 PUFF INH IH SCH ×2 (07:29→19:46)
[2021-11-25] MEDS: Chlorhexidine Rinse 15 ML MOUTHWASH MM SCH ×2 (08:11→20:10)
[2021-11-25] MEDS: FentaNYL (PF) 1,000 MCG/100 ML IV.SOLN IVC SCH ×2 (09:20→20:30)
[2021-11-25] MEDS: Norepinephrine 32 MG in 0.9 % Sodium Chloride 218 ML IVC SCH (15:58)
[2021-11-25] MEDS ORDERED: Clinimix E 5%-15% SOLUTION 2,000 ML with MVI, adult with vitamin K 10 ML IVC SCH (17:00)
[2021-11-26 04:05] LABS: Basophils % 0.2 %; Eosinophils % 0.6 %
[2021-11-26 04:07] LABS: Hematocrit 26.6 % (37.5-50.1); Hemoglobin 8.9 g/dL (12.9-16.9); Immature Granulocytes % 1.6 % (0-4); Immature Platelets 3.9 % (1.1-6.1); Lymphocytes # 0.7 K/mcL (0.6-4.6); Lymphocytes % 10.3 %; Mean Corpuscular HGB Conc 33.5 g/dL (31.6-35.5); Mean Corpuscular Hemoglobin 30.7 pg (28.0-33.3); Mean Corpuscular Volume 91.7 fL (83.0-100.0); Mean Platelet Volume 11.6 fL (9.4-12.4); Monocytes # 0.2 K/mcL (0.0-1.3); Monocytes % 3.8 %; Red Cell Distribution Width 15.6 % (11.5-14.5); Segmented Neutrophils % 83.5 %; White Blood Count 6.4 K/mcL (4.3-11.1)
[2021-11-26 04:10] LABS: Neutrophils # 5.3 K/mcL (1.6-8.9); Platelet Count 45 K/mcL (140-400)
[2021-11-26] MEDS: Artificial Tears SOLN 15 ML BOTTLE BOTH EYES SCH ×6 (04:12→23:19)
[2021-11-26 04:23] LABS: Albumin 2.2 g/dL (3.5-5.7); Bilirubin,Direct 0.1 mg/dL (0.0-0.2); Bilirubin,Indirect 0.3 mg/dL (0.0-1.0); Bilirubin,Total 0.4 mg/dL (0.3-1.0); Calcium 7.4 mg/dL (8.6-10.3); Globulin 2.1 g/dL (2.4-3.5); Magnesium 2.3 mg/dL (1.6-2.6); Phosphorous 3.5 mg/dL (2.7-4.5); Potassium 3.3 mEq/L (3.5-5.1); Total Protein 4.3 g/dL (6.4-8.9)
[2021-11-26 04:33] LABS: ABG Base Excess -4 mEq/L (-2 to 3); ABG HCO3 21 mEq/L (21-27); ABG Oxygen Saturation 94 % (95-98); ABG PCO2 38 mmHg (35-45); ABG PH 7.35 pH Units (7.32-7.45); ABG PO2 76 mmHg (85-104); ABG TCO2 22 mEq/L (20-26); Blood Gas Modality ASSIST CONTROL; Blood Gas VT 430 cc
[2021-11-26 04:36] LABS: VBG Ionized Calcium 1.17 mmol/L (1.15-1.35)
[2021-11-26] MEDS: FentaNYL (PF) 1,000 MCG/100 ML IV.SOLN IVC SCH ×3 (04:52→20:04)
[2021-11-26] MEDS: Potassium Chloride 40 MEQ/200 ML BAG IVPB PRN (05:45)
[2021-11-26] MEDS: MetroNIDAZOLE 500 MG/100 ML 500 MG/100 ML BAG IVPB SCH ×4 (06:28→23:06)
[2021-11-26] MEDS: Pantoprazole 40 MG VIAL IVP SCH ×2 (06:28→17:02)
[2021-11-26] MEDS: Cefepime HCl 2,000 MG in 0.9 % Sodium Chloride 10 ML IVP SCH (06:28)
[2021-11-26] MEDS: *HR* Heparin 5,000 UNIT/ML VIAL SQ SCH ×2 (06:28→17:05)
[2021-11-26] MEDS: Budesonide/Formoterol 160/4.5 1 PUFF INH IH SCH ×2 (07:09→20:11)
[2021-11-26] MEDS: Dexmedetomidine HCl 400 MCG/100 ML MLS IVC SCH ×3 (07:12→23:05)
[2021-11-26 07:13] LABS: Alpha 2 Globulin (PEP) 0.79 g/dL (0.48-1.05); Beta Globulin (PEP) 0.62 g/dL (0.48-1.10)
[2021-11-26] MEDS: Chlorhexidine Rinse 15 ML MOUTHWASH MM SCH ×2 (07:22→19:25)
[2021-11-26] MEDS: D10% in Water 500 ML IVC SCH ×2 (07:23→17:04)
[2021-11-26 09:45] LABS: Immunoglobulin G 1065 mg/dL (768-1632)
[2021-11-26 09:46] LABS: Immunoglobulin A 255 mg/dL (68-408); Immunoglobulin M 114 mg/dL (35-263)
[2021-11-26 09:48] LABS: IFE Reflexed IFE Done
[2021-11-26] MEDS: Norepinephrine 32 MG in 0.9 % Sodium Chloride 218 ML IVC SCH (12:10)
[2021-11-26 13:27] LABS: Basophils % 0.2 %; Hemoglobin 8.6 g/dL (12.9-16.9); Mean Corpuscular Hemoglobin 30.3 pg (28.0-33.3); Monocytes % 4.5 %; Red Blood Count 2.84 M/mcL (4.19-5.50)
[2021-11-26 13:29] LABS: Eosinophils # 0.1 K/mcL (0.0-0.6); Eosinophils % 1.2 %; Immature Granulocytes % 2.2 % (0-4); Immature Platelets 5.3 % (1.1-6.1); Lymphocytes # 0.6 K/mcL (0.6-4.6); Lymphocytes % 10.5 %; Mean Corpuscular HGB Conc 33.1 g/dL (31.6-35.5); Mean Corpuscular Volume 91.5 fL (83.0-100.0); Mean Platelet Volume 11.5 fL (9.4-12.4); Monocytes # 0.3 K/mcL (0.0-1.3); Neutrophils # 4.9 K/mcL (1.6-8.9); Nucleated Red Blood Cells 0.3 /100 WBC (0); Red Cell Distribution Width 15.6 % (11.5-14.5); Segmented Neutrophils % 81.4 %
[2021-11-26 13:30] LABS: Platelet Count 40 K/mcL (140-400)
[2021-11-26 13:41] LABS: Calcium 7.4 mg/dL (8.6-10.3); Potassium 3.7 mEq/L (3.5-5.1)
[2021-11-26] MEDS ORDERED: Clinimix E 5%-15% SOLUTION 2,000 ML with MVI, adult with vitamin K 10 ML IVC SCH (17:00)
[2021-11-27] MEDS: FentaNYL (PF) 1,000 MCG/100 ML IV.SOLN IVC SCH (02:06)
[2021-11-27] MEDS: Artificial Tears SOLN 15 ML BOTTLE BOTH EYES SCH ×6 (03:17→19:24)
[2021-11-27 03:46] LABS: VBG Ionized Calcium 1.19 mmol/L (1.15-1.35)
[2021-11-27 04:00] LABS: Basophils % 0.2 %; Eosinophils # 0.1 K/mcL (0.0-0.6); Eosinophils % 0.5 %; Hematocrit 27.7 % (37.5-50.1); Immature Granulocytes % 2.5 % (0-4); Immature Platelets 6.3 % (1.1-6.1); Lymphocytes # 0.7 K/mcL (0.6-4.6); Lymphocytes % 7.4 %; Mean Corpuscular HGB Conc 32.5 g/dL (31.6-35.5); Mean Corpuscular Hemoglobin 29.8 pg (28.0-33.3); Mean Corpuscular Volume 91.7 fL (83.0-100.0); Mean Platelet Volume 12.1 fL (9.4-12.4); Monocytes # 0.5 K/mcL (0.0-1.3); Monocytes % 5.3 %; Neutrophils # 7.9 K/mcL (1.6-8.9); Nucleated Red Blood Cells 0.2 /100 WBC (0); Platelet Count 50 K/mcL (140-400); Red Blood Count 3.02 M/mcL (4.19-5.50); Red Cell Distribution Width 15.8 % (11.5-14.5); Segmented Neutrophils % 84.1 %; White Blood Count 9.4 K/mcL (4.3-11.1)
[2021-11-27 04:15] LABS: Albumin 2.3 g/dL (3.5-5.7); Bilirubin,Total 0.5 mg/dL (0.3-1.0); Calcium 7.6 mg/dL (8.6-10.3); Globulin 2.3 g/dL (2.4-3.5); Magnesium 2.2 mg/dL (1.6-2.6); Phosphorous 3.5 mg/dL (2.7-4.5); Potassium 3.6 mEq/L (3.5-5.1); Total Protein 4.6 g/dL (6.4-8.9)
[2021-11-27 04:33] LABS: ABG Base Excess -5 mEq/L (-2 to 3); ABG HCO3 20 mEq/L (21-27); ABG Oxygen Saturation 93 % (95-98); ABG PCO2 35 mmHg (35-45); ABG PH 7.36 pH Units (7.32-7.45); ABG PO2 70 mmHg (85-104); ABG TCO2 21 mEq/L (20-26); Blood Gas VT 430 cc
[2021-11-27] MEDS: Potassium Chloride 40 MEQ/200 ML BAG IVPB PRN (04:38)
[2021-11-27] MEDS: Dexmedetomidine HCl 400 MCG/100 ML MLS IVC SCH ×2 (05:00→17:36)
[2021-11-27] MEDS: MetroNIDAZOLE 500 MG/100 ML 500 MG/100 ML BAG IVPB SCH ×3 (05:02→18:00)
[2021-11-27] MEDS: Pantoprazole 40 MG VIAL IVP SCH ×2 (05:04→18:00)
[2021-11-27] MEDS: Cefepime HCl 2,000 MG in 0.9 % Sodium Chloride 10 ML IVP SCH (05:04)
[2021-11-27] MEDS: Norepinephrine 32 MG in 0.9 % Sodium Chloride 218 ML IVC SCH (05:49)
[2021-11-27] MEDS: Budesonide/Formoterol 160/4.5 1 PUFF INH IH SCH ×2 (07:29→20:40)
[2021-11-27] MEDS: Chlorhexidine Rinse 15 ML MOUTHWASH MM SCH ×2 (07:36→19:24)
[2021-11-27] MEDS: D10% in Water 500 ML IVC SCH (07:40)
[2021-11-27] MEDS ORDERED: Clinimix E 5%-15% SOLUTION 2,000 ML with MVI, adult with vitamin K 10 ML IVC SCH (17:00)
[2021-11-28] MEDS: MetroNIDAZOLE 500 MG/100 ML 500 MG/100 ML BAG IVPB SCH ×4 (00:02→17:46)
[2021-11-28 04:20] LABS: Basophils % 0.2 %; Eosinophils % 0.2 %; Hemoglobin 9.4 g/dL (12.9-16.9); Monocytes % 5.7 %
[2021-11-28 04:22] LABS: Hematocrit 28.8 % (37.5-50.1); Immature Granulocytes % 1.9 % (0-4); Immature Platelets 6.9 % (1.1-6.1); Lymphocytes # 0.6 K/mcL (0.6-4.6); Lymphocytes % 4.6 %; Mean Corpuscular HGB Conc 32.6 g/dL (31.6-35.5); Mean Corpuscular Hemoglobin 29.8 pg (28.0-33.3); Mean Corpuscular Volume 91.4 fL (83.0-100.0); Mean Platelet Volume 12.1 fL (9.4-12.4); Monocytes # 0.7 K/mcL (0.0-1.3); Neutrophils # 10.9 K/mcL (1.6-8.9); Nucleated Red Blood Cells 0.2 /100 WBC (0); Red Blood Count 3.15 M/mcL (4.19-5.50); Red Cell Distribution Width 15.5 % (11.5-14.5); Segmented Neutrophils % 87.4 %; White Blood Count 12.5 K/mcL (4.3-11.1)
[2021-11-28 04:24] LABS: VBG Ionized Calcium 1.19 mmol/L (1.15-1.35)
[2021-11-28 04:40] LABS: Albumin 2.5 g/dL (3.5-5.7); Bilirubin,Total 0.4 mg/dL (0.3-1.0); Calcium 7.9 mg/dL (8.6-10.3); Globulin 2.6 g/dL (2.4-3.5); Magnesium 2.2 mg/dL (1.6-2.6); Phosphorous 2.7 mg/dL (2.7-4.5); Total Protein 5.1 g/dL (6.4-8.9)
[2021-11-28 04:46] LABS: Platelet Count 42 K/mcL (140-400)
[2021-11-28] MEDS: Artificial Tears SOLN 15 ML BOTTLE BOTH EYES SCH ×6 (05:26→22:10)
[2021-11-28] MEDS: Dexmedetomidine HCl 400 MCG/100 ML MLS IVC SCH (06:11)
[2021-11-28] MEDS: Pantoprazole 40 MG VIAL IVP SCH ×2 (06:15→17:46)
[2021-11-28] MEDS: Cefepime HCl 2,000 MG in 0.9 % Sodium Chloride 10 ML IVP SCH (06:15)
[2021-11-28] MEDS: Chlorhexidine Rinse 15 ML MOUTHWASH MM SCH ×2 (07:29→22:09)
[2021-11-28] MEDS: Budesonide/Formoterol 160/4.5 1 PUFF INH IH SCH (10:37)
[2021-11-28] MEDS ORDERED: Furosemide 20 MG/2 ML VIAL IVP ONE (15:06)
[2021-11-28] MEDS ORDERED: Ipratropium/Albuterol Neb 3 ML IH SCH (16:00)
[2021-11-28] MEDS ORDERED: Clinimix E 5%-15% SOLUTION 2,000 ML with MVI, adult with vitamin K 10 ML IVC SCH (17:00)
[2021-11-28] MEDS ORDERED: *HR* LORazepam Oral Conc 2 MG/ML SL PRN (18:29)
[2021-11-28] MEDS ORDERED: Budesonide Neb 0.5 MG/2 ML IH SCH (22:00)
[2021-11-29] MEDS: Morphine Sulfate Oral CONC 10 MG/0.5 ML ORAL.SYG SL PRN ×2 (03:25→09:28)
[2021-11-29] MEDS: Pantoprazole 40 MG VIAL IVP SCH ×2 (05:41→16:53)
[2021-11-29] MEDS: Artificial Tears SOLN 15 ML BOTTLE BOTH EYES SCH ×7 (05:43→23:38)
[2021-11-29 06:47] LABS: VBG Ionized Calcium 1.15 mmol/L (1.15-1.35)
[2021-11-29 07:01] LABS: Basophils % 0.2 %; Hematocrit 32.1 % (37.5-50.1); Hemoglobin 10.6 g/dL (12.9-16.9); Immature Granulocytes % 1.5 % (0-4); Immature Platelets 11.9 % (1.1-6.1); Lymphocytes # 0.5 K/mcL (0.6-4.6); Lymphocytes % 3.4 %; Mean Corpuscular Hemoglobin 29.9 pg (28.0-33.3); Mean Corpuscular Volume 90.7 fL (83.0-100.0); Mean Platelet Volume 13.1 fL (9.4-12.4); Monocytes # 0.6 K/mcL (0.0-1.3); Monocytes % 3.9 %; Neutrophils # 14.5 K/mcL (1.6-8.9); Platelet Count 52 K/mcL (140-400); Red Blood Count 3.54 M/mcL (4.19-5.50); Red Cell Distribution Width 15.2 % (11.5-14.5); White Blood Count 15.9 K/mcL (4.3-11.1)
[2021-11-29 07:16] LABS: Albumin 2.7 g/dL (3.5-5.7); Albumin/Globulin Ratio 0.9 (1.1-2.2); Bilirubin,Total 0.7 mg/dL (0.3-1.0); Calcium 8.3 mg/dL (8.6-10.3); Globulin 2.9 g/dL (2.4-3.5); Magnesium 2.3 mg/dL (1.6-2.6); Phosphorous 3.9 mg/dL (2.7-4.5); Potassium 3.6 mEq/L (3.5-5.1); Total Protein 5.6 g/dL (6.4-8.9)
[2021-11-29] MEDS: Chlorhexidine Rinse 15 ML MOUTHWASH MM SCH (09:27)
[2021-11-29] MEDS ORDERED: *HR* HYDROmorphone 2 MG/ML SYRINGE IVP PRN ×2 (10:45→15:18)
[2021-11-29] MEDS ORDERED: Haloperidol Lactate 5 MG/ML VIAL IVP PRN ×2 (10:46→15:18)
[2021-11-29] MEDS ORDERED: *HR* LORazepam Oral Conc 2 MG/ML SL PRN (10:47)
[2021-11-29] MEDS ORDERED: Atropine Sulfate 1% 40 DROP/2 ML BOTTLE SL PRN ×2 (10:47→15:18)
[2021-11-29] MEDS ORDERED: Artificial Tears SOLN 15 ML BOTTLE BOTH EYES PRN (15:18)
[2021-11-29] MEDS ORDERED: Ondansetron 4 MG/2 ML VIAL IVP PRN (15:18)
[2021-11-29] MEDS: *HR* LORazepam Oral Conc 2 MG/ML SL PRN (16:53)
[2021-11-29] MEDS ORDERED: Clinimix E 5%-15% SOLUTION 2,000 ML with MVI, adult with vitamin K 10 ML IVC SCH (17:00)
[2021-11-30] MEDS: Artificial Tears SOLN 15 ML BOTTLE BOTH EYES SCH ×2 (04:39→09:24)
[2021-11-30] MEDS: Pantoprazole 40 MG VIAL IVP SCH (05:20)
[2021-11-30 07:30] VITALS: BP 129/73; PULSE 70; TEMP 98; O2SAT 92
[2021-11-30] MEDS: *HR* LORazepam Oral Conc 2 MG/ML SL PRN (09:39)
== END 2021-11-30 10:37 | disposition hospice, inpatient (51) | DRG 871 ==
LOC: 2NNU → SUATTDRO 11-22 18:41 → ICNU 11-24 21:05 → 2ANU 11-28 12:44 → 2NENU 11-28 16:51 → 2ANU 11-29 14:50
PROVIDERS: ADMIT Internal Medicine; ATTEND Internal Medicine

== ENCOUNTER 2021-11-30 10:19 | Inpatient (IN) ==
[2021-11-30] MEDS ORDERED: *HR* HYDROmorphone (PF) 1 MG/ML SYRINGE IVP PRN (13:02)
[2021-11-30] MEDS ORDERED: *HR* LORazepam Oral Conc 2 MG/ML PO PRN (13:02)
[2021-11-30] MEDS ORDERED: Haloperidol Lactate 5 MG/ML VIAL IVP PRN (13:02)
[2021-11-30] MEDS ORDERED: Ondansetron 4 MG/2 ML VIAL IVP PRN (13:02)
[2021-11-30] MEDS ORDERED: Bisacodyl 10 MG RECTAL SUPPOSITORY RC PRN (13:02)
[2021-11-30] MEDS ORDERED: Atropine Sulfate 1% 40 DROP/2 ML BOTTLE SL PRN (13:02)
[2021-11-30] MEDS ORDERED: Saliva Stimulant 44.3ml BOTTLE PO PRN (13:08)
[2021-11-30] MEDS ORDERED: Artificial Tears SOLN 15 ML BOTTLE BOTH EYES SCH (21:00)
== END 2021-11-30 17:31 | disposition hospice, inpatient (51) | DRG 951 ==
LOC: 2ANU 11:01
PROVIDERS: ADMIT Internal Medicine Hospice and Palliative Medicine; ATTEND Internal Medicine Hospice and Palliative Medicine